=== PATIENT | female | born 1955 | race Caucasian/White ===

== ENCOUNTER 2017-05-29 21:40 | Inpatient (IN) | payer MEDICARE ==
[~2017-05-29 21:40] MED LIST: CARV12.5; CLOP75; DIAZ10; DIGO.125; LASI20TA; LORT5TAB; PREV30CA36; REST15CA; ROSU20; SOMA350T; ZOLO25TA
[2017-05-29 21:50] VITALS: BP 121/71; PULSE 87; RESP 30; TEMP 98.9; O2SAT 85
[2017-05-29 21:53] VITALS: O2SAT 90
[2017-05-29 21:55] VITALS: O2SAT 94
[2017-05-29] MEDS ORDERED: SODIUM CHLORIDE 0.9% FLUSH 10 ML FLUSH IVF PRN (22:00)
[2017-05-29] MEDS ORDERED: DIGO0.12 PO (22:13)
[2017-05-29] MEDS ORDERED: PROT40TA PO (22:13)
[2017-05-29] MEDS ORDERED: CLOP75TA PO (22:16)
[2017-05-29] MEDS ORDERED: ATOR20TA15 PO (22:16)
[2017-05-29] MEDS ORDERED: BROV15NE NEB (22:16)
[2017-05-29] MEDS ORDERED: GABA300C5 PO (22:16)
[2017-05-29] MEDS ORDERED: GUAI600T11 PO (22:16)
[2017-05-29] MEDS ORDERED: CARV6.252 PO (22:16)
--- NOTE | 2017-05-29 22:17 | PD ---
HPI Chief Complaint: Respiratory Symptoms Time Seen by Provider: 21:52 Travel History International Travel<30 days: No Contact w/Intl Traveler<30days: No History of Present Illness HPI 62-year-old female with PMH of heparin-induced thrombocytopenia, cerebral infarct, on Plavix presents to the ED via EMS after nurses in her [facility] were concerned for weakness and breathing difficulties 2 hours. Patient has paralysis on the right side, aphasia secondary to her stroke. She denies headache or dizziness. She denies chest pain or palpitations. She endorses shortness of breath, weakness. She denies abdominal pain or dysuria. She answers simple questions with yes or no or shakes her head but is unable to provide much meaningful history. EMS reports O2 saturations in the 80s on arrival. The patient is not oxygen dependent at the [facility]. PFSH Past Medical History Arthritis: No Asthma: No Autoimmune Disease: No Blood Disorders: No Anxiety: No Depression: No Heart Rhythm Problems: No Cancer: No Cardiovascular Problems: Yes (CHEST PAIN, ANGINA, HEART ATTACK) High Cholesterol: Yes Chemotherapy: No Chest Pain: Yes Congestive Heart Failure: Yes COPD: Yes Cerebrovascular Accident: Yes Coronary Artery Disease: Yes Diabetes: No Diminished Hearing: No Endocrine: No GERD: Yes Glaucoma: No Genitourinary: No Headaches: No Hepatitis: No Hiatal Hernia: Yes Hypertension: Yes Immune Disorder: No Kidney Stones: No Medical other: Yes (dysarthria, htn, hyperlipidemia, COPD) Musculoskeletal: No Neurologic: Yes (STROKE) Psychiatric: No Reproductive: No Respiratory: No Myocardial Infarction: Yes Radiation Therapy: No Renal Failure: No Seizures: No Sickle Cell Disease: No Sleep Apnea: No Thyroid Disease: No Ulcer: No Tetanus Vaccination: Unknown Influenza Vaccination: No Menopausal: Yes Past Surgical History Abdominal Surgery: Yes AICD: Yes Appendectomy: Yes Arteriovenous Shunt: No Body Medical Devices: STATES CARDIAC STINTS Cardiac Surgery: Yes Cholecystectomy: Yes Coronary Artery Bypass Graft: Yes (3 VESSEL BYPASS) Coronary Stent: Yes (MULTIPLE STENT PLACEMENTS) Ear Surgery: No Endocrine Surgery: No Eye Surgery: No Genitourinary Surgery: No Gynecologic Surgery: No Insulin Pump: No Joint Replacement: No Oral Surgery: No Pacemaker: Yes (AICD V-193) Thoracic Surgery: Yes Other Surgery: Yes (CABG X 3 CAROTID ARTERY, APPY, RAUL, AICD) Social History Alcohol Use: No Tobacco Use: No Substance Use: No Allergies-Medications (Allergen,Severity, Reaction): Coded Allergies: adhesive (Unverified Allergy, Severe, 05/29/17) aspirin (Unverified Allergy, Severe, 05/29/17) diatrizoate meglumine (Unverified Allergy, Severe, Hives, 05/29/17) enoxaparin (Unverified Allergy, Severe, 05/29/17) HIT POSITIVE gadobenic acid (Unverified Allergy, Severe, Hives, 05/29/17) gadodiamide (Unverified Allergy, Severe, Hives, 05/29/17) gadoteridol (Unverified Allergy, Severe, Hives, 05/29/17) heparin (porcine) (Unverified Allergy, Severe, 05/29/17) HIT POSITIVE iodine (Unverified Allergy, Severe, 05/29/17) iodixanol (Unverified Allergy, Severe, Hives, 05/29/17) iohexol (Unverified Allergy, Severe, Hives, 05/29/17) sodium iodide (Unverified Allergy, Severe, 05/29/17) sodium iodide (Unverified Allergy, Severe, 05/29/17) sulfamethoxazole (Unverified Allergy, Severe, 05/29/17) trimethoprim (Unverified Allergy, Severe, 05/29/17) Reported Meds & Prescriptions Reported Meds & Active Scripts Active Reported Carvedilol 6.25 Mg Tab 6.25 Mg PO BID Mucus Relief ER (Guaifenesin) 600 Mg Tab 600 Mg PO BID PRN Gabapentin 300 Mg Cap 300 Mg PO TID Brovana Neb (Arformoterol Neb) 15 Mcg/2 Ml Vial 1 Nebule NEB BID Maintenance treatment of bronchoconstriction in COPD. Atorvastatin (Atorvastatin Calcium) 20 Mg Tab 20 Mg PO HS Clopidogrel (Clopidogrel Bisulfate) 75 Mg Tab 75 Mg PO DAILY Digoxin 0.125 Mg Tab 125 Mcg PO DAILY Protonix (Pantoprazole Sodium) 40 Mg Tab 40 Mg PO DAILY Review of Systems Except as stated in HPI: all other systems reviewed are Neg Physical Exam Narrative GENERAL: Well-nourished, well-developed thin white female with extra work of breathing. SKIN: Focused skin assessment warm/dry. HEAD: Normocephalic. Atraumatic. EYES: No scleral icterus. No injection or drainage. NECK: Supple, trachea midline. No JVD or lymphadenopathy. CARDIOVASCULAR: Regular rate and rhythm without murmurs, gallops, or rubs. RESPIRATORY: Breath sounds equal bilaterally. Positive accessory muscle use. GASTROINTESTINAL: Abdomen soft, non-tender, nondistended. MUSCULOSKELETAL: No cyanosis, or edema. NEUROLOGICAL: Awake and alert. Aphasic. Paralysis with contractures of the right side. BACK: Nontender without obvious deformity. No CVA tenderness. Data Data Last Documented VS Vital Signs Date Time Temp Pulse Resp B/P (MAP) Pulse Ox O2 Delivery O2 Flow Rate FiO2 05/29/17 21:55 94 Nasal Cannula 6.00 05/29/17 21:50 98.9 87 30 Orders Orders Complete Blood Count With Diff (05/29/17 21:53) Comprehensive Metabolic Panel (05/29/17 21:53) B-Type Natriuretic Peptide (05/29/17 21:53) Act Partial Throm Time (Ptt) (05/29/17 21:53) Prothrombin Time / Inr (Pt) (05/29/17 21:53) Ckmb (Isoenzyme) Profile (05/29/17 21:53) Troponin I (05/29/17 21:53) Urinalysis - C+S If Indicated (05/29/17 21:53) Iv Access Insert/Monitor (05/29/17 21:53) Electrocardiogram (05/29/17 21:53) Ecg Monitoring (05/29/17 21:53) Oximetry (05/29/17 21:53) Oxygen Administration (05/29/17 21:53) Chest, Single Ap (05/29/17 21:53) Sodium Chloride 0.9% Flush (Ns Flush) (05/29/17 22:00) Ventilation & Perfusion Scan (05/29/17 ) Furosemide Inj (Lasix Inj) (05/29/17 22:45) Resp Bipap / Cpap Non Invas Vt (05/29/17 ) Urinary Catheter Insert/Apply (05/29/17 22:44) Labs Laboratory Tests Test 05/29/17 22:30 White Blood Count 17.8 TH/MM3 Red Blood Count 4.08 MIL/MM3 Hemoglobin 12.1 GM/DL Hematocrit 37.2 % Mean Corpuscular Volume 91.1 FL Mean Corpuscular Hemoglobin 29.6 PG Mean Corpuscular Hemoglobin Concent 32.5 % Red Cell Distribution Width 14.9 % Platelet Count 271 TH/MM3 Mean Platelet Volume 8.3 FL Neutrophils (%) (Auto) 93.3 % Lymphocytes (%) (Auto) 3.0 % Monocytes (%) (Auto) 3.5 % Eosinophils (%) (Auto) 0.0 % Basophils (%) (Auto) 0.2 % Neutrophils # (Auto) 16.6 TH/MM3 Lymphocytes # (Auto) 0.5 TH/MM3 Monocytes # (Auto) 0.6 TH/MM3 Eosinophils # (Auto) 0.0 TH/MM3 Basophils # (Auto) 0.0 TH/MM3 CBC Comment DIFF FINAL Differential Comment Prothrombin Time 11.2 SEC Prothromb Time International Ratio 1.1 RATIO Activated Partial Thromboplast Time 25.4 SEC MDM Medical Decision Making Medical Screen Exam Complete: Yes Emergency Medical Condition: Yes Differential Diagnosis PE versus ACS versus aspiration pneumonia versus pneumonia versus other Narrative Course 62-year-old female with PMH of heparin-induced thrombocytopenia, cerebral infarct, on Plavix presents to the ED via EMS for evaluation after nurses at her [facility] found her struggling to breathe. Patient has residual aphasia and right -sided weakness from her stroke. She is unable to provide much information. However, O2 sats are 85% on room air on presentation and there is extra work of breathing. Lung sounds clear and equal bilaterally. The 12-lead provided by EMS shows S1, Q3, T3, suspicious for PE. Patient's placed on 6 L nasal cannula to sustain O2 sats in the 90s. BiPAP was ordered. X-ray suggests pulmonary edema. Patient was administered 20 mg Lasix IV. Patient has an allergy to IV dye. EKG rate 84, paced rhythm, S1 every 3 T3 again noted. Reviewed by Dr. Ortega. VQ scan, lab work, ordered and pending. Patient signed out to Dr. Ortega at the end of shift. Please see his note for disposition. Daija German May 29, 2017 22:17
--- NOTE | 2017-05-29 22:22 | RADRPT ---
EXAM DATE/TIME: 05/29/2017 21:58 [facility] COMPARISON: No previous studies available for comparison. INDICATIONS : Shortness of breath. MEDICAL HISTORY : Hypertension. Chronic obstructive pulmonary disease. Myocardial infarction. Stroke. SURGICAL HISTORY : CABG. Pacemaker. Cardiac stent. ENCOUNTER: Initial ACUITY: 1 day PAIN SCORE: 0/10 LOCATION: Bilateral chest FINDINGS: A single AP erect portable view of the chest was obtained and demonstrates the patient status post me eliazar sternotomy. There is a left subclavian AV sequential transvenous pacer in place with defibrillat or lead. The heart size is mildly prominent. Perihilar and bibasilar opacities are present. The costo phrenic angles are blunted. The bony thorax is intact with moderate scoliosis of the thoracic spine. CONCLUSION: 1. Perihilar and bibasilar opacities most characteristic of pulmonary edema. 2. Small pleural effusions. Filippo Jung MD on May 29, 2017 at 22:18 Board Certified Radiologist. This report was verified electronically.
[2017-05-29 22:39] LABS: AUTOMATED NEUTROPHIL # 16.6 TH/MM3 (1.8-7.7); BASOPHIL % 0.2 % (0.0-2.0); HEMATOCRIT 37.2 % (35.0-46.0); HEMOGLOBIN 12.1 GM/DL (11.6-15.3); LYMPHOCYTE # 0.5 TH/MM3 (1.0-4.8); MEAN CELL VOLUME 91.1 FL (80.0-100.0); MEAN CORPUSCULAR HEMOGLOBIN 29.6 PG (27.0-34.0); MEAN CORPUSCULAR HGB CONC 32.5 % (32.0-36.0); MEAN PLATELET VOLUME 8.3 FL (7.0-11.0); MONO % 3.5 % (0.0-8.0); MONOCYTE # 0.6 TH/MM3 (0-0.9); NEUT % 93.3 % (16.0-70.0); PLATELET COUNT 271 TH/MM3 (150-450); RED BLOOD COUNT 4.08 MIL/MM3 (4.00-5.30); RED CELL DISTRIBUTION WIDTH 14.9 % (11.6-17.2); WHITE BLOOD COUNT 17.8 TH/MM3 (4.0-11.0)
[2017-05-29] MEDS ORDERED: FUROSEMIDE 20 MG/2 ML VIAL IV PUSH ONE (22:45)
[2017-05-29 22:47] VITALS: O2SAT 95
[2017-05-29 22:49] LABS: INTERNATIONAL NORMALIZED RATIO 1.1 RATIO; PROTHROMBIN TIME - PATIENT 11.2 SEC (9.8-11.6)
[2017-05-29 22:51] LABS: AST (GOT) 29 U/L (15-37); BICARBONATE 25.1 MEQ/L (21.0-32.0); BLOOD UREA NITROGEN 21 MG/DL (7-18); CALCIUM 7.7 MG/DL (8.5-10.1); CHLORIDE 111 MEQ/L (98-107); CREATININE 0.57 MG/DL (0.50-1.00); GLOMERULAR FILTRATION RATE 107 ML/MIN (>89); GLUCOSE,RANDOM 111 MG/DL (74-106); SODIUM (NA) 143 MEQ/L (136-145)
[2017-05-29 22:52] LABS: ALT (GPT) 21 U/L (10-53)
[2017-05-29 22:56] LABS: ALKALINE PHOSPHATASE 88 U/L (45-117); TOTAL BILIRUBIN ADULT 0.7 MG/DL (0.2-1.0); TOTAL PROTEIN 5.1 GM/DL (6.4-8.2); TROPONIN I LESS THAN 0.02 NG/ML (0.02-0.05)
[2017-05-29] MEDS ORDERED: VANCOMYCIN INJ 1,000 MG in SODIUM CHLOR 0.9% 250 ML INJ 250 ML IV ONE (23:45)
[2017-05-29] MEDS ORDERED: PIPERACIL-TAZO 4.5 GM PREMIX 100 ML IV ONE (23:45)
[2017-05-30] VITALS (25 sets, daily range): BP systolic 82–144; BP diastolic 46–61; PULSE 66–98; RESP 16–20; TEMP 97.8–98.4; O2SAT 94–100
--- NOTE | 2017-05-30 00:22 | RADRPT ---
EXAM DATE/TIME: 05/29/2017 23:57 [facility] COMPARISON: CHEST SINGLE AP, May 29, 2017, 21:58. INDICATIONS : Short of breath for 1 day. DOSE: 8.1 mCi Tc99m MAA IV 3 mCi Tc99m DTPA aerosol MEDICAL HISTORY : Chronic obstructive pulmonary disease. Myocardial infarction. Hypertension. SURGICAL HISTORY : CABG Pacemaker. Coronary artery stent. ENCOUNTER: Initial ACUITY: 1 day PAIN SCALE: 3/10 LOCATION: Bilateral chest TECHNIQUE: Following five minutes of tidal breathing of DTPA aerosol, planar images of the lungs were performed in eight projections. The patient was then injected with MAA, and eight-view perfusion scan was perf ormed. FINDINGS: There is a homogeneous pattern of aerosol delivery to the periphery of both lungs. No focal ventilat ory defects are seen. Inhomogeneous ventilation and patchy central deposition of tracer. CONCLUSION: Low probability scan for pulmonary embolism Devin Castro MD on May 30, 2017 at 0:17 Board Certified Radiologist. This report was verified electronically.
--- NOTE | 2017-05-30 00:54 | PD ---
Data Data Last Documented VS Vital Signs Date Time Temp Pulse Resp B/P (MAP) Pulse Ox O2 Delivery O2 Flow Rate FiO2 05/30/17 00:30 98 90 05/30/17 00:29 84 18 97/55 (69) BiPAP 05/29/17 21:55 6.00 05/29/17 21:50 98.9 Orders Orders Complete Blood Count With Diff (05/29/17 21:53) Comprehensive Metabolic Panel (05/29/17 21:53) B-Type Natriuretic Peptide (05/29/17 21:53) Act Partial Throm Time (Ptt) (05/29/17 21:53) Prothrombin Time / Inr (Pt) (05/29/17 21:53) Ckmb (Isoenzyme) Profile (05/29/17:53) Troponin I (05/29/17:53) Urinalysis - C+S If Indicated (05/29/17 21:53) Iv Access Insert/Monitor (05/29/17 21:53) Electrocardiogram (05/29/17 21:53) Ecg Monitoring (05/29/17 21:53) Oximetry (05/29/17 21:53) Oxygen Administration (05/29/17 21:53) Chest, Single Ap (05/29/17 21:53) Sodium Chloride 0.9% Flush (Ns Flush) (05/29/17 22:00) Ventilation & Perfusion Scan (05/29/17 ) Furosemide Inj (Lasix Inj) (05/29/17 22:45) Resp Bipap / Cpap Non Invas Vt (05/29/17 ) Urinary Catheter Insert/Apply (05/29/17 22:44) Piperacil-Tazo 4.5 Gm Premix (Zosyn 4.5 (05/29/17 23:45) Vancomycin Inj (Vancomycin Inj) (05/29/17 23:45) Lactic Acid Sepsis Protocol (05/30/17 01:02) Blood Culture (05/30/17 01:02) Labs Laboratory Tests Test 05/29/17 22:30 White Blood Count 17.8 TH/MM3 Red Blood Count 4.08 MIL/MM3 Hemoglobin 12.1 GM/DL Hematocrit 37.2 % Mean Corpuscular Volume 91.1 FL Mean Corpuscular Hemoglobin 29.6 PG Mean Corpuscular Hemoglobin Concent 32.5 % Red Cell Distribution Width 14.9 % Platelet Count 271 TH/MM3 Mean Platelet Volume 8.3 FL Neutrophils (%) (Auto) 93.3 % Lymphocytes (%) (Auto) 3.0 % Monocytes (%) (Auto) 3.5 % Eosinophils (%) (Auto) 0.0 % Basophils (%) (Auto) 0.2 % Neutrophils # (Auto) 16.6 TH/MM3 Lymphocytes # (Auto) 0.5 TH/MM3 Monocytes # (Auto) 0.6 TH/MM3 Eosinophils # (Auto) 0.0 TH/MM3 Basophils # (Auto) 0.0 TH/MM3 CBC Comment DIFF FINAL Differential Comment Prothrombin Time 11.2 SEC Prothromb Time International Ratio 1.1 RATIO Activated Partial Thromboplast Time 25.4 SEC Blood Urea Nitrogen 21 MG/DL Creatinine 0.57 MG/DL Random Glucose 111 MG/DL Total Protein 5.1 GM/DL Albumin 2.0 GM/DL Calcium Level 7.7 MG/DL Alkaline Phosphatase 88 U/L Aspartate Amino Transf (AST/SGOT) 29 U/L Alanine Aminotransferase (ALT/SGPT) 21 U/L Total Bilirubin 0.7 MG/DL Sodium Level 143 MEQ/L Potassium Level 3.8 MEQ/L Chloride Level 111 MEQ/L Carbon Dioxide Level 25.1 MEQ/L Anion Gap 7 MEQ/L Estimat Glomerular Filtration Rate 107 ML/MIN Total Creatine Kinase 31 U/L Troponin I LESS THAN 0.02 NG/ML B-Type Natriuretic Peptide 117 PG/ML MDM Medical Record Reviewed: Yes Supervised Visit with YARIEL: Yes Narrative Course I, Dr. Ortega, have reviewed the advance practice practitioner's documentation and am in agreement, met with the patient face to face, made the diagnosis, and the medical decision making was done by me. *My assessment and Findings: Multiple medical comorbidities with pneumonia. Patient has been on BiPAP with an FiO2 of 90% with a pulse ox of 98. Zosyn and vancomycin started. CBC & BMP Diagram 05/29/17 22:30 Total Protein 5.1 L, Albumin 2.0 L, Calcium Level 7.7 L, Alkaline Phosphatase 88 , Aspartate Amino Transf (AST/SGOT) 29, Alanine Aminotransferase (ALT/SGPT) 21, Total Bilirubin 0.7 Last Impressions Chest X-Ray 05/29/17 [id number] Signed Impressions: Service Date/Time: May 21:58 - CONCLUSION: 1. Perihilar and bibasilar opacities most characteristic of pulmonary edema. 2. Small pleural effusions. Filippo Jung MD Lung Scan-V Nuclear Medicine 05/29/17 0000 Signed Impressions: Service Date/Time: May 23:57 - CONCLUSION: Low probability scan for pulmonary embolism Devin Castro MD Patient will be admitted for treatment of pneumonia. Her vital signs are within acceptable limits on BiPAP. d/w Dr Liya YOUNGG ordered along with lactic acid Critical Care Narrative Aggregate critical care time was 35 minutes. Time to perform other separately billable procedures was not included in the critical care time. My time did not include minutes spent treating any other patients simultaneously or on activities that did not directly contribute to the patient's treatment. The services I provided to this patient were to treat and/or prevent clinically significant deterioration that could result in: Cardiopulmonary arrest, respiratory arrest I provided critical care services requiring my management, as noted below: Chart data review, documentation time, medication orders and management, vital sign assessments/reviewing monitor data, ordering and reviewing lab tests, ordering and interpreting/reviewing x-rays and diagnostic studies, care of the patient and discussion of the patient with the admitting physicians. Diagnosis Primary Impression: PNA (pneumonia) Qualified Codes: J18.9 - Pneumonia, unspecified organism Additional Impressions: Hypoxia SIRS (systemic inflammatory response syndrome) Admitting Information Admitting Physician Requests: it Samson Ortega MD May 30, 2017 00:54
[2017-05-30] MEDS ORDERED: ACETAMINOPHEN 325 MG TAB PO PRN (02:00)
[2017-05-30] MEDS ORDERED: MAGNESIUM HYDROXIDE SUSP 30 ML CUP PO PRN (02:00)
[2017-05-30] MEDS ORDERED: LACTULOSE SYRUP 20 GM/30 ML CUP PO PRN (02:00)
[2017-05-30] MEDS ORDERED: SENNOSIDES 8.6 MG TAB PO PRN (02:00)
[2017-05-30] MEDS ORDERED: NALOXONE HCL 0.4 MG/ML AMP IV PUSH PRN (02:00)
[2017-05-30] MEDS ORDERED: ONDANSETRON HCL 4 MG/2 ML VIAL IVP PRN (02:00)
[2017-05-30] MEDS ORDERED: Vancomycin Consult Pharmacy 1 EA OTHER SCH (02:00)
[2017-05-30] MEDS ORDERED: BISACODYL 10 MG SUPP RECTAL PRN (02:00)
[2017-05-30] MEDS ORDERED: RESP: ALBUTEROL 2.5 MG/IPRATROPIUM 0.5 MG NEB (PRN) NEB (02:15)
--- NOTE | 2017-05-30 02:24 | HHI.HP ---
[facility] Primary Care Physician Unknown Admission Diagnosis PNA; SIRS; Hypoxia Diagnoses: Travel History International Travel<30 Days: No Contact w/Intl Traveler <30 Da: No History of Present Illness 62-year-old female with a past medical history significant for hypertension, COPD, CHF (no recent echo for comparison), history of CVA with residual right- sided hemiparesis and CAD presents to the emergency department from [facility] [place] [facility] facility for the evaluation of weakness and difficulty breathing 2 hours. The patient is on BiPAP when I evaluated her. She will open her eyes to voice but does not answer questions. Per emergency department documentation the patient endorses shortness of breath and weakness. She denied abdominal pain and dysuria. She denied chest pain/palpitations. No headaches or dizziness. Review of Systems Unable to obtain secondary to patient's clinical condition. Past Family Social History Past Medical History (Obtained from medical records) hypertension, COPD, CHF (no recent echo for comparison), history of CVA with residual right-sided hemiparesis and CAD Past Surgical History Unable to obtain secondary to clinical condition Reported Medications Reported Meds & Active Scripts Active Reported Carvedilol 6.25 Mg Tab 6.25 Mg PO BID Mucus Relief ER (Guaifenesin) 600 Mg Tab 600 Mg PO BID PRN Gabapentin 300 Mg Cap 300 Mg PO TID Brovana Neb (Arformoterol Neb) 15 Mcg/2 Ml Vial 1 Nebule NEB BID Maintenance treatment of bronchoconstriction in COPD. Atorvastatin (Atorvastatin Calcium) 20 Mg Tab 20 Mg PO HS Clopidogrel (Clopidogrel Bisulfate) 75 Mg Tab 75 Mg PO DAILY Digoxin 0.125 Mg Tab 125 Mcg PO DAILY Protonix (Pantoprazole Sodium) 40 Mg Tab 40 Mg PO DAILY Allergies: Coded Allergies: adhesive (Unverified Allergy, Severe, 05/29/17) aspirin (Unverified Allergy, Severe, 05/29/17) diatrizoate meglumine (Unverified Allergy, Severe, Hives, 05/29/17) enoxaparin (Unverified Allergy, Severe, 05/29/17) HIT POSITIVE gadobenic acid (Unverified Allergy, Severe, Hives, 05/29/17) gadodiamide (Unverified Allergy, Severe, Hives, 05/29/17) gadoteridol (Unverified Allergy, Severe, Hives, 05/29/17) heparin (porcine) (Unverified Allergy, Severe, 05/29/17) HIT POSITIVE iodine (Unverified Allergy, Severe, 05/29/17) iodixanol (Unverified Allergy, Severe, Hives, 05/29/17) iohexol (Unverified Allergy, Severe, Hives, 05/29/17) sodium iodide (Unverified Allergy, Severe, 05/29/17) sodium iodide (Unverified Allergy, Severe, 05/29/17) sulfamethoxazole (Unverified Allergy, Severe, 05/29/17) trimethoprim (Unverified Allergy, Severe, 05/29/17) Family History Unable to obtain Social History Unable to obtain Physical Exam Vital Signs Vital Signs Date Time Temp Pulse Resp B/P (MAP) Pulse Ox O2 Delivery O2 Flow Rate FiO2 05/30/17 01:22 79 18 82/50 (61) 94 BiPAP 80 05/30/17 00:30 98 90 05/30/17 00:29 84 18 97/55 (69) 96 BiPAP 05/29/17 22:47 95 100 05/29/17 21:55 94 Nasal Cannula 6.00 05/29/17 21:55 94 Nasal Cannula 6.00 05/29/17 21:53 90 Nasal Cannula 4.00 05/29/17 21:50 98.9 87 30 121/71 (88) 85 Room Air Physical Exam GENERAL: This is a well-nourished, well-developed patient, in no apparent distress. SKIN: No rashes, ecchymoses or lesions. Cool and dry. HEAD: Atraumatic. Normocephalic. No temporal or scalp tenderness. EYES: Pupils equal round and reactive. Extraocular motions intact. No scleral icterus. No injection or drainage. ENT: Nose without bleeding, purulent drainage or septal hematoma. Throat without erythema, tonsillar hypertrophy or exudate. Uvula midline. Airway patent. NECK: Trachea midline. No JVD or lymphadenopathy. Supple, nontender, no meningeal signs. CARDIOVASCULAR: Regular rate and rhythm without murmurs, gallops, or rubs. RESPIRATORY: Clear to auscultation. Breath sounds equal bilaterally. No wheezes , rales, or rhonchi. GASTROINTESTINAL: Abdomen soft, non-tender, nondistended. No hepato-splenomegaly , or palpable masses. No guarding. MUSCULOSKELETAL: Extremities without clubbing, cyanosis, or edema. No joint tenderness, effusion, or edema noted. No calf tenderness. NEUROLOGICAL: Opens eyes to voice. Does not follow commands. Laboratory Laboratory Tests Test 05/29/17 22:30 05/30/17 01:15 05/30/17 01:19 White Blood Count 17.8 Red Blood Count 4.08 Hemoglobin 12.1 Hematocrit 37.2 Mean Corpuscular Volume 91.1 Mean Corpuscular Hemoglobin 29.6 Mean Corpuscular Hemoglobin Concent 32.5 Red Cell Distribution Width 14.9 Platelet Count 271 Mean Platelet Volume 8.3 Neutrophils (%) (Auto) 93.3 Lymphocytes (%) (Auto) 3.0 Monocytes (%) (Auto) 3.5 Eosinophils (%) (Auto) 0.0 Basophils (%) (Auto) 0.2 Neutrophils # (Auto) 16.6 Lymphocytes # (Auto) 0.5 Monocytes # (Auto) 0.6 Eosinophils # (Auto) 0.0 Basophils # (Auto) 0.0 CBC Comment DIFF FINAL Differential Comment Prothrombin Time 11.2 Prothromb Time International Ratio 1.1 Activated Partial Thromboplast Time 25.4 Blood Urea Nitrogen 21 Creatinine 0.57 Random Glucose 111 Total Protein 5.1 Albumin 2.0 Calcium Level 7.7 Alkaline Phosphatase 88 Aspartate Amino Transf (AST/SGOT) 29 Alanine Aminotransferase (ALT/SGPT) 21 Total Bilirubin 0.7 Sodium Level 143 Potassium Level 3.8 Chloride Level 111 Carbon Dioxide Level 25.1 Anion Gap 7 Estimat Glomerular Filtration Rate 107 Total Creatine Kinase 31 Troponin I LESS THAN 0.02 B-Type Natriuretic Peptide 117 Lactic Acid Level 1.4 Blood Gas Puncture Site LT RADIAL Blood Gas Patient Temperature 98.6 Blood Gas HCO3 26 Blood Gas Base Excess 1.5 Blood Gas Oxygen Saturation 94 Arterial Blood pH 7.39 Arterial Blood Partial Pressure CO2 44 Arterial Blood Partial Pressure O2 81 Arterial Blood Oxygen Content 16.8 Arterial Blood Carboxyhemoglobin 1.4 Arterial Blood Methemoglobin 0.8 Blood Gas Hemoglobin 12.7 Oxygen Delivery Device BIPAP Blood Gas Inspired Oxygen 80 Date/Time Source Procedure Growth Status 05/30/17 01:15 Blood Peripheral Aerobic Blood Culture Pending Received 05/30/17 01:15 Blood Peripheral Anaerobic Blood Culture Pending Received Result Diagram: 05/29/170 05/29/172229 Caprini VTE Risk Assessment Caprini VTE Risk Assessment: Mod/High Risk (score >= 2) Caprini Risk Assessment Model Point Value = 1 Point Value = 2 Point Value = 3 Point Value = 5 Age 41-60 Minor surgery BMI > 25 kg/m2 Swollen legs Varicose veins or History of unexplained or recurrent spontaneous Oral contraceptives or hormone replacement Sepsis (< 1 month) Serious lung disease, including pneumonia (< 1 month) Abnormal pulmonary function Acute myocardial infarction Congestive heart failure (< 1 month) History of inflammatory bowel disease Medical patient at bed rest Age 61-74 Arthroscopic surgery Major open surgery (> 45 min) Laparoscopic surgery (> 45 min) Malignancy Confined to bed (> 72 hours) Immobilizing plaster cast Central venous access Age >= 75 History of VTE Family history of VTE Factor V Leiden Prothrombin [id number] Lupus anticoagulant Anticardiolipin antibodies Elevated serum homocysteine Heparin-induced thrombocytopenia Other congenital or acquired thrombophilia Stroke (< 1 month) Elective arthroplasty Hip, pelvis, or leg fracture Acute spinal cord injury (< 1 month) Prophylaxis Regimen Total Risk Factor Score Risk Level Prophylaxis Regimen 0-1 Low Early ambulation 2 Moderate Order ONE of the following: *Sequential Compression Device (SCD) *Heparin 5000 units SQ BID 3-4 Higher Order ONE of the following medications: *Heparin 5000 units SQ TID *Enoxaparin/Lovenox 40 mg SQ daily (WT < 150 kg, CrCl > 30 mL/min) *Enoxaparin/Lovenox 30 mg SQ daily (WT < 150 kg, CrCl > 10-29 mL/min) *Enoxaparin/Lovenox 30 mg SQ BID (WT < 150 kg, CrCl > 30 mL/min) AND/OR *Sequential Compression Device (SCD) 5 or more Highest Order ONE of the following medications: *Heparin 5000 units SQ TID (Preferred with Epidurals) *Enoxaparin/Lovenox 40 mg SQ daily (WT < 150 kg, CrCl > 30 mL/min) *Enoxaparin/Lovenox 30 mg SQ daily (WT < 150 kg, CrCl > 10-29 mL/min) *Enoxaparin/Lovenox 30 mg SQ BID (WT < 150 kg, CrCl > 30 mL/min) AND *Sequential Compression Device (SCD) Assessment and Plan Assessment and Plan Assessment/plan: 1. Healthcare associated pneumonia/sepsis/acute respiratory failure Patient with leukocytosis, hypoxia and hypotension ABG 7.39/44/81/26 Chest x-ray significant for perihilar and bibasilar opacities, personally reviewed Vancomycin/Zosyn BiPAP - wean as tolerated NS bolus for Hypotension 2. History of CVA Continue home Plavix Physical therapy consulted 3. CAD/CHF Continue home digoxin, carvedilol 4. Hyperlipidemia Continue home statin 5. COPD Duo nebs Plan as above FEN Heart healthy diet Electrolytes: monitor and replete prn Heparin Physician Certification 2 Midnight Certification Type: Admission for Inpatient Services Order for Inpatient Services The services are ordered in accordance with Medicare regulations or non- Medicare payer requirements, as applicable. In the case of services not specified as inpatient-only, they are appropriately provided as inpatient services in accordance with the 2-midnight benchmark. Estimated LOS (days): 2 2 days is the estimated time the patient will need to remain in the hospital, assuming treatment plan goals are met and no additional complications. Post-Hospital Plan: Not yet determined Mary Jo Nickerson MD May 30, 2017 02:24
[2017-05-30] MEDS ORDERED: SODIUM CHLORID 0.9% 500 ML INJ 500 ML IV ONE (02:30)
[2017-05-30 03:33] LABS: BACTERIA, URINE RARE /hpf; BILIRUBIN, URINE NEG (NEG); BLOOD, URINE NEG (NEG); GLUCOSE,URINE NEG (NEG); HYALINE CAST, URINE 2 /lpf (RARE); KETONE, URINE NEG (NEG); MUCUS URINE FEW /lpf (OCC); NITRITE,URINE NEG (NEG); PH, URINE 5.5 (5.0-8.5); SQUAMOUS EPITHELIAL CELL URINE <1 /hpf (0-5); URINE COLOR YELLOW (YELLW/STRAW); URINE LEUKOCYTE ESTERASE NEG (NEG)
[2017-05-30] MEDS: PIPERACIL-TAZO 4.5 GM PREMIX 100 ML IV SCH ×3 (06:23→17:38)
[2017-05-30] MEDS: HEPARIN SODIUM - SQ 10,000 UNITS/ML VIAL SQ SCH ×2 (06:23→18:17)
[2017-05-30] MEDS ORDERED: SODIUM CHLOR 0.9% 250 ML INJ 250 ML IV ONE (08:15)
[2017-05-30] MEDS: CARVEDILOL 6.25 MG TAB PO SCH ×2 (09:00→22:22)
[2017-05-30] MEDS: SODIUM CHLORIDE 0.9% FLUSH 10 ML FLUSH IV FLUSH SCH ×2 (09:00→22:23)
[2017-05-30] MEDS ORDERED: ARFORMOTEROL NEB SCH (09:00)
[2017-05-30] MEDS: DOCUSATE SODIUM 50 MG/SENNA 8.6 MG TAB PO SCH ×2 (09:14→22:22)
[2017-05-30] MEDS: PANTOPRAZOLE SOD 40 MG DELAYED RELEASE TAB PO SCH (09:14)
[2017-05-30] MEDS: DIGOXIN 0.125 MG TAB PO SCH (09:14)
[2017-05-30] MEDS: CLOPIDOGREL 75 MG TAB PO SCH (09:15)
[2017-05-30] MEDS: RESP: ALBUTEROL 2.5 MG/IPRATROPIUM 0.5 MG NEB (SCH) NEB ×2 (11:19→19:58)
[2017-05-30] MEDS: VANCOMYCIN INJ 1,000 MG in SODIUM CHLOR 0.9% 250 ML INJ 250 ML IV SCH (13:51)
--- NOTE | 2017-05-30 21:03 | EKG ---
Date Performed: 05/29/2017 Time Performed: 22:12:49 PTAGE: 62 years EKG: Sinus rhythm WITH P-WAVE SYNCHRONOUS VENTRICULAR PACING VENTRICULAR FUSION VENTRICULAR PACING IS NEW SINCE PRIOR TRACING ABNORMAL RHYTHM ECG PREVIOUS TRACING : 10/20/2006 13.57 DOCTOR: Salo Gallo Interpretating Date/Time 05/30/2017 21:02:28
[2017-05-30] MEDS: ATORVASTATIN 20 MG TAB PO SCH (22:22)
[2017-05-31] VITALS (10 sets, daily range): BP systolic 99–129; BP diastolic 54–68; PULSE 66–86; RESP 18–20; TEMP 97.3–98.1; O2SAT 94–100
[2017-05-31] MEDS: VANCOMYCIN INJ 1,000 MG in SODIUM CHLOR 0.9% 250 ML INJ 250 ML IV SCH ×2 (01:57→13:13)
[2017-05-31] MEDS: HEPARIN SODIUM - SQ 10,000 UNITS/ML VIAL SQ SCH ×2 (06:37→16:56)
[2017-05-31 06:44] LABS: AUTOMATED NEUTROPHIL # 12.2 TH/MM3 (1.8-7.7); BASOPHIL # 0.2 TH/MM3 (0-0.2); BASOPHIL % 1.6 % (0.0-2.0); EOSINOPHIL % 0.3 % (0.0-4.0); HEMATOCRIT 36.9 % (35.0-46.0); LYMPH % 5.1 % (9.0-44.0); LYMPHOCYTE # 0.7 TH/MM3 (1.0-4.8); MEAN CELL VOLUME 91.5 FL (80.0-100.0); MEAN CORPUSCULAR HEMOGLOBIN 29.8 PG (27.0-34.0); MEAN CORPUSCULAR HGB CONC 32.6 % (32.0-36.0); MEAN PLATELET VOLUME 8.8 FL (7.0-11.0); MONO % 4.4 % (0.0-8.0); MONOCYTE # 0.6 TH/MM3 (0-0.9); NEUT % 88.6 % (16.0-70.0); PLATELET COUNT 274 TH/MM3 (150-450); RED BLOOD COUNT 4.03 MIL/MM3 (4.00-5.30); RED CELL DISTRIBUTION WIDTH 15.2 % (11.6-17.2); WHITE BLOOD COUNT 13.8 TH/MM3 (4.0-11.0)
[2017-05-31 07:19] LABS: BICARBONATE 27.2 MEQ/L (21.0-32.0); CALCIUM 8.5 MG/DL (8.5-10.1); CREATININE 0.4 MG/DL (0.50-1.00)
[2017-05-31] MEDS ORDERED: POTASSIUM BICARBONATE 25 MEQ EFFERVESCENT TAB PO ONE (08:30)
--- NOTE | 2017-05-31 08:31 | HHI.PR ---
Subjective Remarks In bed she appears chronically ill. Feels very tired. Not eating much. No appetite. No fever or chills. No cough. With some shortness of breath, satting well on 2 L by nasal cannula. No nausea or vomiting no diarrhea or constipation. Objective Vitals Vital Signs Date Time Temp Pulse Resp B/P (MAP) Pulse Ox O2 Delivery O2 Flow Rate FiO2 05/31/17 04:00 97.7 82 18 121/67 (85) 94 05/31/17 00:00 98.1 78 18 127/64 (85) 100 05/30/17 20:03 94 Nasal Cannula 2.00 05/30/17 20:00 98.4 83 18 122/61 (81) 100 05/30/17 18:42 97.8 86 17 100/58 (72) 96 05/30/17 18:05 05/30/17 17:00 76 16 121/55 (77) 99 Nasal Cannula 4.00 05/30/17 16:09 68 16 118/60 (79) 99 Nasal Cannula 4.00 05/30/17 15:00 78 16 101/58 (72) 96 Nasal Cannula 4.00 05/30/17 12:30 70 16 104/58 (73) 98 Simple Mask 9.00 05/30/17 11:30 70 16 144/59 (87) 98 Simple Mask 9.00 05/30/17 10:30 78 16 102/52 (69) 98 Simple Mask 9.00 05/30/17 09:15 77 16 91/54 (66) 99 Simple Mask 9.00 I/O 05/30/17 05/30/17 05/30/17 05/31/17 05/31/17 05/31/17 07:00 15:00 23:00 07:00 15:00 23:00 Intake Total 950 ml Output Total 1400 ml 400 ml Balance -450 ml -400 ml Intake IV Total 950 ml Output Urine Total 1400 ml 400 ml Result Diagram: 05/31/17 0533 05/31/17 0533 Imaging Last Impressions Chest X-Ray 05/29/17 215 Signed Impressions: Service Date/Time: May 21:58 - CONCLUSION: 1. Perihilar and bibasilar opacities most characteristic of pulmonary edema. 2. Small pleural effusions. Filippo Jung MD Lung Scan-VQ Nuclear Medicine 05/29/17 0000 Signed Impressions: Service Date/Time: May 23:57 - CONCLUSION: Low probability scan for pulmonary embolism Devin Castro MD Objective Remarks GENERAL: This is a well-nourished, well-developed patient, in no apparent distress. CARDIOVASCULAR: Regular rate and rhythm without murmurs, gallops, or rubs. RESPIRATORY: Clear to auscultation. Breath sounds equal bilaterally. No wheezes , rales, or rhonchi. GASTROINTESTINAL: Abdomen soft, non-tender, nondistended. No hepato-splenomegaly , or palpable masses. No guarding. MUSCULOSKELETAL: Extremities without clubbing, cyanosis, or edema. No joint tenderness, effusion, or edema noted. No calf tenderness. NEUROLOGICAL: Opens eyes to voice. Does not follow commands. A/P Assessment and Plan Healthcare associated pneumonia Severe sepsis Acute respiratory failure Patient with leukocytosis, tachycardia, hypoxia and hypotension on admission ABG 7.39/44/81/26 Chest x-ray significant for perihilar and bibasilar opacities, personally reviewed Vancomycin/Zosyn BiPAP - wean as tolerated NS bolus for Hypotension. Monitor closely VS. BP is better controlled. Cont IVF History of CVA Continue home Plavix Physical therapy consulted CAD/CHF Continue home digoxin, carvedilol Hyperlipidemia Continue home statin COPD Duo nebs Plan as above Heart healthy diet Electrolytes: monitor and replete prn Discussed with the patient. nurse Patient with severe sepsis resolving. poss DC in 2-3 days if improves. Tamara Santiago MD May 31, 2017 08:31
[2017-05-31] MEDS ORDERED: POTASSIUM CHLORIDE 10 MEQ CONTROLLED RELEASE TAB PO ONE (08:45)
[2017-05-31] MEDS ORDERED: MAGNESIUM OXIDE 400 MG TAB PO ONE (08:45)
[2017-05-31] MEDS: RESP: ALBUTEROL 2.5 MG/IPRATROPIUM 0.5 MG NEB (SCH) NEB ×2 (09:14→20:08)
[2017-05-31] MEDS: DOCUSATE SODIUM 50 MG/SENNA 8.6 MG TAB PO SCH ×2 (10:05→22:07)
[2017-05-31] MEDS: CARVEDILOL 6.25 MG TAB PO SCH ×2 (10:05→22:07)
[2017-05-31] MEDS: CLOPIDOGREL 75 MG TAB PO SCH (10:05)
[2017-05-31] MEDS: PANTOPRAZOLE SOD 40 MG DELAYED RELEASE TAB PO SCH (10:05)
[2017-05-31] MEDS: DIGOXIN 0.125 MG TAB PO SCH (10:05)
[2017-05-31] MEDS: PIPERACIL-TAZO 4.5 GM PREMIX 100 ML IV SCH ×4 (10:10→22:08)
[2017-05-31] MEDS: MAGNESIUM OXIDE 400 MG TAB PO SCH (10:10)
[2017-05-31] MEDS: SODIUM CHLORIDE 0.9% FLUSH 10 ML FLUSH IV FLUSH SCH ×2 (10:10→22:08)
[2017-05-31] MEDS ORDERED: PHARMACY ORDERED LAB ONE (11:45)
--- NOTE | 2017-05-31 19:08 | RADRPT ---
EXAM DATE/TIME: 05/31/2017 18:33 [facility] COMPARISON: No previous studies available for comparison. INDICATIONS : Right arm swelling. MEDICAL HISTORY : Stroke. Congestive heart failure. Hypertension. Glasses. Coronary artery disease. COPD. Hiatal hernia . Gastroesophageal reflux disease. Hyperlipidemia. SURGICAL HISTORY : CABG Pacemaker. Appendectomy. Cholecystectomy. ENCOUNTER: Initial ACUITY: 1 day PAIN SCORE: 0/10 LOCATION: Right arm. FINDINGS: There is spontaneous flow documented in the brachial, basilic, cephalic, axillary, and subclavian vei ns. The vessels are compressible and augmentation response is documented. No filling defects are se en. The flow is phasic with respiration. Direction of flow in the jugular vein is caudal. CONCLUSION: Negative study. No venous thrombosis of the right upper chest remain. Devin Rocha MD on May 31, 2017 at 19:06 Board Certified Radiologist. This report was verified electronically.
[2017-05-31] MEDS: ATORVASTATIN 20 MG TAB PO SCH (22:08)
[2017-06-01] VITALS (8 sets, daily range): BP systolic 94–152; BP diastolic 55–80; PULSE 68–87; RESP 20; TEMP 97.4–98.1; O2SAT 88–100
[2017-06-01] MEDS: HEPARIN SODIUM - SQ 10,000 UNITS/ML VIAL SQ SCH (03:09)
[2017-06-01] MEDS: PIPERACIL-TAZO 4.5 GM PREMIX 100 ML IV SCH ×5 (03:10→22:00)
[2017-06-01 06:51] LABS: AUTOMATED NEUTROPHIL # 11.5 TH/MM3 (1.8-7.7); BASOPHIL # 0.1 TH/MM3 (0-0.2); BASOPHIL % 0.9 % (0.0-2.0); EOSINOPHIL # 0.1 TH/MM3 (0-0.4); EOSINOPHIL % 0.6 % (0.0-4.0); HEMATOCRIT 33.8 % (35.0-46.0); HEMOGLOBIN 10.7 GM/DL (11.6-15.3); LYMPH % 7.3 % (9.0-44.0); MEAN CELL VOLUME 92.6 FL (80.0-100.0); MEAN CORPUSCULAR HEMOGLOBIN 29.4 PG (27.0-34.0); MEAN CORPUSCULAR HGB CONC 31.8 % (32.0-36.0); MONO % 5.3 % (0.0-8.0); MONOCYTE # 0.7 TH/MM3 (0-0.9); NEUT % 85.9 % (16.0-70.0); PLATELET COUNT 219 TH/MM3 (150-450); RED BLOOD COUNT 3.65 MIL/MM3 (4.00-5.30); RED CELL DISTRIBUTION WIDTH 15.2 % (11.6-17.2); WHITE BLOOD COUNT 13.4 TH/MM3 (4.0-11.0)
[2017-06-01 07:14] LABS: BICARBONATE 27.4 MEQ/L (21.0-32.0); CALCIUM 8.3 MG/DL (8.5-10.1); CREATININE 0.45 MG/DL (0.50-1.00); MAGNESIUM 1.7 MG/DL (1.5-2.5)
[2017-06-01] MEDS: DOCUSATE SODIUM 50 MG/SENNA 8.6 MG TAB PO SCH ×2 (09:00→21:00)
[2017-06-01] MEDS: RESP: ALBUTEROL 2.5 MG/IPRATROPIUM 0.5 MG NEB (SCH) NEB ×3 (09:44→20:27)
[2017-06-01] MEDS: CARVEDILOL 6.25 MG TAB PO SCH ×2 (09:46→23:02)
[2017-06-01] MEDS: SODIUM CHLORIDE 0.9% FLUSH 10 ML FLUSH IV FLUSH SCH ×2 (09:46→21:00)
[2017-06-01] MEDS: DIGOXIN 0.125 MG TAB PO SCH (09:46)
[2017-06-01] MEDS: MAGNESIUM OXIDE 400 MG TAB PO SCH (09:46)
[2017-06-01] MEDS: PANTOPRAZOLE SOD 40 MG DELAYED RELEASE TAB PO SCH (09:47)
[2017-06-01] MEDS: CLOPIDOGREL 75 MG TAB PO SCH (09:47)
[2017-06-01] MEDS ORDERED: RESP: ALBUTEROL 2.5 MG/IPRATROPIUM 0.5 MG NEB (PRN) NEB (10:15)
[2017-06-01] MEDS ORDERED: methylPREDNISolone SOD SUCC 125 MG/2 ML VIAL IV PUSH ONE (10:45)
[2017-06-01] MEDS ORDERED: RESP: ALBUTEROL 2.5 MG/IPRATROPIUM 0.5 MG NEB (SCH) NEB ONE (10:45)
[2017-06-01 11:46] LABS: BACTERIA, URINE MOD /hpf; BILIRUBIN, URINE NEG (NEG); BLOOD, URINE MOD (NEG); GLUCOSE,URINE NEG (NEG); KETONE, URINE TRACE mg/dL (NEG); NITRITE,URINE NEG (NEG); PH, URINE 6.5 (5.0-8.5); URINE COLOR YELLOW (YELLW/STRAW); URINE LEUKOCYTE ESTERASE NEG (NEG)
[2017-06-01] MEDS: VANCOMYCIN INJ 1,000 MG in SODIUM CHLOR 0.9% 250 ML INJ 250 ML IV SCH ×4 (12:01→23:02)
[2017-06-01] MEDS: methylPREDNISolone SOD SUCC 40 MG/1 ML VIAL IV PUSH SCH ×2 (18:06→23:01)
[2017-06-01] MEDS: ATORVASTATIN 20 MG TAB PO SCH (23:02)
[2017-06-02] VITALS (9 sets, daily range): BP systolic 116–139; BP diastolic 55–72; PULSE 60–85; RESP 18–22; TEMP 97.4–98.2; O2SAT 89–96
[2017-06-02] MEDS: PIPERACIL-TAZO 4.5 GM PREMIX 100 ML IV SCH ×4 (03:59→20:34)
[2017-06-02] MEDS: methylPREDNISolone SOD SUCC 40 MG/1 ML VIAL IV PUSH SCH ×4 (05:04→23:34)
[2017-06-02] MEDS: RESP: ALBUTEROL 2.5 MG/IPRATROPIUM 0.5 MG NEB (SCH) NEB ×4 (07:56→20:09)
[2017-06-02] MEDS: SODIUM CHLORIDE 0.9% FLUSH 10 ML FLUSH IV FLUSH SCH ×2 (08:18→20:34)
[2017-06-02] MEDS: DOCUSATE SODIUM 50 MG/SENNA 8.6 MG TAB PO SCH ×2 (08:19→20:34)
[2017-06-02] MEDS: CARVEDILOL 6.25 MG TAB PO SCH ×2 (08:19→20:34)
[2017-06-02] MEDS: MAGNESIUM OXIDE 400 MG TAB PO SCH (08:20)
[2017-06-02] MEDS: PANTOPRAZOLE SOD 40 MG DELAYED RELEASE TAB PO SCH (08:20)
[2017-06-02] MEDS: DIGOXIN 0.125 MG TAB PO SCH (08:20)
[2017-06-02] MEDS: CLOPIDOGREL 75 MG TAB PO SCH (08:20)
--- NOTE | 2017-06-02 08:40 | HHI.PR ---
Subjective Remarks Late entry: The patient was seen morning 06/01/17 Patient in bed, appears in distress, wheezing, with sob, chronically ill. Patient follows some commands. Feesl very tires and sick, not able to talk much she has aphasia at baseline from previous stroke. Also noted with hematuria. Patient with coughing and congestion however says not coughing too much as she is very tired. No fever or chills. Objective Vitals Vital Signs Date Time Temp Pulse Resp B/P (MAP) Pulse Ox O2 Delivery O2 Flow Rate FiO2 06/02/17 07:56 96 Nasal Cannula 4.00 06/02/17 07:00 Nasal Cannula 4.00 80 06/02/17 04:00 60 06/02/17 04:00 97.7 75 22 138/72 (94) 96 06/02/17 00:00 60 06/02/17 00:00 97.7 67 20 116/60 (78) 96 06/01/17 20:00 98.1 87 20 152/80 (104) 100 06/01/17 20:00 78 06/01/17 18:15 Nasal Cannula 4.00 06/01/17 16:10 96 Nasal Cannula 4.00 06/01/17 16:00 68 06/01/17 16:00 98.1 75 20 109/59 (76) 88 06/01/17 15:40 Nasal Cannula 4.00 06/01/17 14:00 Nasal Cannula 2.00 06/01/17 12:00 98.1 75 20 109/56 (73) 92 06/01/17 12:00 75 06/01/17 09:45 94 Nasal Cannula 2.00 06/01/17 09:00 Nasal Cannula 2.00 I/O 06/01/17 06/01/17 06/01/17 06/02/17 06/02/17 06/02/17 07:00 15:00 23:00 07:00 15:00 23:00 Intake Total 250 ml 350 ml Output Total 251 ml 350 ml Balance -1 ml 0 ml Intake Oral 0 ml IV Total 250 ml 350 ml Output Urine Total 250 ml 350 ml Stool Total 1 ml # Bowel Movements 1 Result Diagram: 06/01/17 0510 06/01/17 0510 Imaging Last Impressions Upper Extremity Ultrasound 05/31/17 0000 Signed Impressions: Service Date/Time: Wednesday, May 31, 2017 18:33 - CONCLUSION: Negative study. No venous thrombosis of the right upper chest remain. Devin Rocha MD Chest X-Ray 05/29/172152 Signed Impressions: Service Date/Time: May 21:58 - CONCLUSION: 1. Perihilar and bibasilar opacities most characteristic of pulmonary edema. 2. Small pleural effusions. Filippo Jung MD Lung Scan-V Nuclear Medicine 05/29/17 0000 Signed Impressions: Service Date/Time: May 23:57 - CONCLUSION: Low probability scan for pulmonary embolism Devin Castro MD Objective Remarks GENERAL: 62 yo female, in bed chronically ill, in respiratory distress with sob and wheezing, with bloody urine in brock. SKIN: Warm and dry. HEAD: Bitemporal waisting. Atraumatic. Normocephalic. EYES: Pupils equal and round. No scleral icterus. No injection or drainage. ENT: No nasal bleeding or discharge. Mucous membranes pink and moist. NECK: Trachea midline. No JVD. CARDIOVASCULAR: Regular rate and rhythm. RESPIRATORY: In respiratory distress with wheezing and sob. Decreased breath sounds. GASTROINTESTINAL: Abdomen soft, non-tender, nondistended. Hepatic and splenic margins not palpable. MUSCULOSKELETAL: Right arm edema, elevated. Extremities without clubbing, cyanosis. No obvious deformities. NEUROLOGICAL: Lethargic, opens eyes to voice and answers some questions, does not follow commands. Slurred speech at baseline from previous CVA, also right sided paralysis from previous stroke. PSYCHIATRIC: Flat affect A/P Assessment and Plan Healthcare associated pneumonia Severe sepsis on admission Acute respiratory failure COPD now with exacerbation Patient with leukocytosis, tachycardia, hypoxia and hypotension on admission ABG 7.39/44/81/26 Chest x-ray significant for perihilar and bibasilar opacities, personally reviewed Vancomycin/Zosyn BiPAP - wean as tolerated NS bolus for Hypotension. Monitor closely VS. BP is better controlled. Cont IVF Give solumedrol 125 x1 then start scheduled Solumedrol and taper as tolerated Add duonebs scheduled and as need Hematuria with h/o HIT. Check UA. will consult urology. Right arm edema. R/o DVT. Doppler US ordered and reviewed no DVT. Keep ar elevated, apply compresses. History of CVA with right sided deficit Continue home Plavix Physical therapy consulted CAD/CHF Continue home digoxin, carvedilol Hyperlipidemia Continue home statin Heart healthy diet Electrolytes: monitor and replete prn Discussed with the patient. nurse Patient with severe sepsis and now with acute exacerbation of COPD, hematuria Tamara Santiago MD Jun 02, 2017 08:40
--- NOTE | 2017-06-02 08:40 | HHI.PR ---
Subjective Remarks In bed appears sob, tired and chronically ill. More awake and alert answering some questions. No n/v/d/c. Denies chest pain or sob. No fever or chills. No n/ v/d/c. Objective Vitals Vital Signs Date Time Temp Pulse Resp B/P (MAP) Pulse Ox O2 Delivery O2 Flow Rate FiO2 06/02/17 07:56 96 Nasal Cannula 4.00 06/02/17 07:00 Nasal Cannula 4.00 80 06/02/17 04:00 60 06/02/17 04:00 97.7 75 22 138/72 (94) 96 06/02/17 00:00 60 06/02/17 00:00 97.7 67 20 116/60 (78) 96 06/01/17 20:00 98.1 87 20 152/80 (104) 100 06/01/17 20:00 78 06/01/17 18:15 Nasal Cannula 4.00 06/01/17 16:10 96 Nasal Cannula 4.00 06/01/17 16:00 68 06/01/17 16:00 98.1 75 20 109/59 (76) 88 06/01/17 15:40 Nasal Cannula 4.00 06/01/17 14:00 Nasal Cannula 2.00 06/01/17 12:00 98.1 75 20 109/56 (73) 92 06/01/17 12:00 75 06/01/17 09:45 94 Nasal Cannula 2.00 06/01/17 09:00 Nasal Cannula 2.00 I/O 06/01/17 06/01/17 06/01/17 06/02/17 06/02/17 06/02/17 07:00 15:00 23:00 07:00 15:00 23:00 Intake Total 250 ml 350 ml Output Total 251 ml 350 ml Balance -1 ml 0 ml Intake Oral 0 ml IV Total 250 ml 350 ml Output Urine Total 250 ml 350 ml Stool Total 1 ml # Bowel Movements 1 Result Diagram: 06/01/17 0510 06/01/17 0510 Imaging Last Impressions Upper Extremity Ultrasound 05/31/17 0000 Signed Impressions: Service Date/Time: Wednesday, May 31, 2017 18:33 - CONCLUSION: Negative study. No venous thrombosis of the right upper chest remain. Devin Rocha MD Chest X-Ray 05/29/17 1260 Signed Impressions: Service Date/Time: May 21:58 - CONCLUSION: 1. Perihilar and bibasilar opacities most characteristic of pulmonary edema. 2. Small pleural effusions. Filippo Jung MD Lung Scan-VQ Nuclear Medicine 05/29/17 0000 Signed Impressions: Service Date/Time: May 23:57 - CONCLUSION: Low probability scan for pulmonary embolism Devin Castro MD Objective Remarks GENERAL: 62 yo female, in bed chronically ill, with bloody urine in brock. SKIN: Warm and dry. HEAD: Bitemporal waisting. Atraumatic. Normocephalic. EYES: Pupils equal and round. No scleral icterus. No injection or drainage. ENT: No nasal bleeding or discharge. Mucous membranes pink and moist. NECK: Trachea midline. No JVD. CARDIOVASCULAR: Regular rate and rhythm. RESPIRATORY: Decreased breath sounds, with sob. Scattered wheezing improved. GASTROINTESTINAL: Abdomen soft, non-tender, nondistended. Hepatic and splenic margins not palpable. MUSCULOSKELETAL: Right arm edema, elevated. Extremities without clubbing, cyanosis. No obvious deformities. NEUROLOGICAL: More awake and alert answering some questions. Follows some commands. Slurred speech at baseline from previous CVA, also right sided paralysis from previous stroke, right foot drop. A/P Assessment and Plan Healthcare associated pneumonia Severe sepsis on admission Acute respiratory failure COPD now with exacerbation Patient with leukocytosis, tachycardia, hypoxia and hypotension on admission ABG 7.39/44/81/26 Chest x-ray significant for perihilar and bibasilar opacities, personally reviewed Vancomycin/Zosyn BiPAP as need NS bolus for Hypotension. Monitor closely VS. BP is better controlled. Cont IVF Solumedrol 125 x1, continue scheduled Solumedrol and taper as tolerated Duonebs scheduled and as need Anemia drop 2U in HGB , anemia is 2/2 blood loss from hematuria. Urology consulted. Monitor HGB and transfuse if need. Hematuria UA with contaminant. Consult urology appreciate recommendations. Right arm edema. R/o DVT. Doppler US ordered and reviewed no DVT. Keep ar elevated, apply compresses. History of CVA with right sided deficit Continue home Plavix Physical therapy consulted CAD/CHF Continue home digoxin, carvedilol Hyperlipidemia Continue home statin Heart healthy diet Electrolytes: monitor and replete prn Discussed with the patient. nurse Patient with severe sepsis and now with acute exacerbation of COPD, hematuria Discussed with palliative care patient is DNR also brother is POA will obtain docs. CODE STATUS: DNR Tamara Santiago MD Jun 02, 2017 08:40
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
[2017-06-02] MEDS ORDERED: PHARMACY ORDERED LAB ONE (11:45)
[2017-06-02] MEDS: VANCOMYCIN INJ 1,000 MG in SODIUM CHLOR 0.9% 250 ML INJ 250 ML IV SCH ×2 (12:57→23:42)
--- NOTE | 2017-06-02 13:40 | PD.CONS ---
[facility] Service Urology Consult Requested By Dr Santiago Reason for Consult Hematuria Primary Care Physician Unknown Diagnosis: (1) Hematuria ICD Code: R31.9 - Hematuria, unspecified History of Present Illness 62-year-old female, aphasic with a past medical history significant for hypertension, COPD, CHF (no recent echo for comparison), history of CVA with residual right-sided hemiparesis and CAD presented to the emergency department from [facility] facility on 05/30/17 for the evaluation of weakness and difficulty breathing. She is On BiPAP. Had leukocytosis on admission, which is now improving and hypoxia. Diagnosed with sepsis. She is with brock catheter. Has h/o HIT and now recently developed hematuria. Urology consulted. Her Cr is normal. UC is pending, no growth in 24hrs Review of Systems Except as stated in HPI: all other systems reviewed are Neg Past Family Social History Past Medical History Hypertension, HIT, COPD, CHF (no recent echo for comparison), history of CVA with residual right-sided hemiparesis and CAD, obtained from other notes Past Surgical History no surgical history available Allergies: Coded Allergies: adhesive (Unverified Allergy, Severe, 05/29/17) aspirin (Unverified Allergy, Severe, 05/29/17) diatrizoate meglumine (Unverified Allergy, Severe, Hives, 05/29/17) enoxaparin (Unverified Allergy, Severe, 05/29/17) HIT POSITIVE gadobenic acid (Unverified Allergy, Severe, Hives, 05/29/17) gadodiamide (Unverified Allergy, Severe, Hives, 05/29/17) gadoteridol (Unverified Allergy, Severe, Hives, 05/29/17) heparin (porcine) (Unverified Allergy, Severe, 05/29/17) HIT POSITIVE iodine (Unverified Allergy, Severe, 05/29/17) iodixanol (Unverified Allergy, Severe, Hives, 05/29/17) iohexol (Unverified Allergy, Severe, Hives, 05/29/17) sodium iodide (Unverified Allergy, Severe, 05/29/17) sodium iodide (Unverified Allergy, Severe, 05/29/17) sulfamethoxazole (Unverified Allergy, Severe, 05/29/17) trimethoprim (Unverified Allergy, Severe, 05/29/17) Family History not available Social History none Physical Exam Vital Signs Date Time Temp Pulse Resp B/P (MAP) Pulse Ox O2 Delivery O2 Flow Rate FiO2 06/02/17 12:00 83 06/02/17 08:00 97.4 82 18 139/63 (88) 89 06/02/17 08:00 60 06/02/17 07:56 96 Nasal Cannula 4.00 06/02/17 07:00 Nasal Cannula 4.00 80 06/02/17 04:00 60 06/02/17 04:00 97.7 75 22 138/72 (94) 96 06/02/17 00:00 60 06/02/17 00:00 97.7 67 20 116/60 (78) 96 06/01/17 20:00 98.1 87 20 152/80 (104) 100 06/01/17 20:00 78 06/01/17 18:15 Nasal Cannula 4.00 06/01/17 16:10 96 Nasal Cannula 4.00 06/01/17 16:00 68 06/01/17 16:00 98.1 75 20 109/59 (76) 88 06/01/17 15:40 Nasal Cannula 4.00 06/01/17 14:00 Nasal Cannula 2.00 Physical Exam GENERAL: This is a well-nourished, well-developed patient, in no apparent distress. Aphasic CARDIOVASCULAR: Regular rate and rhythm without murmurs, gallops, or rubs. RESPIRATORY: Decreased breath sounds, wheezing GASTROINTESTINAL: Abdomen soft GENITOURINARY:Bladder not distended. Brock is in place NEUROLOGICAL: Awake and calm Lab results reviewed: Yes Laboratory Tests Test 06/02/17 11:53 Vancomycin Level Trough 16.6 Date/Time Source Procedure Growth Status 05/30/17 01:15 Blood Peripheral Aerobic Blood Culture - Preliminary NO GROWTH IN 3 DAYS Resulted 05/30/17 01:15 Blood Peripheral Anaerobic Blood Culture - Preliminary NO GROWTH IN 3 DAYS Resulted 06/01/17 10:45 Urine Clean Catch Urine Culture - Preliminary NO GROWTH IN 24 HOURS. Resulted Result Diagram: 06/01/17 0510 06/01/17 0510 Imaging Last Impressions Upper Extremity Ultrasound 05/31/17 0000 Signed Impressions: Service Date/Time: Wednesday, May 31, 2017 18:33 - CONCLUSION: Negative study. No venous thrombosis of the right upper chest remain. Devin Rocha MD Chest X-Ray 05/29/17 2153 Signed Impressions: Service Date/Time: May 21:58 - CONCLUSION: 1. Perihilar and bibasilar opacities most characteristic of pulmonary edema. 2. Small pleural effusions. Filippo Jung MD Lung Scan-V Nuclear Medicine 05/29/17 0000 Signed Impressions: Service Date/Time: May 23:57 - CONCLUSION: Low probability scan for pulmonary embolism Devin Castro MD Assessment and Plan Assessment and Plan 62 y.o. F with multiple medical issues, admitted for respiratory distress and sepsis. Also has h/o HIT Urology consulted for hematuria No acute intervention needed Continue management as per primary team. Follow up on final results of UC Based on evaluation, hematuria is resolving and now urine color is very light brown. No active bleeding Labs and VS are stable Most likely cause of it is HIT but if hematuria reoccur she will need CT Urogram Urology remains available as needed Discussed Condition With Dr Khris REDMAN attending who agrees with this plan Problem Qualifiers (1) Hematuria: Qualified Codes: R31.9 - Hematuria, unspecified Manuel Roque Jun 02, 2017 13:40
[2017-06-02] MEDS: ATORVASTATIN 20 MG TAB PO SCH (20:34)
[2017-06-02] MEDS: SODIUM CHLORIDE 0.9% FLUSH 10 ML FLUSH IV FLUSH PRN (23:34)
[2017-06-03] VITALS (12 sets, daily range): BP systolic 117–166; BP diastolic 61–78; PULSE 60–87; RESP 17–20; TEMP 97.4–98.3; O2SAT 91–98
[2017-06-03] MEDS: PIPERACIL-TAZO 4.5 GM PREMIX 100 ML IV SCH ×4 (03:25→20:48)
[2017-06-03] MEDS: methylPREDNISolone SOD SUCC 40 MG/1 ML VIAL IV PUSH SCH ×5 (04:56→23:14)
[2017-06-03] MEDS: SODIUM CHLORIDE 0.9% FLUSH 10 ML FLUSH IV FLUSH PRN (04:57)
[2017-06-03] MEDS: RESP: ALBUTEROL 2.5 MG/IPRATROPIUM 0.5 MG NEB (SCH) NEB ×4 (08:10→19:43)
--- NOTE | 2017-06-03 08:25 | HHI.PR ---
Subjective Remarks Noted tachypneic RR >35 and with labor breathing. With wheezing. Patient appears with sob and in some distress. Start ABG reviewed reassuring. patient denies cp. She feels sob and she feels very tired. No fever rochills. Coughing at times feels congested and can't cough much Objective Vitals Vital Signs Date Time Temp Pulse Resp B/P (MAP) Pulse Ox O2 Delivery O2 Flow Rate FiO2 06/03/17 08:11 98 Nasal Cannula 4.00 06/03/17 07:37 Nasal Cannula 4.00 06/03/17 03:48 97.4 72 20 138/73 (94) 96 06/03/17 03:48 Nasal Cannula 4.00 06/03/17 03:45 60 06/03/17 00:04 74 06/03/17 00:00 98.3 73 20 117/61 (79) 95 06/03/17 00:00 Nasal Cannula 4.00 06/02/17 20:11 96 Nasal Cannula 4.00 06/02/17 20:00 Nasal Cannula 4.00 06/02/17 20:00 98.2 75 20 127/55 (79) 96 06/02/17 16:00 98.2 76 18 134/65 (88) 90 06/02/17 16:00 85 06/02/17 15:44 95 Nasal Cannula 4.00 06/02/17 12:00 97.9 84 18 117/64 (81) 91 06/02/17 12:00 83 I/O 06/02/17 06/02/17 06/02/17 06/03/17 06/03/17 06/03/17 07:00 15:00 23:00 07:00 15:00 23:00 Intake Total 350 ml 800 ml 500 ml Output Total 350 ml 225 ml 200 ml Balance 0 ml 575 ml 300 ml Intake Oral 0 ml 600 ml 150 ml IV Total 350 ml 200 ml 350 ml Output Urine Total 350 ml 225 ml 200 ml # Bowel Movements 1 2 Result Diagram: 06/01/17 0510 06/01/17 0510 Imaging Last Impressions Chest X-Ray 06/03/17 0000 Signed Impressions: Service Date/Time: Saturday, June 03, 2017 08:29 - CONCLUSION: 1. Cardiomegaly with pulmonary edema pattern. 2. Small bilateral pleural effusions. Guzman Oakley MD Upper Extremity Ultrasound 05/31/17 0000 Signed Impressions: Service Date/Time: Wednesday, May 31, 2017 18:33 - CONCLUSION: Negative study. No venous thrombosis of the right upper chest remain. Devin Rocha MD Lung Scan-VQ Nuclear Medicine 05/29/17 0000 Signed Impressions: Service Date/Time: May 23:57 - CONCLUSION: Low probability scan for pulmonary embolism Devin Castro MD Objective Remarks GENERAL: 62 yo female, in bed chronically ill, brock with clearing urine SKIN: Warm and dry. HEAD: Bitemporal waisting. Atraumatic. Normocephalic. EYES: Pupils equal and round. No scleral icterus. No injection or drainage. ENT: No nasal bleeding or discharge. Mucous membranes pink and moist. NECK: Trachea midline. No JVD. CARDIOVASCULAR: Regular rate and rhythm. RESPIRATORY: Decreased breath sounds, with sob. Scattered wheezing. Bibasilar crackles. GASTROINTESTINAL: Abdomen soft, non-tender, nondistended. Hepatic and splenic margins not palpable. MUSCULOSKELETAL: Right arm edema resolved. Extremities without clubbing, cyanosis. No obvious deformities. NEUROLOGICAL: Awake and alert. Follows some commands. Slurred speech at baseline from previous CVA, also right sided paralysis from previous stroke, right foot drop. A/P Problem List: (1) Hematuria ICD Code: R31.9 - Hematuria, unspecified Assessment and Plan Healthcare associated pneumonia Severe sepsis on admission Acute respiratory failure COPD now with exacerbation Pulmonary congestion, small BL pleural effusions Patient with leukocytosis, tachycardia, hypoxia and hypotension on admission ABG 7.39/44/81/26 on admission Repeat ABG 06/03 as patient with sob and with labored breathing, RR of > 35 using some resp accessory muscle, ABG reviewed and reassuring. Repeat Chest x-ray 06/03 reviewed with pulm congestion and small pleural effusions. Give one dose lasix 20 mg IV and monitor closely BP. Give one dose of Solumedrol IV and duonebs. Check BNP. Will do 2D ECHO. Continue Vancomycin/Zosyn IV abx BiPAP as need Received NS bolus for Hypotension on admission and was on fluids. Now eating better. Stop fluids. Monitor closely VS. BP is better controlled. On Solumedrol, taper as tolerated Duonebs scheduled and as need Consult pulm if need Anemia drop 2U in HGB , anemia is 2/2 blood loss from hematuria. Urology consulted. Monitor HGB and transfuse if need. H/H stable . Urine is clearing up Hematuria UA with contaminant. Consult urology appreciate recommendations. Right arm edema. Resolved . Doppler US ordered and reviewed no DVT. Keep arm elevated, apply compresses. History of CVA with right sided deficit Continue home Plavix Physical therapy consulted CAD CHF now with exacerbation Continue home digoxin, carvedilol Will check BNP elavated as noted with pleural effusions. will do 2D ECHO. Received one dose of lasix IV 20 mg one time. Monitor closely kidney fx and BP as patient was hypotensive 2/2 sepsis Hyperlipidemia Continue home statin Heart healthy diet Electrolytes: monitor and replete prn Discussed with the patient. nurse Patient with severe sepsis and now with acute exacerbation of COPD, hematuria Discussed with palliative care patient is DNR also brother is POA will obtain docs. CODE STATUS: DNR Patient with acute respiratory failure not ready for DC Problem Qualifiers (1) Hematuria: Qualified Codes: R31.9 - Hematuria, unspecified Tamara Santiago MD Jun 03, 2017 08:25
--- NOTE | 2017-06-03 08:52 | RADRPT ---
EXAM DATE/TIME: 06/03/2017 08:29 [facility] COMPARISON: CHEST SINGLE AP, May 29, 2017, 21:58. INDICATIONS : Short of breath. MEDICAL HISTORY : Stroke. Congestive heart failure. Hypertension. Glasses. Coronary artery disease.COPD. Hiatal hernia. Gastroesophageal reflux disease. Hyperlipidemia. SURGICAL HISTORY : CABG Pacemaker. Appendectomy. Cholecystectomy. ENCOUNTER: Subsequent ACUITY: 4 - 6 days PAIN SCORE: 0/10 LOCATION: Bilateral chest FINDINGS: Redemonstration of bilateral lower lobe perihilar patchy airspace disease with associated small bilat eral pleural effusions. Persistent diffuse interstitial prominence and indistinct pulmonary vasculatu re. Cardiac fluid is enlarged with stable multilead AICD device in place. Remainder of the exam is un changed. CONCLUSION: 1. Cardiomegaly with pulmonary edema pattern. 2. Small bilateral pleural effusions. Guzman Oakley MD on June 03, 2017 at 8:47 Board Certified Radiologist. This report was verified electronically.
[2017-06-03] MEDS: DOCUSATE SODIUM 50 MG/SENNA 8.6 MG TAB PO SCH ×2 (09:00→20:48)
[2017-06-03] MEDS: PANTOPRAZOLE SOD 40 MG DELAYED RELEASE TAB PO SCH (09:35)
[2017-06-03] MEDS: CARVEDILOL 6.25 MG TAB PO SCH ×2 (09:35→20:48)
[2017-06-03] MEDS: CLOPIDOGREL 75 MG TAB PO SCH (09:35)
[2017-06-03] MEDS: DIGOXIN 0.125 MG TAB PO SCH (09:35)
[2017-06-03] MEDS: SODIUM CHLORIDE 0.9% FLUSH 10 ML FLUSH IV FLUSH SCH ×2 (09:42→23:14)
[2017-06-03] MEDS ORDERED: methylPREDNISolone SOD SUCC 40 MG/1 ML VIAL IV PUSH ONE (09:45)
[2017-06-03] MEDS ORDERED: FUROSEMIDE 20 MG/2 ML VIAL IV PUSH ONE (09:45)
[2017-06-03] MEDS ORDERED: POTASSIUM CHLORIDE 10 MEQ CONTROLLED RELEASE TAB PO ONE (09:45)
[2017-06-03 09:52] LABS: AUTOMATED NEUTROPHIL # 13.1 TH/MM3 (1.8-7.7); BASOPHIL # 0.1 TH/MM3 (0-0.2); BASOPHIL % 0.5 % (0.0-2.0); HEMATOCRIT 35.3 % (35.0-46.0); LYMPH % 4.4 % (9.0-44.0); LYMPHOCYTE # 0.6 TH/MM3 (1.0-4.8); MEAN CELL VOLUME 90.9 FL (80.0-100.0); MEAN CORPUSCULAR HGB CONC 34.1 % (32.0-36.0); MEAN PLATELET VOLUME 8.1 FL (7.0-11.0); MONOCYTE # 0.3 TH/MM3 (0-0.9); NEUT % 93.1 % (16.0-70.0); PLATELET COUNT 330 TH/MM3 (150-450); RED BLOOD COUNT 3.88 MIL/MM3 (4.00-5.30); RED CELL DISTRIBUTION WIDTH 15.2 % (11.6-17.2); WHITE BLOOD COUNT 14.1 TH/MM3 (4.0-11.0)
[2017-06-03 10:09] LABS: AST (GOT) 18 U/L (15-37); BICARBONATE 25.3 MEQ/L (21.0-32.0); BLOOD UREA NITROGEN 19 MG/DL (7-18); CALCIUM 8.7 MG/DL (8.5-10.1); CHLORIDE 112 MEQ/L (98-107); GLOMERULAR FILTRATION RATE 124 ML/MIN (>89); GLUCOSE,RANDOM 117 MG/DL (74-106); SODIUM (NA) 146 MEQ/L (136-145)
[2017-06-03 10:10] LABS: ALT (GPT) 14 U/L (10-53)
[2017-06-03 10:12] LABS: ALKALINE PHOSPHATASE 73 U/L (45-117); TOTAL BILIRUBIN ADULT 0.2 MG/DL (0.2-1.0)
[2017-06-03 12:25] LABS: LACTIC ACID SEPSIS PROTOCOL 2.2 mmol/L (0.4-2.0)
[2017-06-03] MEDS: VANCOMYCIN INJ 1,000 MG in SODIUM CHLOR 0.9% 250 ML INJ 250 ML IV SCH ×2 (12:55→23:14)
--- NOTE | 2017-06-03 13:28 | HHI.HCPN ---
Reason for visit a. To assist with evaluation and management of symptoms including: Shortness of breath, debility b. To assist medical decision maker(s) with: better understanding of current medical conditions; weighing benefits/burdens of medical treatment options; making medical treatment decisions. Subjective/Interval History Follow up medically necessary for symptom management and further discuss goals of care. Patient seen and examined in her room. Report form bedside RN who reports that patient was tachypneic and had auditory wheezing this morning with increased work of breathing. Chest x-ray today revealed cardiomegaly with pulmonary edema pattern and small bilateral pleural effusions. Respiratory distress managed with 20 mg furosemide IVP, Solu-Medrol 40 mg IVP and DuoNeb treatment. Patient is currently awake, alert in no respiratory distress. She is on 4 L nasal cannula with O2 saturation ranging in the mid to high 90s. Denies shortness of breath and pain. Patient remains aphasic, communicates by nodding head for "yes" and shaking head for "no" and occasionally is able to say "yes" or "no". Bedside RN, just completed changing Morton catheter due to leakage around Morton. Urine clear. Patient seen on 06/02 by urology YOMI Trujillo for hematuria, who recommended to CT urogram if patient has hematuria again. Laboratory workup today revealing sodium 146, potassium 3.6, BUN/creatinine 19/ 0.50, lactic acid 2.2, BNP 496, total protein 6.0 and albumin 2.0 Updated patient on telephone conversation with him brother Ilir Corado ([facility]) yesterday. Discussed community DNR with patient and explained to her what it means. Notified patient that telephone call will be placed to patient's brother Ilir to explain to him more regarding [facility] DNR and request him to assist with signing. Patient nodded her head in a way that appears she is in agreement with plan. Telephone call placed to patient`s brother Ilir [phone], unfortunately he was not available, left message for him to call back. . Family/friend interactions I attempted to contact patient's Brother Ilir [facility]-to discuss [facility] DNR and update him on patient's current medical status. . Advance Directives Health Care Surrogate: Copy in medical record Durable Power of Dwarf Tree Grower: Completed, but not made available Advance Directive Specifics Date completed: 06/03/2017 . Health Care Surrogate(s): Healthcare surrogate Brother-Ilir Lam [phone] / [phone] cell (Self named Durable Power of assistant county attorney-requested copies) .- Objective Vital Signs Date Time Temp Pulse Resp B/P (MAP) Pulse Ox O2 Delivery O2 Flow Rate FiO2 06/03/17 08:11 98 Nasal Cannula 4.00 06/03/17 07:37 Nasal Cannula 4.00 06/03/17 03:48 97.4 72 20 138/73 (94) 96 06/03/17 03:48 Nasal Cannula 4.00 06/03/17 03:45 60 06/03/17 00:04 74 06/03/17 00:00 98.3 73 20 117/61 (79) 95 06/03/17 00:00 Nasal Cannula 4.00 06/02/17 20:11 96 Nasal Cannula 4.00 06/02/17 20:00 Nasal Cannula 4.00 06/02/17 20:00 98.2 75 20 127/55 (79) 96 06/02/17 16:00 98.2 76 18 134/65 (88) 90 06/02/17 16:00 85 06/02/17 15:44 95 Nasal Cannula 4.00 Intake & Output 06/03/17 06/03/17 07:00 19:00 Intake Total 600 ml Output Total 200 ml Balance 400 ml Intake Oral 150 ml IV Total 450 ml Output Urine Total 200 ml Physical Exam CONSTITUTIONAL/GENERAL: This is a thin patient, in no apparent distress. TUBES/LINES/DRAINS: PIV, FC, NC SKIN: No jaundice, rashes, or lesions. Ecchymoses on upper extremities. No wounds seen anteriorly. skin temperature appropriate. Not diaphoretic. HEAD: Atraumatic. Normocephalic. EYES: Pupils equal and round and reactive. Extraocular motions intact. No scleral icterus. No injection or drainage. Fundi not examined. ENT: Hearing grossly normal. Nose without bleeding or purulent drainage. Dry oral mucosa NECK: Trachea midline. Supple, nontender. CARDIOVASCULAR: Regular rate and rhythm without murmurs, gallops, or rubs. No JVD. Peripheral pulses symmetric. RESPIRATORY/CHEST: Symmetric, unlabored respirations. Clear to auscultation. breath sounds equal bilaterally. No wheezing, rhonchi and rales GASTROINTESTINAL: Abdomen soft, non-tender, nondistended. No guarding. Bowel sounds present. GENITOURINARY: Without palpable bladder distension. Morton catheter in place with clear yellow urine. MUSCULOSKELETAL: Extremities without clubbing, cyanosis, or edema. Some contracture to right hand and foot drop to RLE No mottling or clubbing. NEUROLOGICAL: Awake and alert, with expressive aphasia.Motor and sensory grossly within normal limits. Follows commands with LUE and LLE. Moves all extremities. PSYCHIATRIC: No obvious anxiety/depression. no apparent hallucinations or other psychotic thought process. Diagnostic Tests Laboratory Laboratory Tests Test 06/01/17 05:10 06/01/17 10:45 06/02/17 11:53 06/03/17 08:20 White Blood Count 13.4 TH/MM3 (4.0-11.0) Red Blood Count 3.65 MIL/MM3 (4.00-5.30) Hemoglobin 10.7 GM/DL (11.6-15.3) Hematocrit 33.8 % (35.0-46.0) Mean Corpuscular Volume 92.6 FL (80.0-100.0) Mean Corpuscular Hemoglobin 29.4 PG (27.0-34.0) Mean Corpuscular Hemoglobin Concent 31.8 % (32.0-36.0) Red Cell Distribution Width 15.2 % (11.6-17.2) Platelet Count 219 TH/MM3 (150-450) Mean Platelet Volume 9.0 FL (7.0-11.0) Neutrophils (%) (Auto) 85.9 % (16.0-70.0) Lymphocytes (%) (Auto) 7.3 % (9.0-44.0) Monocytes (%) (Auto) 5.3 % (0.0-8.0) Eosinophils (%) (Auto) 0.6 % (0.0-4.0) Basophils (%) (Auto) 0.9 % (0.0-2.0) Neutrophils # (Auto) 11.5 TH/MM3 (1.8-7.7) Lymphocytes # (Auto) 1.0 TH/MM3 (1.0-4.8) Monocytes # (Auto) 0.7 TH/MM3 (0-0.9) Eosinophils # (Auto) 0.1 TH/MM3 (0-0.4) Basophils # (Auto) 0.1 TH/MM3 (0-0.2) CBC Comment DIFF FINAL Differential Comment Blood Urea Nitrogen 19 MG/DL (7-18) Creatinine 0.45 MG/DL (0.50-1.00) Random Glucose 81 MG/DL (74-106) Calcium Level 8.3 MG/DL (8.5-10.1) Magnesium Level 1.7 MG/DL (1.5-2.5) Sodium Level 145 MEQ/L (136-145) Potassium Level 3.8 MEQ/L (3.5-5.1) Chloride Level 112 MEQ/L (98-107) Carbon Dioxide Level 27.4 MEQ/L (21.0-32.0) Anion Gap 6 MEQ/L (5-15) Estimat Glomerular Filtration Rate 140 ML/MIN (>89) Urine Color YELLOW (YELLW/STRAW) Urine Turbidity CLEAR (CLEAR) Urine pH 6.5 (5.0-8.5) Urine Specific [place] GREATER THAN 1.050 Urine Protein 30 mg/dL (NEG-TRACE) Urine Glucose (UA) NEG mg/dL (NEG) Urine Ketones TRACE mg/dL (NEG) Urine Occult Blood MOD (NEG) Urine Nitrite NEG (NEG) Urine Bilirubin NEG (NEG) Urine Urobilinogen 2.0 MG/DL (LESS THAN Urine Leukocyte Esterase NEG (NEG) Urine RBC /hpf (0-3) Urine WBC 14 /hpf (0-5) Urine Bacteria MOD /hpf (NONE) Microscopic Urinalysis Comment CULTURE INDICATED Vancomycin Level Trough 16.6 MCG/ML (5.0-10.0) Blood Gas Puncture Site LT RADIAL Blood Gas Patient Temperature 98.6 Blood Gas HCO3 27 mmol/L (22-26) Blood Gas Base Excess 3.2 mmol/L (-2-2) Blood Gas Oxygen Saturation 96 % (90-100) Arterial Blood pH 7.42 (7.380-7.420) Arterial Blood Partial Pressure CO2 43 mmHg (38-42) Arterial Blood Partial Pressure O2 88 mmHg (61-120) Arterial Blood Oxygen Content 16.1 Vol % (12.0-20.0) Arterial Blood Carboxyhemoglobin 1.1 % (0-4) Arterial Blood Methemoglobin 0.7 % (0-2) Blood Gas Hemoglobin 12.0 G/DL (12.0-16.0) Oxygen Delivery Device NASAL CANNULA Blood Gas Liter Flow 4 L/M Test 06/03/17 08:45 06/03/17 11:45 White Blood Count 14.1 TH/MM3 (4.0-11.0) Red Blood Count 3.88 MIL/MM3 (4.00-5.30) Hemoglobin 12.0 GM/DL (11.6-15.3) Hematocrit 35.3 % (35.0-46.0) Mean Corpuscular Volume 90.9 FL (80.0-100.0) Mean Corpuscular Hemoglobin 31.0 PG (27.0-34.0) Mean Corpuscular Hemoglobin Concent 34.1 % (32.0-36.0) Red Cell Distribution Width 15.2 % (11.6-17.2) Platelet Count 330 TH/MM3 (150-450) Mean Platelet Volume 8.1 FL (7.0-11.0) Neutrophils (%) (Auto) 93.1 % (16.0-70.0) Lymphocytes (%) (Auto) 4.4 % (9.0-44.0) Monocytes (%) (Auto) 2.0 % (0.0-8.0) Eosinophils (%) (Auto) 0.0 % (0.0-4.0) Basophils (%) (Auto) 0.5 % (0.0-2.0) Neutrophils # (Auto) 13.1 TH/MM3 (1.8-7.7) Lymphocytes # (Auto) 0.6 TH/MM3 (1.0-4.8) Monocytes # (Auto) 0.3 TH/MM3 (0-0.9) Eosinophils # (Auto) 0.0 TH/MM3 (0-0.4) Basophils # (Auto) 0.1 TH/MM3 (0-0.2) CBC Comment DIFF FINAL Differential Comment Blood Urea Nitrogen 19 MG/DL (7-18) Creatinine 0.50 MG/DL (0.50-1.00) Random Glucose 117 MG/DL (74-106) Total Protein 6.0 GM/DL (6.4-8.2) Albumin 2.0 GM/DL (3.4-5.0) Calcium Level 8.7 MG/DL (8.5-10.1) Alkaline Phosphatase 73 U/L (45-117) Aspartate Amino Transf (AST/SGOT) 18 U/L (15-37) Alanine Aminotransferase (ALT/SGPT) 14 U/L (10-53) Total Bilirubin 0.2 MG/DL (0.2-1.0) Sodium Level 146 MEQ/L (136-145) Potassium Level 3.6 MEQ/L (3.5-5.1) Chloride Level 112 MEQ/L (98-107) Carbon Dioxide Level 25.3 MEQ/L (21.0-32.0) Anion Gap 9 MEQ/L (5-15) Estimat Glomerular Filtration Rate 124 ML/MIN (>89) B-Type Natriuretic Peptide 496 PG/ML (0-100) Lactic Acid Level 2.2 mmol/L (0.4-2.0) Vancomycin Level Trough 19.3 MCG/ML (5.0-10.0) Result Diagram: 06/03/17 0845 06/03/17 0845 Microbiology Microbiology Date/Time Source Procedure Growth Status 06/01/17 10:45 Urine Clean Catch Urine Culture - Final NO GROWTH IN 48 HOURS. Complete Imaging Last 24 hours Impressions Chest X-Ray 06/03/17 0000 Signed Impressions: Service Date/Time: Saturday, June 03, 2017 08:29 - CONCLUSION: 1. Cardiomegaly with pulmonary edema pattern. 2. Small bilateral pleural effusions. Guzman Oakley MD Assessment and Plan Disease Oriented Problem List: (1) PNA (pneumonia) (2) COPD (chronic obstructive pulmonary disease) (3) CHF (congestive heart failure) (4) History of CVA (cerebrovascular accident) (5) Hyperlipidemia Symptom Scale: (1) Shortness of breath 0-10 Scale: Unable to quantify Comment: History of COPD. Came in with complaints of shortness of breath. Chest x-ray significant for perihilar and bibasilar opacities. . (2) Debility 0-10 Scale: Unable to quantify Comment: Progressive . Pertinent Non-Medical Issues Psychosocial:Patient was born and raised in [place]. Patient is . She had 3 children, 2 sons and 1 daughter. One of her sons` is and her other son is Saman and her daughter is Laury. Highest level of education is high school. 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 Spiritual:Patient is Protestant Legal:Patient has a DPOA (Pts brother is self named DPOA)-patient completed HCS Ethical issues impacting care:None identified at this time . Important Contacts Brother-Ilir Lam [phone] / [phone] cell Daughter-Dc Schaeffer [phone] Son-Dc Davison [phone] Daughter in law (was to patient`s son)- Tena Cespedes [phone] Mother- Rut Lam [phone]- . Prognosis Ms. 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 Patient is on Plavix. Patient presented to the ED on from an [facility] for further evaluation of weakness and difficulty in breathing for approximately 2 hours. Clinical course complicated with increased shortness of breath,persistent weakness and hematuria. With patient's ongoing comorbidities, debility, patient remains at high risk for further complications , deterioration and decline. . Code Status: No Code Plan PLAN: Legal decision maker: Patient has a history of CVA with aphasia and right sided hemiparesis, she is able to participate in decision making. Due to expressive aphasia, recommending shared decision making with her brother Ilir Lam whom she has designated as her health care surrogate Goals: Aggressive short of no code CODE STATUS: DNR/DNI SYMPTOMS: * Shortness of breath: Patient has history of COPD and came in with increased respiratory status. Chest x-ray revealed pneumonia. Patient was started on antibiotics, Solu-Medrol 40 mg every 6 hours, duo nebs every 4 hours and prn. Had respiratory distress today, managed with furosemide, Solu-Medrol and duo nebs. Currently on 4L nasal cannula with O2 sats in the mid to high 90s. No signs of respiratory distress at this time. No recommendation * Debility: Patient has a history of CVA with aphasia and residual right-sided hemiparesis. Resides in a [facility]dc facility. Came in with complaints of generalized weakness. PT consulted recommended PT at Rehab. Speech therapy also consulted. Patient may benefit from occupational therapy. Palliative care will continue to follow the patient during hospital course as condition evolves, to assist patient/decision-maker with understanding of their medical conditions, weighing benefits/burdens of treatment options, for clarification of goals of treatment. Additionally will assist with any symptoms of palliative concern. . Attestation To help prompt me to consider important information that might be impacting today's encounter and assessment, information from prior notes written by myself or my colleagues may have been "brought forward" into today's note. My signature on this note, however, is an attestation that I personally performed the exam, history, and/or decision-making noted today, and, unless otherwise indicated, the interactions with patient, family, and staff as well as the review of records all occurred today. I also attest that the listed assessment and stated plan reflect my best clinical judgment today based on the combination of historical information, prior notes, and today's exam/ interactions. When time spent is documented, it refers only to time spent today by the signer, or if indicated, combined time spent today by collaborating physician/nurse practitioner. Flaco Mcbride Jun 03, 2017 13:28
[2017-06-03] MEDS: ATORVASTATIN 20 MG TAB PO SCH (20:52)
[2017-06-04] VITALS (12 sets, daily range): BP systolic 137–166; BP diastolic 68–96; PULSE 61–89; RESP 15–26; TEMP 97.3–98; O2SAT 94–99
[2017-06-04] MEDS: PIPERACIL-TAZO 4.5 GM PREMIX 100 ML IV SCH ×2 (03:18→08:44)
[2017-06-04] MEDS: methylPREDNISolone SOD SUCC 40 MG/1 ML VIAL IV PUSH SCH ×4 (05:35→21:36)
[2017-06-04 07:47] LABS: AUTOMATED NEUTROPHIL # 13.2 TH/MM3 (1.8-7.7); BASOPHIL # 0.1 TH/MM3 (0-0.2); BASOPHIL % 0.4 % (0.0-2.0); EOSINOPHIL % 0.1 % (0.0-4.0); HEMATOCRIT 37.4 % (35.0-46.0); HEMOGLOBIN 12.5 GM/DL (11.6-15.3); LYMPH % 4.1 % (9.0-44.0); LYMPHOCYTE # 0.6 TH/MM3 (1.0-4.8); MEAN CELL VOLUME 91.5 FL (80.0-100.0); MEAN CORPUSCULAR HEMOGLOBIN 30.6 PG (27.0-34.0); MEAN CORPUSCULAR HGB CONC 33.4 % (32.0-36.0); MEAN PLATELET VOLUME 8.1 FL (7.0-11.0); MONO % 3.4 % (0.0-8.0); MONOCYTE # 0.5 TH/MM3 (0-0.9); PLATELET COUNT 336 TH/MM3 (150-450); RED BLOOD COUNT 4.09 MIL/MM3 (4.00-5.30); RED CELL DISTRIBUTION WIDTH 15.2 % (11.6-17.2); WHITE BLOOD COUNT 14.3 TH/MM3 (4.0-11.0)
[2017-06-04 07:51] LABS: BICARBONATE 27.1 MEQ/L (21.0-32.0); CALCIUM 8.3 MG/DL (8.5-10.1); CREATININE 0.49 MG/DL (0.50-1.00); MAGNESIUM 1.8 MG/DL (1.5-2.5)
[2017-06-04] MEDS: RESP: ALBUTEROL 2.5 MG/IPRATROPIUM 0.5 MG NEB (SCH) NEB ×4 (08:06→21:04)
[2017-06-04] MEDS: SODIUM CHLORIDE 0.9% FLUSH 10 ML FLUSH IV FLUSH SCH ×2 (08:44→18:11)
[2017-06-04] MEDS: CLOPIDOGREL 75 MG TAB PO SCH (08:44)
[2017-06-04] MEDS: CARVEDILOL 6.25 MG TAB PO SCH ×2 (08:45→20:37)
[2017-06-04] MEDS: PANTOPRAZOLE SOD 40 MG DELAYED RELEASE TAB PO SCH (08:45)
[2017-06-04] MEDS: DIGOXIN 0.125 MG TAB PO SCH (08:45)
[2017-06-04] MEDS: DOCUSATE SODIUM 50 MG/SENNA 8.6 MG TAB PO SCH ×2 (08:45→20:40)
--- NOTE | 2017-06-04 09:45 | MB ---
cc: Jace Munroe MD DATE: 06/03/2017 REASON REQUESTING PHYSICIAN: Dr. Tamara Santiago. REASON FOR CONSULTATION: Evaluate for shortness of breath. HISTORY OF PRESENT ILLNESS: Ms. Irwin is a pleasant 62-year-old female who has a history of seizure and she is aphasic. She has right-sided weakness. She also has a history of coronary artery disease, status post CABG, pacemaker placement, CHF and COPD. The patient lives in a [facility] and she was brought over here with worsening of her shortness of breath, did not have any chest pain. No fever or chills. No night sweats. She was evaluated at the hospital. She had a blood gas done, which showed pH 7.39, pCO2 of 44, pO2 81 on 80% oxygen. She was put on BiPAP. Now, she is weaned down to nasal cannula. She is alert, awake, follows command. Denies any chest pain. PAST MEDICAL HISTORY: Significant for coronary artery disease, status post CABG, pacemaker placement, COPD, CHF, CVA, with right-sided weakness, aphasia. MEDICATIONS: She is currently taking Solu-Medrol 40 mg every 6 hours, albuterol, Atrovent nebulizer treatment, Zosyn IV, Lipitor 20 mg a day, vancomycin IV, Plavix 75 mg b.i.d., Coreg 6.25 mg twice a day, digoxin 0.125 mg, Protonix 40 mg a day. ALLERGIES: ALLERGIC TO ADHESIVE TAPE, LOVENOX, GADOBENIC ACID, HEPARIN AND IODINE. SOCIAL HISTORY: She is , has a history of smoking, alcohol abuse in the past. FAMILY HISTORY: She has 3 children. REVIEW OF SYSTEMS: The patient is bedbound, has right-sided weakness and aphasia. She tolerates p.o. feeding. PHYSICAL EXAMINATION: GENERAL: Thin, elderly female, mild short of breath, not in any acute distress. VITAL SIGNS: Blood pressure 138/73, heart rate 78, respirations 20, temperature 97.4. HEENT: Pupils are equal and reactive to light. Oral mucosa and nasal mucosa normal. NECK: Supple. JVD not raised. CHEST: Equal air bilaterally, scattered rhonchi CARDIOVASCULAR: S1, S2 normal. ABDOMEN: Soft, nondistended. Bowel sounds are present. EXTREMITIES: No edema. CENTRAL NERVOUS SYSTEM: The patient is alert, awake, follows command, has right-sided weakness and aphasia. LABORATORY DATA: WBC count is 14.1, hemoglobin 12.0, hematocrit 35.3, MCV 90, platelet count 330. Sodium 146, potassium 3.6, chloride 112, CO2 25, BUN 19, creatinine 0.50. Urine culture is negative. Blood cultures are negative. IMPRESSION: 1. Chronic obstructive pulmonary disease with exacerbation. 2. Respiratory insufficiency has improved. 3. Small pleural effusion. 4. Congestive heart failure. 5. Coronary artery disease, status post coronary artery bypass grafting. 6. Cerebrovascular accident with right-sided weakness. PLAN: I will give her aerosol treatment with albuterol, Atrovent, supplemental oxygen. Continue present antibiotic and check her cultures. Monitor her electrolytes. Keep oxygen greater than 90%. Further treatment will depend on the course in the hospital. Thank you, Dr. Tamara Santiago, for this consult. MD HOOD Martinez/CHINYERE , 08:09 PM , 08:38 PM
--- NOTE | 2017-06-04 11:29 | HHI.PR ---
Subjective Remarks The patient is more awake. No much wheezing today however still with shortness of breath and crackles on the thecal exam. Blood pressure is better controlled and we can give Lasix. Patient still with shortness of breath some labored breathing however improved some. No nausea or vomiting no diarrhea or constipation. Feels very weak. Objective Vitals Vital Signs Date Time Temp Pulse Resp B/P (MAP) Pulse Ox O2 Delivery O2 Flow Rate FiO2 06/04/17 08:08 98 Nasal Cannula 4.00 06/04/17 08:00 97.3 73 19 166/81 (109) 98 06/04/17 07:00 Nasal Cannula 4.00 06/04/17 06:34 98.0 61 26 147/96 (113) 97 06/04/17 04:00 Nasal Cannula 4.00 06/04/17 03:40 61 06/04/17 03:17 77 06/04/17 00:00 97.4 76 18 137/68 (91) 99 06/03/17 23:42 77 06/03/17 20:00 97.4 78 17 135/78 (97) 96 06/03/17 20:00 Nasal Cannula 4.00 06/03/17 19:46 60 06/03/17 16:00 80 06/03/17 16:00 97.9 81 18 126/70 (88) 91 06/03/17 15:35 93 Nasal Cannula 4.00 06/03/17 12:00 87 06/03/17 12:00 97.8 86 18 119/74 (89) 96 I/O 06/03/17 06/03/17 06/03/17 06/04/17 06/04/17 06/04/17 07:00 15:00 23:00 07:00 15:00 23:00 Intake Total 500 ml 350 ml 790 ml Output Total 200 ml 700 ml Balance 300 ml 350 ml 90 ml Intake Oral 150 ml 240 ml IV Total 350 ml 350 ml 550 ml Output Urine Total 200 ml 700 ml # Voids 3 1 # Bowel Movements 3 0 Result Diagram: 06/04/17 0700 06/04/17 0700 Imaging Last Impressions Chest X-Ray 06/03/17 0000 Signed Impressions: Service Date/Time: Saturday, June 03, 2017 08:29 - CONCLUSION: 1. Cardiomegaly with pulmonary edema pattern. 2. Small bilateral pleural effusions. Guzman Oakley MD Upper Extremity Ultrasound 05/31/17 0000 Signed Impressions: Service Date/Time: Wednesday, May 31, 2017 18:33 - CONCLUSION: Negative study. No venous thrombosis of the right upper chest remain. Devin Rocha MD Lung Scan-[facility] Nuclear Medicine 05/29/17 0000 Signed Impressions: Service Date/Time: May 23:57 - CONCLUSION: Low probability scan for pulmonary embolism Devin Castro MD Objective Remarks GENERAL: 62 yo female, in bed chronically ill, brock with clearing urine SKIN: Warm and dry. HEAD: Bitemporal waisting. Atraumatic. Normocephalic. EYES: Pupils equal and round. No scleral icterus. No injection or drainage. ENT: No nasal bleeding or discharge. Mucous membranes pink and moist. NECK: Trachea midline. No JVD. CARDIOVASCULAR: Regular rate and rhythm. RESPIRATORY: Decreased breath sounds, with sob. Scattered wheezing. Bibasilar crackles. GASTROINTESTINAL: Abdomen soft, non-tender, nondistended. Hepatic and splenic margins not palpable. MUSCULOSKELETAL: Right arm edema resolved. Extremities without clubbing, cyanosis. No obvious deformities. NEUROLOGICAL: Awake and alert. Follows some commands. Slurred speech at baseline from previous CVA, also right sided paralysis from previous stroke, right foot drop. A/P Problem List: (1) Hematuria ICD Code: R31.9 - Hematuria, unspecified Assessment and Plan Healthcare associated pneumonia Severe sepsis on admission Acute respiratory failure COPD now with exacerbation Pulmonary congestion, small BL pleural effusions systolic CHF with exacerbation with low EF of 45% Patient with leukocytosis, tachycardia, hypoxia and hypotension on admission ABG 7.39/44/81/26 on admission Repeat ABG 06/03 as patient with sob and with labored breathing, RR of > 35 using some resp accessory muscle, ABG reviewed and reassuring. Repeat Chest x-ray 06/03 reviewed with pulm congestion and small pleural effusions. Give one dose lasix 20 mg IV and monitor closely BP. Give one dose of Solumedrol IV and duonebs. Check BNP. Will do 2D ECHO. Blood cx neg x5 days Received Vancomycin/Zosyn IV abx , change to ceftin po bid BiPAP as need Received NS bolus for Hypotension on admission and was on fluids. Now eating better. Stop fluids. Monitor closely VS. BP is better controlled. On Solumedrol, taper as tolerated Duonebs scheduled and as need Consult pulm if need Acute Anemia drop 2U in HGB , anemia is 2/2 blood loss from hematuria. Urology consulted. Monitor HGB and transfuse if need. H/H stable . Urine is clearing up Hematuria UA with contaminant. Consult urology appreciate recommendations. Protein calorie malnutrition moderate to severe patient with low alb, muscle waisting, weak handgrip, bitemporal waisting . Consult c application developer Right arm edema. Resolved . Doppler US ordered and reviewed no DVT. Keep arm elevated, apply compresses. History of CVA with right sided deficit Continue home Plavix Physical therapy consulted CAD Acute systolic CHF now with exacerbation with low ef 45% Continue home digoxin, carvedilol Will check BNP elevated as noted with pleural effusions. 2D ECHO EF 45%. Received one dose of Lasix IV 20 mg one time. Monitor closely kidney fx and BP as patient was hypotensive 2/2 sepsis Started lasix 20 mg IV daily . Monitor kidney function, UPO , BP closely Hyperlipidemia Continue home statin Heart healthy diet Electrolytes: monitor and replete prn Discussed with the patient. nurse Patient with severe sepsis and now with acute exacerbation of COPD, hematuria Discussed with palliative care patient is DNR also brother is POA will obtain docs. CODE STATUS: DNR DC plan: Pending improvement. Patient is not ready for DC , poss DC tomorrow if improves. Problem Qualifiers (1) Hematuria: Qualified Codes: R31.9 - Hematuria, unspecified Tamara Santiago MD Jun 04, 2017 11:29
--- NOTE | 2017-06-04 12:09 | HHI.HCPN ---
Spoke with patient's brother regarding [facility] DNR. He is aware [facility] DNR is currently on patient's chart for him to sign during his next visit. He denies any questions or concerns at this time. Appreciative of call and assistance with this. Updated RN of paperwork on chart as well. [facility] DNR (yellow copy) will need to go with patient upon discharge to ensure continuity of care regarding her wishes. Palliative care will continue to follow throughout hospitalization. Pebbles Soliz, MECHANICAL FITTER Jun 04, 2017 12:09
[2017-06-04] MEDS ORDERED: FUROSEMIDE 20 MG/2 ML VIAL IV PUSH ONE (14:30)
--- NOTE | 2017-06-04 18:13 | ECHRPT ---
Indication: Heart Failure CONCLUSIONS The left ventricular systolic function is mildly reduced with an estimated ejection fraction of 45%. Wall thickness is measured at the upper limits of normal. Normal left ventricular size. A pacemaker wire is noted. Mitral annular calcification is present. Mild mitral valve regurgitation. There is mild to moderate tricuspid valve regurgitation. The estimated pulmonary arterial pressure is 49 mmHg. Mild pulmonary valve regurgitation. A left sided pleural effusion is present. BP: / HR: Rhythm: Sinus MEASUREMENTS (Male / Female) Normal Values Technical Quality:Fair 2D ECHO LV Diastolic Diameter PLAX 4.5 cm 4.2 - 5.9 / 3.9 - 5.3 cm LV Systolic Diameter PLAX 3.6 cm IVS Diastolic Thickness 1.0 cm 0.6 - 1.0 / 0.6 - 0.9 cm LVPW Diastolic Thickness 0.9 cm 0.6 - 1.0 / 0.6 - 0.9 cm LV Relative Wall Thickness 0.4 RV Internal Dim ED PLAX 2.5 cm LVOT Diameter 1.8 cm LA Systolic Diameter LX 3.1 cm 3.0 - 4.0 / 2.7 - 3.8 cm M-MODE Aortic Root Diameter MM 2.4 cm LA Systolic Diameter MM 3.4 cm LA Ao Ratio MM 1.4 AV Cusp Separation MM 1.6 cm DOPPLER AV Peak Velocity 122.0 cm/s AV Peak Gradient 6.0 mmHg LVOT Peak Velocity 98.7 cm/s LVOT Peak Gradient 3.9 mmHg AV Area Cont Eq pk 2.1 cm MV Area PHT 4.9 cm Mitral E Point Velocity 75.4 cm/s Mitral A Point Velocity 80.6 cm/s Mitral E to A Ratio 0.9 LV E' Lateral Velocity 6.5 cm/s Mitral E to LV E' Lateral Ratio 11.6 LV E' Septal Velocity 6.3 cm/s Mitral E to LV E' Septal Ratio 12.0 TR Peak Velocity 311.0 cm/s TR Peak Gradient 38.7 mmHg Right Atrial Pressure 10.0 mmHg Pulmonary Artery Systolic Pressu 48.7 mmHg Right Ventricular Systolic Press 48.7 mmHg FINDINGS LEFT VENTRICLE The left ventricular systolic function is mildly reduced with an estimated ejection fraction of 45%. Wall thickness is measured at the upper limits of normal. Normal left ventricular size. RIGHT VENTRICLE A pacemaker wire is noted. LEFT ATRIUM The left atrial size is normal. RIGHT ATRIUM There is a pacemaker wire present in the right atrial cavity. ATRIAL SEPTUM Normal atrial septal thickness without atrial level shunting by limited color doppler interrogation. AORTA The aortic root and proximal ascending aorta are normal in size on limited imaging. MITRAL VALVE Mitral annular calcification is present. Mild mitral valve regurgitation. AORTIC VALVE Trileaflet aortic valve. No aortic valve stenosis or regurgitation. TRICUSPID VALVE Structurally normal tricuspid valve. There is mild to moderate tricuspid valve regurgitation. The estimated pulmonary arterial pressure is 48.7 mmHg. PULMONARY VALVE Mild pulmonary valve regurgitation. VESSELS The inferior vena cava is normal in size. PERICARDIUM A left sided pleural effusion is present. Ladonna Oconnor MD, FACC (Electronically Signed) Final Date:04 June 2017 18:11
[2017-06-04] MEDS ORDERED: CEFU1TAB20 PO (19:00)
[2017-06-04] MEDS ORDERED: SYMB160A INH (19:00)
[2017-06-04] MEDS ORDERED: VENTAER INH (19:00)
[2017-06-04] MEDS ORDERED: IPRA17I INH (19:00)
[2017-06-04] MEDS ORDERED: PRED10PA PO (19:00)
--- NOTE | 2017-06-04 19:01 | HHI.DS ---
Discharge Summary Admission Date May 30, 2017 at 01:08 Discharge Date: Jun 06, 2017 Admitting Diagnosis PNA; SIRS; Hypoxia (1) Hematuria ICD Code: R31.9 - Hematuria, unspecified Procedures none Brief History - From Admission 62-year-old female with a past medical history significant for hypertension, COPD, CHF (no recent echo for comparison), history of CVA with residual right- sided hemiparesis and CAD presents to the emergency department from her [facility] for the evaluation of weakness and difficulty breathing 2 hours. The patient is on BiPAP when I evaluated her. She will open her eyes to voice but does not answer questions. Per emergency department documentation the patient endorses shortness of breath and weakness. She denied abdominal pain and dysuria. She denied chest pain/palpitations. No headaches or dizziness. CBC/BMP: 06/04/17 0700 06/04/17 0700 Significant Findings Laboratory Tests Test 06/02/17 11:53 06/03/17 08:20 06/03/17 08:45 06/03/17 11:45 Vancomycin Level Trough 16.6 MCG/ML (5.0-10.0) 19.3 MCG/ML (5.0-10.0) Blood Gas HCO3 27 mmol/L (22-26) Blood Gas Base Excess 3.2 mmol/L (-2-2) Arterial Blood Partial Pressure CO2 43 mmHg (38-42) White Blood Count 14.1 TH/MM3 (4.0-11.0) Red Blood Count 3.88 MIL/MM3 (4.00-5.30) Neutrophils (%) (Auto) 93.1 % (16.0-70.0) Lymphocytes (%) (Auto) 4.4 % (9.0-44.0) Neutrophils # (Auto) 13.1 TH/MM3 (1.8-7.7) Lymphocytes # (Auto) 0.6 TH/MM3 (1.0-4.8) Blood Urea Nitrogen 19 MG/DL (7-18) Random Glucose 117 MG/DL (74-106) Total Protein 6.0 GM/DL (6.4-8.2) Albumin 2.0 GM/DL (3.4-5.0) Sodium Level 146 MEQ/L (136-145) Chloride Level 112 MEQ/L (98-107) B-Type Natriuretic Peptide 496 PG/ML (0-100) Lactic Acid Level 2.2 mmol/L (0.4-2.0) Test 06/03/17 23:40 06/04/17 07:00 Lactic Acid Level 2.2 mmol/L (0.4-2.0) White Blood Count 14.3 TH/MM3 (4.0-11.0) Neutrophils (%) (Auto) 92.0 % (16.0-70.0) Lymphocytes (%) (Auto) 4.1 % (9.0-44.0) Neutrophils # (Auto) 13.2 TH/MM3 (1.8-7.7) Lymphocytes # (Auto) 0.6 TH/MM3 (1.0-4.8) Blood Urea Nitrogen 22 MG/DL (7-18) Creatinine 0.49 MG/DL (0.50-1.00) Random Glucose 111 MG/DL (74-106) Calcium Level 8.3 MG/DL (8.5-10.1) Chloride Level 110 MEQ/L (98-107) Prealbumin 17 MG/DL (20-40) Imaging Last Impressions Chest X-Ray 06/03/17 0000 Signed Impressions: Service Date/Time: Saturday, June 03, 2017 08:29 - CONCLUSION: 1. Cardiomegaly with pulmonary edema pattern. 2. Small bilateral pleural effusions. Guzman Oakley MD Upper Extremity Ultrasound 05/31/17 0000 Signed Impressions: Service Date/Time: Wednesday, May 31, 2017 18:33 - CONCLUSION: Negative study. No venous thrombosis of the right upper chest remain. Devin Rocha MD Lung Scan-V Nuclear Medicine 05/29/17 0000 Signed Impressions: Service Date/Time: May 23:57 - CONCLUSION: Low probability scan for pulmonary embolism Devin Castro MD PE at Discharge GENERAL: 62 yo female, in bed chronically ill, brock with clearing urine SKIN: Warm and dry. HEAD: Bitemporal waisting. Atraumatic. Normocephalic. EYES: Pupils equal and round. No scleral icterus. No injection or drainage. ENT: No nasal bleeding or discharge. Mucous membranes pink and moist. NECK: Trachea midline. No JVD. CARDIOVASCULAR: Regular rate and rhythm. RESPIRATORY: Decreased breath sounds, with sob. Scattered wheezing. Bibasilar crackles. GASTROINTESTINAL: Abdomen soft, non-tender, nondistended. Hepatic and splenic margins not palpable. MUSCULOSKELETAL: Right arm edema resolved. Extremities without clubbing, cyanosis. No obvious deformities. NEUROLOGICAL: Awake and alert. Follows some commands. Slurred speech at baseline from previous CVA, also right sided paralysis from previous stroke, right foot drop. Pt update on day of discharge thing better , no much cough. No n/v/d/c. Improved. No fever or chills. Hospital Course Healthcare associated pneumonia Severe sepsis on admission Acute respiratory failure COPD now with exacerbation Pulmonary congestion, small BL pleural effusions systolic CHF with exacerbation with low EF of 45% Patient with leukocytosis, tachycardia, hypoxia and hypotension on admission ABG 7.39/44/81/26 on admission Repeat ABG 06/03 as patient with sob and with labored breathing, RR of > 35 using some resp accessory muscle, ABG reviewed and reassuring. Repeat Chest x-ray 06/03 reviewed with pulm congestion and small pleural effusions. Give one dose lasix 20 mg IV and monitor closely BP. Give one dose of Solumedrol IV and duonebs. Check BNP. 2D ECHO. Blood cx neg x5 days Received Vancomycin/Zosyn IV abx , change to ceftin po bid BiPAP as need Received NS bolus for Hypotension on admission and was on fluids. Now eating better. Stop fluids. Monitor closely VS. BP is better controlled. On Solumedrol, taper as tolerated Duonebs scheduled and as need Consult pulm appreciate recs Acute Anemia drop 2U in HGB , anemia is 2/2 blood loss from hematuria. Urology consulted. Monitor HGB and transfuse if need. H/H stable . Urine is clearing up Hematuria UA with contaminant. Consult urology appreciate recommendations. Urine is cleared Protein calorie malnutrition moderate to severe patient with low alb, muscle waisting, weak handgrip, bitemporal waisting . Consult automotive electrical helper Right arm edema. Resolved . Doppler US ordered and reviewed no DVT. Keep arm elevated, apply compresses. History of CVA with right sided deficit Continue home Plavix Physical therapy consulted CAD Acute systolic CHF now with exacerbation with low ef 45% Continue home digoxin, carvedilol Will check BNP elevated as noted with pleural effusions. 2D ECHO EF 45%. Received one dose of Lasix IV 20 mg one time. Monitor closely kidney fx and BP as patient was hypotensive 2/2 sepsis Started lasix 20 mg IV daily . Monitor kidney function, UPO , BP closely Hyperlipidemia Continue home statin Heart healthy diet Electrolytes: monitor and replete prn Discussed with the patient. nurse Patient with severe sepsis and now with acute exacerbation of COPD, hematuria Discussed with palliative care patient is DNR also brother is POA will obtain docs. CODE STATUS: DNR Improved. Patient is DC to SNF in stable condition to follow up as OP with PCP and consultants. Pt Condition on Discharge: Deteriorating Discharge Disposition: Hospice/ Home Discharge Time: > 30 minutes Discharge Instructions DIET: Follow Instructions for: Heart Healthy Diet Speech Therapy-Diet Recommends: Pureed, [place] Thickened Liquids Activities you can perform: Regular-No Restrictions Follow up Referrals: PCP Follow-up - 2-3 Days Pulmonology - 2 Weeks with Jace Munroe MD Urology - 1 Week New Orders: PFT W/ABG - 1 Week New Medications: Albuterol 18 GM Inh (Ventolin Hfa 18 GM Inh) 90 Mcg/Act Aer 2 PUFF INH Q4-6H PRN for SHORTNESS OF BREATH, #1 INHALER 0 Refills Budesonide-Formoterol Inh (Symbicort Inh) 160-4.5 Mcg/Act Aero 2 PUFF INH Q12HR, #1 INHALER 0 Refills Ipratropium HFA 12.9 GM Inh (Atrovent HFA 12.9 GM Inh) 17 Mcg/Actuation Aer 2 PUFF INH Q6HR PRN for SHORTNESS OF BREATH, #1 INHALER 0 Refills Prednisone (21) 10 mg tab Dose Pack (Prednisone (21) 10 mg tab Dose Pack) 10 Mg Pack 10 MG PO DIRECTED for Inflammation, #1 DSPK 0 Refills Cefuroxime (Cefuroxime) 500 Mg Tab 500 MG PO Q12HR for infection, #14 TAB Continued Medications: Arformoterol Neb (Brovana Neb) 15 Mcg/2 Ml Vial 1 NEBULE NEB BID for Broncospasm, #60 NEBULE Maintenance treatment of bronchoconstriction in COPD. Atorvastatin (Atorvastatin) 20 Mg Tab 20 MG PO HS for Cholesterol Management, #30 TAB 0 Refills Carvedilol (Carvedilol) 6.25 Mg Tab 6.25 MG PO BID, #60 TAB 0 Refills Clopidogrel (Clopidogrel) 75 Mg Tab 75 MG PO DAILY for Blood Clot Prevention, #30 TAB 0 Refills Digoxin (Digoxin) 0.125 Mg Tab 125 MCG PO DAILY for Regulate Heart Beat, #30 TAB 0 Refills Gabapentin (Gabapentin) 300 Mg Cap 300 MG PO TID, #90 CAP 0 Refills Guaifenesin ER (Mucus Relief ER) 600 Mg Tab 600 MG PO BID PRN for CHEST CONGESTION AND/OR COUGH, TAB 0 Refills Pantoprazole (Protonix) 40 Mg Tab 40 MG PO DAILY for Reflux, #30 TAB 0 Refills Tamara Santiago MD Jun 04, 2017 19:01
--- NOTE | 2017-06-04 19:46 | HHI.PR ---
Subjective Remarks 62 YOWF with CVA, rt weakness, aphasia,CAD,Pacemaker Alert, awake, follows commands No fever no CP Objective Vital Signs Vital Signs Date Time Temp Pulse Resp B/P (MAP) Pulse Ox O2 Delivery O2 Flow Rate FiO2 06/04/17 16:15 97.3 73 15 163/83 (109) 97 06/04/17 12:00 97.6 82 18 142/73 (96) 94 06/04/17 12:00 79 06/04/17 08:08 98 Nasal Cannula 4.00 06/04/17 08:00 97.3 73 19 166/81 (109) 98 06/04/17 07:00 Nasal Cannula 4.00 06/04/17 06:34 98.0 61 26 147/96 (113) 97 06/04/17 04:00 Nasal Cannula 4.00 06/04/17 03:40 61 06/04/17 03:17 77 06/04/17 00:00 97.4 76 18 137/68 (91) 99 06/03/17 23:42 77 06/03/17 20:00 97.4 78 17 135/78 (97) 96 06/03/17 20:00 Nasal Cannula 4.00 06/03/17 19:46 60 I/O 06/03/17 06/03/17 06/03/17 06/04/17 06/04/17 06/04/17 07:00 15:00 23:00 07:00 15:00 23:00 Intake Total 500 ml 350 ml 790 ml 580 ml Output Total 200 ml 700 ml Balance 300 ml 350 ml 90 ml 580 ml Intake Oral 150 ml 240 ml 580 ml IV Total 350 ml 350 ml 550 ml Output Urine Total 200 ml 700 ml # Voids 3 1 # Bowel Movements 3 0 Result Diagram: 06/04/17 0700 06/04/17 0700 Objective Remarks GENERAL: Thin built WF,NAD SKIN: Warm and dry. HEAD: Normocephalic. EYES: No scleral icterus. No injection or drainage. NECK: Supple, trachea midline. No JVD or lymphadenopathy. CARDIOVASCULAR: Regular rate and rhythm without murmurs, gallops, or rubs. RESPIRATORY: Breath sounds equal bilaterally. No accessory muscle use. GASTROINTESTINAL: Abdomen soft, non-tender, nondistended. MUSCULOSKELETAL: No cyanosis, or edema. BACK: Nontender without obvious deformity. No CVA tenderness. A/P Assessment and Plan IMPRESSION: 1. Chronic obstructive pulmonary disease with exacerbation. 2. Respiratory insufficiency has improved. 3. Small pleural effusion. 4. Congestive heart failure. 5. Coronary artery disease, status post coronary artery bypass grafting. 6. Cerebrovascular accident with right-sided weakness. PLAN: Aerosol nebs PO ABX IV Solumedrol Supplement 02 Encourage po Jace Munroe MD Jun 04, 2017 19:46
[2017-06-04] MEDS: CEFUROXIME AXETIL 500 MG TAB PO SCH (20:37)
[2017-06-04] MEDS: ATORVASTATIN 20 MG TAB PO SCH (20:37)
[2017-06-05] VITALS (7 sets, daily range): BP systolic 135–163; BP diastolic 82–91; PULSE 63–83; RESP 16–20; TEMP 97.8–98.4; O2SAT 94–97
[2017-06-05] MEDS: methylPREDNISolone SOD SUCC 40 MG/1 ML VIAL IV PUSH SCH ×2 (05:40→14:00)
[2017-06-05] MEDS: RESP: ALBUTEROL 2.5 MG/IPRATROPIUM 0.5 MG NEB (SCH) NEB ×3 (08:18→15:21)
[2017-06-05] MEDS ORDERED: FUROSEMIDE 20 MG/2 ML VIAL IV PUSH SCH (09:00)
[2017-06-05] MEDS: DOCUSATE SODIUM 50 MG/SENNA 8.6 MG TAB PO SCH (09:00)
[2017-06-05] MEDS: SODIUM CHLORIDE 0.9% FLUSH 10 ML FLUSH IV FLUSH SCH (09:08)
[2017-06-05] MEDS: CLOPIDOGREL 75 MG TAB PO SCH (09:09)
[2017-06-05] MEDS: CARVEDILOL 6.25 MG TAB PO SCH (09:09)
[2017-06-05] MEDS: PANTOPRAZOLE SOD 40 MG DELAYED RELEASE TAB PO SCH (09:09)
[2017-06-05] MEDS: CEFUROXIME AXETIL 500 MG TAB PO SCH (09:09)
[2017-06-05] MEDS: DIGOXIN 0.125 MG TAB PO SCH (09:10)
--- NOTE | 2017-06-05 15:57 | HHI.PR ---
Subjective Remarks 62 YOWF with CVA, rt weakness, aphasia,CAD,Pacemaker Alert, awake, follows commands No fever no CP On 2LNC Objective Vital Signs Vital Signs Date Time Temp Pulse Resp B/P (MAP) Pulse Ox O2 Delivery O2 Flow Rate FiO2 06/05/17 15:21 94 Nasal Cannula 2.50 06/05/17 15:06 Nasal Cannula 4.00 06/05/17 12:00 98.4 77 20 135/91 (106) 94 06/05/17 09:10 Nasal Cannula 4.00 06/05/17 08:00 72 06/05/17 08:00 98.2 75 20 160/89 (112) 97 06/05/17 04:00 63 06/05/17 04:00 98.3 69 16 147/87 (107) 95 06/05/17 00:05 71 06/05/17 00:00 98.0 82 16 147/82 (103) 96 06/04/17 21:29 97 Nasal Cannula 3.00 06/04/17 20:45 Nasal Cannula 4.00 06/04/17 20:05 89 06/04/17 19:30 97.9 75 17 145/82 (103) 94 06/04/17 16:15 97.3 73 15 163/83 (109) 97 06/04/17 16:00 72 I/O 06/04/17 06/04/17 06/04/17 06/05/17 06/05/17 06/05/17 07:00 15:00 23:00 07:00 15:00 23:00 Intake Total 880 ml 240 ml 240 ml Output Total 2000 ml 500 ml 1200 ml Balance -1120 ml -260 ml -960 ml Intake Oral 880 ml 240 ml 240 ml Output Urine Total 2000 ml 500 ml 1200 ml # Voids 1 # Bowel Movements 0 2 Result Diagram: 06/04/17 0700 06/04/17 0700 Objective Remarks GENERAL: Thin built WF,NAD SKIN: Warm and dry. HEAD: Normocephalic. EYES: No scleral icterus. No injection or drainage. NECK: Supple, trachea midline. No JVD or lymphadenopathy. CARDIOVASCULAR: Regular rate and rhythm without murmurs, gallops, or rubs. RESPIRATORY: Breath sounds equal bilaterally. No accessory muscle use. GASTROINTESTINAL: Abdomen soft, non-tender, nondistended. MUSCULOSKELETAL: No cyanosis, or edema. BACK: Nontender without obvious deformity. No CVA tenderness. A/P Assessment and Plan IMPRESSION: 1. Chronic obstructive pulmonary disease with exacerbation. 2. Respiratory insufficiency has improved. 3. Small pleural effusion. 4. Congestive heart failure. 5. Coronary artery disease, status post coronary artery bypass grafting. 6. Cerebrovascular accident with right-sided weakness. PLAN: Aerosol nebs PO ABX Supplement 02 DC 02 if sat >90% Encourage po Jace Munroe MD Jun 05, 2017 15:57
== END 2017-06-05 16:00 | DRG 871 ==
LOC: NEPE 21:40 → NEDA 05-30 01:08 → NEDH 05-30 05:08 → N04B 05-30 18:14
PROVIDERS: ADMIT Hospitalist; ATTEND Hospitalist
PROC: 5A09357 Assistance with Respiratory Ventilation, Less than 24 Consecutive Hours, Continuous Positive Airway Pressure (ICD-10-PCS; principal; 2017-05-29)
DX: A41.9 Sepsis, unspecified organism (principal); I50.23 Acute on chronic systolic (congestive) heart failure; J96.01 Acute respiratory failure with hypoxia; I95.9 Hypotension, unspecified; J18.9 Pneumonia, unspecified organism; E44.0 Moderate protein-calorie malnutrition; I11.0 Hypertensive heart disease with heart failure; J44.0 Chronic obstructive pulmonary disease with (acute) lower respiratory infection; D62 Acute posthemorrhagic anemia; I69.351 Hemiplegia and hemiparesis following cerebral infarction affecting right dominant side; J44.1 Chronic obstructive pulmonary disease with (acute) exacerbation; Z91.041 Radiographic dye allergy status; I69.320 Aphasia following cerebral infarction; I25.10 Atherosclerotic heart disease of native coronary artery without angina pectoris; E78.5 Hyperlipidemia, unspecified; I25.2 Old myocardial infarction; K21.9 Gastro-esophageal reflux disease without esophagitis; K44.9 Diaphragmatic hernia without obstruction or gangrene; Z95.1 Presence of aortocoronary bypass graft; Z95.810 Presence of automatic (implantable) cardiac defibrillator; Y95 Nosocomial condition; I48.91 Unspecified atrial fibrillation; Z82.49 Family history of ischemic heart disease and other diseases of the circulatory system; Z79.02 Long term (current) use of antithrombotics/antiplatelets; Z82.5 Family history of asthma and other chronic lower respiratory diseases; Z87.891 Personal history of nicotine dependence; Z66 Do not resuscitate; R65.20 Severe sepsis without septic shock; R31.9 Hematuria, unspecified
CPT/HCPCS: 36600; 71045; 76937; 78582; 80048; 80053; 80202; 81001; 82550; 82805; 83605; 83735; 83880; 84134; 84484; 85025; 85610; 85730; 87040; 87086; 93005; 93306; 93971; 94002; 94003; 94640; 94664; 96365; 96375; A9540; A9567; J1644; J1940; J2543; J2920; J2930; J3370; J7040; J7050

== ENCOUNTER 2017-06-15 13:59 | Inpatient (IN) | payer MEDICARE ==
[~2017-06-15] VITALS: Ht 160 cm; Wt 46.1 kg
[2017-06-15] VITALS (12 sets, daily range): BP systolic 10–93; BP diastolic 49–67; PULSE 78–102; RESP 12–18; TEMP 97.5–98.1; O2SAT 93–100
[~2017-06-15 13:59] MED LIST changes: +ATOR20TA15 PO; +BROV15NE NEB; -CARV12.5; +CARV6.252 PO; +CEFU1TAB20 PO; -CLOP75; +CLOP75TA PO; -DIAZ10; -DIGO.125; +DIGO0.12 PO; +GABA300C5 PO; +GUAI600T11 PO; +IPRA17I INH; -LASI20TA; -LORT5TAB; +PRED10PA PO; -PREV30CA36; +PROT40TA PO; -REST15CA; -ROSU20; -SOMA350T; +SYMB160A INH; +VENTAER INH; -ZOLO25TA
[2017-06-15 14:41] LABS: AUTOMATED NEUTROPHIL # 15.8 TH/MM3 (1.8-7.7); BASOPHIL # 0.1 TH/MM3 (0-0.2); BASOPHIL % 0.6 % (0.0-2.0); EOSINOPHIL % 0.1 % (0.0-4.0); HEMOGLOBIN 12.5 GM/DL (11.6-15.3); LYMPH % 4.2 % (9.0-44.0); LYMPHOCYTE # 0.7 TH/MM3 (1.0-4.8); MEAN CELL VOLUME 92.4 FL (80.0-100.0); MEAN CORPUSCULAR HEMOGLOBIN 29.6 PG (27.0-34.0); MEAN PLATELET VOLUME 9.2 FL (7.0-11.0); MONO % 5.9 % (0.0-8.0); MONOCYTE # 1.1 TH/MM3 (0-0.9); NEUT % 89.2 % (16.0-70.0); PLATELET COUNT 309 TH/MM3 (150-450); RED BLOOD COUNT 4.22 MIL/MM3 (4.00-5.30); RED CELL DISTRIBUTION WIDTH 15.8 % (11.6-17.2); WHITE BLOOD COUNT 17.7 TH/MM3 (4.0-11.0)
--- NOTE | 2017-06-15 14:51 | PD ---
HPI Chief Complaint: Respiratory Symptoms Time Seen by Provider: 14:06 Travel History International Travel<30 days: No Contact w/Intl Traveler<30days: No Traveled to known affect area: No History of Present Illness HPI 62-year-old female was brought in from local intermediate for respiratory distress. Patient was found to have respiratory distress this afternoon. EMS was called. Patient was brought to ED for evaluation. Patient was given O2 via nonrebreathing mask on the way to the ED. Patient has history hypertension , COPD, CHF, status post CVA with residual right-sided hemiparesis. Patient also has history of CAD status post pacemaker placement. Patient was admitted to [facility] May 30 and discharged June 06 with diagnosis of pneumonia, severe sepsis, acute respiratory failure, COPD exacerbation, pulmonary congestion with bilateral effusion, systolic CHF with low ejection fraction of 45%, anemia, malnutrition. CODE STATUS was noted to be DNR. PFSH Past Medical History Arthritis: No Asthma: No Autoimmune Disease: No Blood Disorders: No Anxiety: No Depression: No Heart Rhythm Problems: No Cancer: No Cardiovascular Problems: Yes (CHEST PAIN, ANGINA, HEART ATTACK) High Cholesterol: Yes Chemotherapy: No Chest Pain: Yes Congestive Heart Failure: Yes COPD: Yes Cerebrovascular Accident: Yes Coronary Artery Disease: Yes Diabetes: No Diminished Hearing: No Endocrine: No GERD: Yes Glaucoma: No Genitourinary: No Headaches: No Hepatitis: No Hiatal Hernia: Yes Hypertension: Yes Immune Disorder: No Kidney Stones: No Musculoskeletal: No Neurologic: Yes (STROKE) Psychiatric: No Reproductive: No Respiratory: No Myocardial Infarction: Yes Radiation Therapy: No Renal Failure: No Seizures: No Sickle Cell Disease: No Sleep Apnea: No Thyroid Disease: No Ulcer: No ?: Not Menopausal: Yes Past Surgical History Abdominal Surgery: Yes AICD: Yes Appendectomy: Yes Arteriovenous Shunt: No Body Medical Devices: STATES CARDIAC STINTS Cardiac Surgery: Yes Cholecystectomy: Yes Coronary Artery Bypass Graft: Yes (3 VESSEL BYPASS) Coronary Stent: Yes (MULTIPLE STENT PLACEMENTS) Ear Surgery: No Endocrine Surgery: No Eye Surgery: No Genitourinary Surgery: No Gynecologic Surgery: No Insulin Pump: No Joint Replacement: No Oral Surgery: No Pacemaker: Yes (AICD V-193) Thoracic Surgery: Yes Other Surgery: Yes (CABG X 3 CAROTID ARTERY, APPY, RUAL, AICD) Social History Alcohol Use: No Tobacco Use: No Substance Use: No Allergies-Medications (Allergen,Severity, Reaction): Coded Allergies: adhesive (Unverified Allergy, Severe, 05/29/17) aspirin (Unverified Allergy, Severe, 05/29/17) diatrizoate meglumine (Unverified Allergy, Severe, Hives, 05/29/17) enoxaparin (Unverified Allergy, Severe, 05/29/17) HIT POSITIVE gadobenic acid (Unverified Allergy, Severe, Hives, 05/29/17) gadodiamide (Unverified Allergy, Severe, Hives, 05/29/17) gadoteridol (Unverified Allergy, Severe, Hives, 05/29/17) heparin (porcine) (Unverified Allergy, Severe, 05/29/17) HIT POSITIVE iodine (Unverified Allergy, Severe, 05/29/17) iodixanol (Unverified Allergy, Severe, Hives, 05/29/17) iohexol (Unverified Allergy, Severe, Hives, 05/29/17) sodium iodide (Unverified Allergy, Severe, 05/29/17) sodium iodide (Unverified Allergy, Severe, 05/29/17) sulfamethoxazole (Unverified Allergy, Severe, 05/29/17) trimethoprim (Unverified Allergy, Severe, 05/29/17) Reported Meds & Prescriptions Reported Meds & Active Scripts Active Reported Tramadol (Tramadol HCl) 50 Mg Tab 50 Mg PO BID PRN Duoneb (Ipratropium-Albuterol Neb) 0.5-2.5 Mg/3 Ml Neb 3 Ml NEB Q6HR PRN Budesonide Neb 0.5 Mg/2 Ml Neb 0.5 Mg NEB Q12HR NEB Carvedilol 6.25 Mg Tab 6.25 Mg PO BID Mucus Relief ER (Guaifenesin) 600 Mg Tab 1,200 Mg PO BID Gabapentin 300 Mg Cap 300 Mg PO TID Brovana Neb (Arformoterol Neb) 15 Mcg/2 Ml Vial 2 Ml NEB BID Maintenance treatment of bronchoconstriction in COPD. Atorvastatin (Atorvastatin Calcium) 20 Mg Tab 20 Mg PO HS Clopidogrel (Clopidogrel Bisulfate) 75 Mg Tab 75 Mg PO DAILY Digoxin 0.125 Mg Tab 125 Mcg PO DAILY Protonix (Pantoprazole Sodium) 40 Mg Tab 40 Mg PO DAILY Review of Systems General / Constitutional: No: Fever Eyes: No: Visual changes HENT: No: Headaches Cardiovascular: No: Chest Pain or Discomfort Respiratory: Positive: Shortness of Breath Gastrointestinal: No: Abdominal Pain Genitourinary: No: Dysuria Musculoskeletal: No: Pain Skin: No Rash Neurologic: No: Weakness Psychiatric: No: Depression Endocrine: No: Polydipsia Hematologic/Lymphatic: No: Easy Bruising Physical Exam Narrative GENERAL: Thin patient, tachypnea. SKIN: Focused skin assessment warm/dry. HEAD: Normocephalic. EYES: No scleral icterus. No injection or drainage. NECK: Supple, trachea midline. No JVD or lymphadenopathy. CARDIOVASCULAR: Regular rate and rhythm without murmurs, gallops, or rubs. RESPIRATORY: Markedly decreased breath sounds in the left lung. Rhonchi at the bases. Patient is tachypneic. GASTROINTESTINAL: Abdomen soft, non-tender, nondistended. MUSCULOSKELETAL: No cyanosis, or edema. BACK: Nontender without obvious deformity. No CVA tenderness. Neurologic exam: Patient is lethargic and not verbalizing. Patient lying in bed with eyes closed. Data Data Last Documented VS Vital Signs Date Time Temp Pulse Resp B/P (MAP) Pulse Ox O2 Delivery O2 Flow Rate FiO2 06/15/17 16:40 95 18 93/56 (68) 98 Non-Rebreather 13.00 Orders Orders Electrocardiogram (06/15/17 14:06) Complete Blood Count With Diff (06/15/17 14:06) Comprehensive Metabolic Panel (06/15/17 14:06) Creatine Kinase (Cpk) (06/15/17 14:06) Troponin I (06/15/17 14:06) B-Type Natriuretic Peptide (06/15/17 14:06) Prothrombin Time / Inr (Pt) (06/15/17 14:06) Act Partial Throm Time (Ptt) (06/15/17 14:06) Blood Culture (06/15/17 14:06) Urinalysis - C+S If Indicated (06/15/17 14:06) Thyroid Stimulating Hormone (06/15/17 14:06) Chest, Single Ap (06/15/17 14:06) Iv Access Insert/Monitor (06/15/17 14:06) Ecg Monitoring (06/15/17 14:06) Oximetry (06/15/17 14:06) Lactic Acid (06/15/17 14:24) Urine Culture (06/15/17 14:38) Levofloxacin 750 Mg Premix Inj (Levaquin (06/15/17 16:45) Vancomycin Inj (Vancomycin Inj) (06/15/17 16:45) Labs Laboratory Tests Test 06/15/17 14:14 06/15/17 14:38 06/15/17 14:45 White Blood Count 17.7 TH/MM3 Red Blood Count 4.22 MIL/MM3 Hemoglobin 12.5 GM/DL Hematocrit 39.0 % Mean Corpuscular Volume 92.4 FL Mean Corpuscular Hemoglobin 29.6 PG Mean Corpuscular Hemoglobin Concent 32.0 % Red Cell Distribution Width 15.8 % Platelet Count 309 TH/MM3 Mean Platelet Volume 9.2 FL Neutrophils (%) (Auto) 89.2 % Lymphocytes (%) (Auto) 4.2 % Monocytes (%) (Auto) 5.9 % Eosinophils (%) (Auto) 0.1 % Basophils (%) (Auto) 0.6 % Neutrophils # (Auto) 15.8 TH/MM3 Lymphocytes # (Auto) 0.7 TH/MM3 Monocytes # (Auto) 1.1 TH/MM3 Eosinophils # (Auto) 0.0 TH/MM3 Basophils # (Auto) 0.1 TH/MM3 CBC Comment DIFF FINAL Differential Comment Prothrombin Time 10.7 SEC Prothromb Time International Ratio 1.1 RATIO Activated Partial Thromboplast Time 24.0 SEC Blood Urea Nitrogen 33 MG/DL Creatinine 0.56 MG/DL Random Glucose 139 MG/DL Total Protein 6.2 GM/DL Albumin 1.8 GM/DL Calcium Level 8.6 MG/DL Alkaline Phosphatase 104 U/L Aspartate Amino Transf (AST/SGOT) 28 U/L Alanine Aminotransferase (ALT/SGPT) 20 U/L Total Bilirubin 0.3 MG/DL Sodium Level 148 MEQ/L Potassium Level 4.4 MEQ/L Chloride Level 111 MEQ/L Carbon Dioxide Level 30.1 MEQ/L Anion Gap 7 MEQ/L Estimat Glomerular Filtration Rate 109 ML/MIN Total Creatine Kinase 35 U/L Troponin I 0.12 NG/ML B-Type Natriuretic Peptide 233 PG/ML Thyroid Stimulating Hormone 3rd Gen 0.726 uIU/ML Urine Color YELLOW Urine Turbidity HAZY Urine pH 5.5 Urine Specific [place] 1.034 Urine Protein 30 mg/dL Urine Glucose (UA) NEG mg/dL Urine Ketones NEG mg/dL Urine Occult Blood SMALL Urine Nitrite POS Urine Bilirubin NEG Urine Urobilinogen LESS THAN 2.0 MG/DL Urine Leukocyte Esterase MOD Urine RBC 36 /hpf Urine WBC 48 /hpf Urine Squamous Epithelial Cells 3 /hpf Urine Calcium Oxalate Crystals RARE /hpf Urine Hyaline Casts 8 /lpf Urine White Blood Cell Casts 5 /lpf Urine Mucus MANY /lpf Urine Yeast (Budding) FEW Microscopic Urinalysis Comment CULTURE INDICATED Lactic Acid Level 1.4 mmol/L [facility] Medical Decision Making Medical Screen Exam Complete: Yes Emergency Medical Condition: Yes Interpretation(s) Last Impressions Chest X-Ray 06/15/17 1406 Signed Impressions: Service Date/Time: Thursday, June 15, 2017 14:11 - CONCLUSION: Suspected at least moderate left pleural effusion with some cupping atelectasis or consolidation the left base. Devin Osborn MD 1641 PM. CBC WBC 17.7. 89 neutrophil. BUN 33. Lactic acid 1.4. Troponin 0 0.12. BNP 233. UA positive for WBC and bacteria. Differential Diagnosis Differential diagnoses include acute exacerbation COPD, CHF, pneumonia, PE, pneumothorax, pleural effusion. Narrative Course 62-year-old female with respiratory distress. Patient was recently admitted and discharged for acute exacerbation COPD, pleural effusion, CHF, and pneumonia. Diagnosis Primary Impression: Pneumonia Qualified Codes: J18.1 - Lobar pneumonia, unspecified organism Additional Impressions: Pleural effusion, left Respiratory failure Qualified Codes: J96.01 - Acute respiratory failure with hypoxia; J96.02 - Acute respiratory failure with hypercapnia Jeremi Stout MD Jun 15, 2017 14:51
[2017-06-15 14:59] LABS: ALBUMIN 1.8 GM/DL (3.4-5.0); ALT (GPT) 20 U/L (10-53); AST (GOT) 28 U/L (15-37); BICARBONATE 30.1 MEQ/L (21.0-32.0); BLOOD UREA NITROGEN 33 MG/DL (7-18); CALCIUM 8.6 MG/DL (8.5-10.1); CHLORIDE 111 MEQ/L (98-107); CREATININE 0.56 MG/DL (0.50-1.00); GLOMERULAR FILTRATION RATE 109 ML/MIN (>89); GLUCOSE,RANDOM 139 MG/DL (74-106); SODIUM (NA) 148 MEQ/L (136-145)
[2017-06-15 15:11] LABS: ALKALINE PHOSPHATASE 104 U/L (45-117); TOTAL BILIRUBIN ADULT 0.3 MG/DL (0.2-1.0); TOTAL PROTEIN 6.2 GM/DL (6.4-8.2); TROPONIN I 0.12 NG/ML (0.02-0.05)
--- NOTE | 2017-06-15 15:11 | RADRPT ---
EXAM DATE/TIME: 06/15/2017 14:11 [facility] COMPARISON: CHEST SINGLE AP, June 03, 2017, 8:29. INDICATIONS : Shortness of breath. MEDICAL HISTORY : Hypertension. Chronic obstructive pulmonary disease. Gastroesophageal reflux disease. Stroke. Con gestive heart failure. SURGICAL HISTORY : Pacemaker. CABG. Appendectomy. ENCOUNTER: Initial ACUITY: 1 day PAIN SCORE: Non-responsive. LOCATION: Bilateral chest FINDINGS: Patient is status post sternotomy. There is a multilead biventricular pacing device seen in the left chest. The heart size is upper limits of normal. There is increased density at the left base consiste nt with at least a moderate effusion. There is hazy density throughout the left chest likely related to the effusion. Some degree of superimposed atelectasis or consolidation of the left basal needs to be considered. Right lung is grossly clear. CONCLUSION: Suspected at least moderate left pleural effusion with some cupping atelectasis or consolidation the left base. Devin Osborn MD on June 15, 2017 at 15:06 Board Certified Radiologist. This report was verified electronically.
[2017-06-15 15:21] LABS: INTERNATIONAL NORMALIZED RATIO 1.1 RATIO; PROTHROMBIN TIME - PATIENT 10.7 SEC (9.8-11.6)
[2017-06-15 15:59] LABS: BILIRUBIN, URINE NEG (NEG); BLOOD, URINE SMALL (NEG); CALCIUM OXALATE CRYSTALS,URINE RARE /hpf; GLUCOSE,URINE NEG (NEG); HYALINE CAST, URINE 8 /lpf (RARE); KETONE, URINE NEG (NEG); MUCUS URINE MANY /lpf (OCC); NITRITE,URINE POS (NEG); PH, URINE 5.5 (5.0-8.5); SQUAMOUS EPITHELIAL CELL URINE 3 /hpf (0-5); URINE COLOR YELLOW (YELLW/STRAW); URINE LEUKOCYTE ESTERASE MOD (NEG); WHITE BLOOD CELL CAST, URINE 5 /lpf
[2017-06-15] MEDS ORDERED: VANCOMYCIN INJ 1,000 MG in SODIUM CHLOR 0.9% 250 ML INJ 250 ML IV ONE (16:45)
[2017-06-15] MEDS ORDERED: LEVOFLOXACIN 750 MG PREMIX INJ 150 ML IV ONE (16:45)
[2017-06-15] MEDS ORDERED: TRAM50TA PO (16:54)
[2017-06-15] MEDS ORDERED: BUDE0.5S NEB (16:54)
[2017-06-15] MEDS ORDERED: IPRASOL NEB (16:54)
--- NOTE | 2017-06-15 17:31 | HHI.HP ---
HPI Service [facility] Primary Care Physician Unknown Admission Diagnosis Pneumonia. Pleural effusion. Respiratory failure Diagnoses: Chief Complaint: Shortness of breath Travel History International Travel<30 Days: No Contact w/Intl Traveler <30 Da: No Traveled to Known Affected Are: No History of Present Illness This is a 62-year-old female with history of systolic congestive heart failure, dyslipidemia, CVA with right-sided deficits who was brought from [facility] for shortness of breath and hypoxia. Of note, the patient was admitted on May 30, 2017 and stayed in the hospital for 1 week, discharged June 06, 2017 to [facility]. She was treated for respiratory failure secondary to acute congestive heart failure exacerbation and pneumonia. She responded to Lasix and antibiotics and was then discharged to skilled rehab. Per notes from [facility], the patient was sent to the hospital because of hypoxia. Patient is a very poor historian, she nods but is nonverbal. She follows some commands. She has a DNR form from the [facility] and was on a DNR during her previous hospitalization. Presently, she is on a nonrebreather. Review of Systems ROS Limitations: Speech Impaired, Poor Historian, Other Past Family Social History Past Medical History Per EMR Hypertension COPD Systolic congestive heart failure CVA with right-sided hemiparesis Coronary artery disease Past Surgical History Cannot be obtained due to mental status Reported Medications Tramadol (Tramadol HCl) 50 Mg Tab 50 Mg PO BID PRN Duoneb (Ipratropium-Albuterol Neb) 0.5-2.5 Mg/3 Ml Neb 3 Ml NEB Q6HR PRN Budesonide Neb 0.5 Mg/2 Ml Neb 0.5 Mg NEB Q12HR NEB Carvedilol 6.25 Mg Tab 6.25 Mg PO BID Mucus Relief ER (Guaifenesin) 600 Mg Tab 1,200 Mg PO BID Gabapentin 300 Mg Cap 300 Mg PO TID Brovana Neb (Arformoterol Neb) 15 Mcg/2 Ml Vial 2 Ml NEB BID Maintenance treatment of bronchoconstriction in COPD. Atorvastatin (Atorvastatin Calcium) 20 Mg Tab 20 Mg PO HS Clopidogrel (Clopidogrel Bisulfate) 75 Mg Tab 75 Mg PO DAILY Digoxin 0.125 Mg Tab 125 Mcg PO DAILY Protonix (Pantoprazole Sodium) 40 Mg Tab 40 Mg PO DAILY Allergies: Coded Allergies: adhesive (Unverified Allergy, Severe, 05/29/17) aspirin (Unverified Allergy, Severe, 05/29/17) diatrizoate meglumine (Unverified Allergy, Severe, Hives, 05/29/17) enoxaparin (Unverified Allergy, Severe, 05/29/17) HIT POSITIVE gadobenic acid (Unverified Allergy, Severe, Hives, 05/29/17) gadodiamide (Unverified Allergy, Severe, Hives, 05/29/17) gadoteridol (Unverified Allergy, Severe, Hives, 05/29/17) heparin (porcine) (Unverified Allergy, Severe, 05/29/17) HIT POSITIVE iodine (Unverified Allergy, Severe, 05/29/17) iodixanol (Unverified Allergy, Severe, Hives, 05/29/17) iohexol (Unverified Allergy, Severe, Hives, 05/29/17) sodium iodide (Unverified Allergy, Severe, 05/29/17) sodium iodide (Unverified Allergy, Severe, 05/29/17) sulfamethoxazole (Unverified Allergy, Severe, 05/29/17) trimethoprim (Unverified Allergy, Severe, 05/29/17) Family History Cannot be obtained due to mental status Social History Cannot be obtained due to mental status. Physical Exam Vital Signs Vital Signs Date Time Temp Pulse Resp B/P (MAP) Pulse Ox O2 Delivery O2 Flow Rate FiO2 06/15/17 16:40 95 18 93/56 (68) 98 Non-Rebreather 13.00 06/15/17 14:57 18 98 Room Air 06/15/17 14:02 102 12 10/67 (48) 98 Non-Rebreather 15.00 Physical Exam In mild respiratory distress, appears malnourished, she is on a nonrebreather, mildly tachypneic. PERRL, sunken eyeballs, pink conjunctivae, dry oral mucosa. Nose without bleeding Supple neck Borderline tachycardic but regular, no murmurs. Poor respiratory effort, occasional rhonchi on the left, no wheezing. No crackles. Decreased breath sounds bilaterally at bases. Normal bowel sounds, soft, non-tender, nondistended, no guarding. No edema. Awake, difficult to determine if she is oriented to place but appears to be oriented to self. Nonverbal, neurological exam limited by patient's ability to participate. She has right-sided hemiparesis which is chronic. Good handgrip on the left, follow some commands, closes her eyes on command. Laboratory Laboratory Tests Test 06/15/17 14:14 06/15/17 14:38 06/15/17 14:45 White Blood Count 17.7 Red Blood Count 4.22 Hemoglobin 12.5 Hematocrit 39.0 Mean Corpuscular Volume 92.4 Mean Corpuscular Hemoglobin 29.6 Mean Corpuscular Hemoglobin Concent 32.0 Red Cell Distribution Width 15.8 Platelet Count 309 Mean Platelet Volume 9.2 Neutrophils (%) (Auto) 89.2 Lymphocytes (%) (Auto) 4.2 Monocytes (%) (Auto) 5.9 Eosinophils (%) (Auto) 0.1 Basophils (%) (Auto) 0.6 Neutrophils # (Auto) 15.8 Lymphocytes # (Auto) 0.7 Monocytes # (Auto) 1.1 Eosinophils # (Auto) 0.0 Basophils # (Auto) 0.1 CBC Comment DIFF FINAL Differential Comment Prothrombin Time 10.7 Prothromb Time International Ratio 1.1 Activated Partial Thromboplast Time 24.0 Blood Urea Nitrogen 33 Creatinine 0.56 Random Glucose 139 Total Protein 6.2 Albumin 1.8 Calcium Level 8.6 Alkaline Phosphatase 104 Aspartate Amino Transf (AST/SGOT) 28 Alanine Aminotransferase (ALT/SGPT) 20 Total Bilirubin 0.3 Sodium Level 148 Potassium Level 4.4 Chloride Level 111 Carbon Dioxide Level 30.1 Anion Gap 7 Estimat Glomerular Filtration Rate 109 Total Creatine Kinase 35 Troponin I 0.12 B-Type Natriuretic Peptide 233 Thyroid Stimulating Hormone 3rd Gen 0.726 Urine Color YELLOW Urine Turbidity HAZY Urine pH 5.5 Urine Specific [place] 1.034 Urine Protein 30 Urine Glucose (UA) NEG Urine Ketones NEG Urine Occult Blood SMALL Urine Nitrite POS Urine Bilirubin NEG Urine Urobilinogen LESS THAN 2.0 Urine Leukocyte Esterase MOD Urine RBC 36 Urine WBC 48 Urine Squamous Epithelial Cells 3 Urine Calcium Oxalate Crystals RARE Urine Hyaline Casts 8 Urine White Blood Cell Casts 5 Urine Mucus MANY Urine Yeast (Budding) FEW Microscopic Urinalysis Comment CULTURE INDICATED Lactic Acid Level 1.4 Date/Time Source Procedure Growth Status 06/15/17 14:48 Blood Peripheral Aerobic Blood Culture Pending Received 06/15/17 14:48 Blood Peripheral Anaerobic Blood Culture Pending Received 06/15/17 14:38 Urine Random Urine Urine Culture Pending Received Result Diagram: 06/15/17 1414 06/15/17 1414 Imaging Last Impressions Chest X-Ray 06/15/17 1406 Signed Impressions: Service Date/Time: Thursday, June 15, 2017 14:11 - CONCLUSION: Suspected at least moderate left pleural effusion with some cupping atelectasis or consolidation the left base. Devin Osborn MD [place] VTE Risk Assessment Caprini VTE Risk Assessment: Mod/High Risk (score >= 2) Caprini Risk Assessment Model Point Value = 1 Point Value = 2 Point Value = 3 Point Value = 5 Age 41-60 Minor surgery BMI > 25 kg/m2 Swollen legs Varicose veins or History of unexplained or recurrent spontaneous Oral contraceptives or hormone replacement Sepsis (< 1 month) Serious lung disease, including pneumonia (< 1 month) Abnormal pulmonary function Acute myocardial infarction Congestive heart failure (< 1 month) History of inflammatory bowel disease Medical patient at bed rest Age 61-74 Arthroscopic surgery Major open surgery (> 45 min) Laparoscopic surgery (> 45 min) Malignancy Confined to bed (> 72 hours) Immobilizing plaster cast Central venous access Age >= 75 History of VTE Family history of VTE Factor V Leiden Prothrombin [id number] Lupus anticoagulant Anticardiolipin antibodies Elevated serum homocysteine Heparin-induced thrombocytopenia Other congenital or acquired thrombophilia Stroke (< 1 month) Elective arthroplasty Hip, pelvis, or leg fracture Acute spinal cord injury (< 1 month) Prophylaxis Regimen Total Risk Factor Score Risk Level Prophylaxis Regimen 0-1 Low Early ambulation 2 Moderate Order ONE of the following: *Sequential Compression Device (SCD) *Heparin 5000 units SQ BID 3-4 Higher Order ONE of the following medications: *Heparin 5000 units SQ TID *Enoxaparin/Lovenox 40 mg SQ daily (WT < 150 kg, CrCl > 30 mL/min) *Enoxaparin/Lovenox 30 mg SQ daily (WT < 150 kg, CrCl > 10-29 mL/min) *Enoxaparin/Lovenox 30 mg SQ BID (WT < 150 kg, CrCl > 30 mL/min) AND/OR *Sequential Compression Device (SCD) 5 or more Highest Order ONE of the following medications: *Heparin 5000 units SQ TID (Preferred with Epidurals) *Enoxaparin/Lovenox 40 mg SQ daily (WT < 150 kg, CrCl > 30 mL/min) *Enoxaparin/Lovenox 30 mg SQ daily (WT < 150 kg, CrCl > 10-29 mL/min) *Enoxaparin/Lovenox 30 mg SQ BID (WT < 150 kg, CrCl > 30 mL/min) AND *Sequential Compression Device (SCD) Assessment and Plan Assessment and Plan This is a 62-year-old female with history of CVA with right-sided hemiparesis, coronary artery disease, COPD, CHF previously admitted 2 weeks ago for pneumonia and CHF exacerbation, discharged to rehab, being readmitted for hypoxia. Hypoxic respiratory failure secondary to pneumonia versus CHF-most recent echocardiogram showed an ejection fraction of 45% from an echocardiogram from , BNP is slightly elevated, chest x-ray personally reviewed showed pleural effusion more on the left, no obvious consolidation. Keep on nonrebreather. Suspicion for possible recurrent pneumonia or new pneumonia with leukocytosis. Was previously on vancomycin and Zosyn, switched and discharged on Ceftin. Will restart on Zosyn. Patient is a poor historian, cannot get enough clinical history to clinch the diagnosis, will start on broad-spectrum antibiotics as above. No note of wheezing, we will not start any steroids at this point. May continue with budesonide nebulizations. Follow-up blood culture. Duo nebs around the clock and as needed. Systolic CHF exacerbation-start Lasix 40 mg twice a day, monitor BMP, monitor urine output, oxygen supplementation. Echocardiogram EF of 45%. Restart Coreg , digoxin, check digoxin levels History of CVA with right-sided hemiparesis-restart Plavix ? Altered mental status-looks like not very far from baseline, CT scan of the head is unremarkable. Neuro checks for now, she has CVA with right-sided weakness. ? UTI-urinalysis is positive with pyuria, follow-up urine culture, start Zosyn as above. Troponin elevation-recheck EKG and troponin serially. Moderate protein energy malnutrition-albumin is 1.8, total protein is 6.2, patient is cachectic. When patient is better, needs to be evaluated for swallow , will consult dietary for supplementation DVT prophylaxis: Lovenox Patient is DNR from [facility] and also DNR from previous admissions. Physician Certification 2 Midnight Certification Type: Admission for Inpatient Services Order for Inpatient Services The services are ordered in accordance with Medicare regulations or non- Medicare payer requirements, as applicable. In the case of services not specified as inpatient-only, they are appropriately provided as inpatient services in accordance with the 2-midnight benchmark. Estimated LOS (days): 2 days is the estimated time the patient will need to remain in the hospital, assuming treatment plan goals are met and no additional complications. Post-Hospital Plan: [facility] Sonia Lu MD Jun 15, 2017 17:31
[2017-06-15] MEDS ORDERED: NALOXONE HCL 0.4 MG/ML AMP IV PUSH PRN (18:00)
[2017-06-15] MEDS ORDERED: LACTULOSE SYRUP 20 GM/30 ML CUP PO PRN (18:00)
[2017-06-15] MEDS ORDERED: ENOXAPARIN SODIUM 30 MG/0.3 ML SYRINGE SQ SCH (18:00)
[2017-06-15] MEDS ORDERED: MAGNESIUM HYDROXIDE SUSP 30 ML CUP PO PRN (18:00)
[2017-06-15] MEDS ORDERED: BISACODYL 10 MG SUPP RECTAL PRN (18:00)
[2017-06-15] MEDS ORDERED: ACETAMINOPHEN 325 MG TAB PO PRN (18:00)
[2017-06-15] MEDS ORDERED: SENNOSIDES 8.6 MG TAB PO PRN (18:00)
[2017-06-15] MEDS ORDERED: SODIUM CHLORIDE 0.9% FLUSH 10 ML FLUSH IV FLUSH PRN (18:00)
[2017-06-15] MEDS ORDERED: RESP: ALBUTEROL 2.5 MG/IPRATROPIUM 0.5 MG NEB (PRN) NEB (18:15)
[2017-06-15] MEDS ORDERED: SODIUM CHLORID 0.9% 500 ML INJ 500 ML IV ONE (18:15)
[2017-06-15] MEDS: RESP: ALBUTEROL 2.5 MG/IPRATROPIUM 0.5 MG NEB (SCH) NEB (20:46)
[2017-06-15] MEDS: RESP: BUDESONIDE 0.5 MG/2 ML NEB NEB SCH (20:46)
[2017-06-15] MEDS: ATORVASTATIN 20 MG TAB PO SCH (21:04)
[2017-06-15] MEDS: FUROSEMIDE 40 MG/4 ML VIAL IV PUSH SCH (21:04)
[2017-06-15] MEDS: DOCUSATE SODIUM 50 MG/SENNA 8.6 MG TAB PO SCH (21:04)
[2017-06-15] MEDS: guaiFENesin E.R. 600 MG TAB PO SCH (21:05)
[2017-06-15] MEDS: SODIUM CHLORIDE 0.9% FLUSH 10 ML FLUSH IV FLUSH SCH (21:05)
[2017-06-15] MEDS: CARVEDILOL 6.25 MG TAB PO SCH (21:05)
[2017-06-16] VITALS (12 sets, daily range): BP systolic 111–134; BP diastolic 56–89; PULSE 90–119; RESP 14–34; TEMP 97.8–98.4; O2SAT 88–100
[2017-06-16 03:12] LABS: AUTOMATED NEUTROPHIL # 13.7 TH/MM3 (1.8-7.7); BASOPHIL # 0.1 TH/MM3 (0-0.2); BASOPHIL % 0.8 % (0.0-2.0); EOSINOPHIL % 0.2 % (0.0-4.0); HEMATOCRIT 39.5 % (35.0-46.0); HEMOGLOBIN 12.9 GM/DL (11.6-15.3); LYMPH % 4.4 % (9.0-44.0); LYMPHOCYTE # 0.7 TH/MM3 (1.0-4.8); MEAN CELL VOLUME 92.4 FL (80.0-100.0); MEAN CORPUSCULAR HEMOGLOBIN 30.1 PG (27.0-34.0); MEAN CORPUSCULAR HGB CONC 32.6 % (32.0-36.0); MEAN PLATELET VOLUME 8.9 FL (7.0-11.0); MONO % 5.9 % (0.0-8.0); MONOCYTE # 0.9 TH/MM3 (0-0.9); NEUT % 88.7 % (16.0-70.0); PLATELET COUNT 263 TH/MM3 (150-450); RED BLOOD COUNT 4.28 MIL/MM3 (4.00-5.30); RED CELL DISTRIBUTION WIDTH 15.4 % (11.6-17.2); WHITE BLOOD COUNT 15.4 TH/MM3 (4.0-11.0)
[2017-06-16 03:30] LABS: ALBUMIN 1.9 GM/DL (3.4-5.0); ALKALINE PHOSPHATASE 97 U/L (45-117); ALT (GPT) 18 U/L (10-53); AST (GOT) 23 U/L (15-37); BICARBONATE 35.5 MEQ/L (21.0-32.0); BLOOD UREA NITROGEN 26 MG/DL (7-18); CALCIUM 8.6 MG/DL (8.5-10.1); CHLORIDE 107 MEQ/L (98-107); CREATININE 0.52 MG/DL (0.50-1.00); GLOMERULAR FILTRATION RATE 119 ML/MIN (>89); GLUCOSE,RANDOM 114 MG/DL (74-106); SODIUM (NA) 150 MEQ/L (136-145); TOTAL BILIRUBIN ADULT 0.4 MG/DL (0.2-1.0); TOTAL PROTEIN 6.3 GM/DL (6.4-8.2)
[2017-06-16 03:43] LABS: DIGOXIN 0.7 NG/ML (0.8-2.0); TROPONIN I 0.08 NG/ML (0.02-0.05)
[2017-06-16] MEDS: RESP: BUDESONIDE 0.5 MG/2 ML NEB NEB SCH ×2 (07:44→20:23)
[2017-06-16] MEDS: RESP: ALBUTEROL 2.5 MG/IPRATROPIUM 0.5 MG NEB (SCH) NEB ×4 (07:44→23:25)
--- NOTE | 2017-06-16 08:30 | RADRPT ---
EXAM DATE/TIME: 06/16/2017 08:07 [facility] COMPARISON: CHEST SINGLE AP, June 15, 2017, 14:11. INDICATIONS : Shortness of breath. MEDICAL HISTORY : Stroke. Congestive heart failure. Hypertension. Glasses. Coronary artery disease. COPD. Hiatal hernia . Gastroesophageal reflux disease. Hyperlipidemia SURGICAL HISTORY : CABG. Pacemaker. Appendectomy. Cholecystectomy. ENCOUNTER: Initial ACUITY: 1 day PAIN SCORE: 0/10 LOCATION: Left chest. MEASUREMENTS: SKIN TO PARIETAL PLEURA: Inadequate fluid SKIN TO MAX SAFE DEPTH: Inadequate fluid ESTIMATED FLUID VOLUME: 241 cc FLUID COMPOSITION: complex FINDINGS: No marking was performed. CONCLUSION: Mild left pleural effusion. This was not marked. Devin Osborn MD on June 16, 2017 at 8:27 Board Certified Radiologist. This report was verified electronically.
[2017-06-16] MEDS: SODIUM CHLORIDE 0.9% FLUSH 10 ML FLUSH IV FLUSH SCH ×2 (09:00→20:35)
[2017-06-16] MEDS: CARVEDILOL 6.25 MG TAB PO SCH ×2 (09:00→20:35)
[2017-06-16] MEDS: DOCUSATE SODIUM 50 MG/SENNA 8.6 MG TAB PO SCH (09:00)
[2017-06-16] MEDS: GABAPENTIN 300 MG CAP PO SCH ×3 (11:00→18:00)
[2017-06-16] MEDS: FUROSEMIDE 40 MG/4 ML VIAL IV PUSH SCH ×2 (11:00→20:35)
[2017-06-16] MEDS: CLOPIDOGREL 75 MG TAB PO SCH (11:00)
[2017-06-16] MEDS: guaiFENesin E.R. 600 MG TAB PO SCH ×2 (11:00→20:35)
[2017-06-16] MEDS: PANTOPRAZOLE SOD 40 MG DELAYED RELEASE TAB PO SCH (11:00)
[2017-06-16] MEDS: DIGOXIN 0.125 MG TAB PO SCH (11:01)
--- NOTE | 2017-06-16 12:13 | HHI.PR ---
Subjective Remarks Follow-up sepsis /healthcare associated pneumonia/UTI/acute hypoxic respiratory failure June 16, 2017-patient seen and examined, currently afebrile with improving respiratory symptoms of shortness of breath. Alert but pleasantly confused. Chest ultrasound with evidence of 240+ cc left pleural effusion Objective Vitals Vital Signs Date Time Temp Pulse Resp B/P (MAP) Pulse Ox O2 Delivery O2 Flow Rate FiO2 06/16/17 10:00 118 18 126/80 (95) 95 Room Air 06/16/17 07:46 97 Nasal Cannula 3.00 06/16/17 06:46 95 16 127/71 (89) 97 Room Air 06/16/17 01:45 90 14 134/58 (83) 94 06/16/17 01:00 90 14 112/56 (74) 92 06/15/17 23:30 88 16 80/56 (64) 98 Nasal Cannula 06/15/17 23:15 Automatic Cuff 06/15/17 22:45 88 16 82/60 (67) 93 Nasal Cannula 06/15/17 20:49 100 Nasal Cannula 3.00 06/15/17 20:38 80 16 90/56 (67) 99 Nasal Cannula 3.00 06/15/17 19:07 82 16 93/54 (67) 98 Nasal Cannula 3.00 06/15/17 18:50 80 18 89/50 (63) 98 Room Air 06/15/17 18:35 98.1 78 15 85/55 (65) 99 Nasal Cannula 3.00 06/15/17 18:09 86 18 80/53 (62) 97 Nasal Cannula 2.00 06/15/17 18:08 88 18 71/49 (56) 98 Nasal Cannula 2.00 06/15/17 17:34 16 13 Non-Rebreather 06/15/17 16:40 97.5 95 18 93/56 (68) 98 Non-Rebreather 13.00 06/15/17 14:57 18 98 Room Air 06/15/17 14:02 102 12 (48) 98 Non-Rebreather 15.00 I/O 06/15/17 06/15/17 06/15/17 06/16/17 06/16/17 06/16/17 07:00 15:00 23:00 07:00 15:00 23:00 Intake Total 900 ml Output Total 1 ml Balance 899 ml Intake IV Total 900 ml Output Stool Total 1 ml # Voids 1 1 # Bowel Movements 1 Result Diagram: 06/16/17 0252 06/16/17 0252 Imaging Last Impressions Chest Ultrasound 06/16/17 0000 Signed Impressions: Service Date/Time: Friday, June 16, 2017 08:07 - CONCLUSION: Mild left pleural effusion. This was not marked. Devin Osborn MD Chest X-Ray 06/15/17 1406 Signed Impressions: Service Date/Time: Thursday, June 15, 2017 14:11 - CONCLUSION: Suspected at least moderate left pleural effusion with some cupping atelectasis or consolidation the left base. Devin Osborn MD Objective Remarks GENERAL: NAD but pleasantly confused SKIN: Warm and dry. HEAD: Normocephalic. EYES: No scleral icterus. No injection or drainage. NECK: Supple, trachea midline. No JVD or lymphadenopathy. CARDIOVASCULAR: Regular rate and rhythm without murmurs, gallops, or rubs. RESPIRATORY: Breath sounds equal bilaterally. No accessory muscle use. GASTROINTESTINAL: Abdomen soft, non-tender, nondistended. MUSCULOSKELETAL: No cyanosis, or edema. Right sided weakness BACK: Nontender without obvious deformity. No CVA tenderness. A/P Problem List: (1) Sepsis ICD Code: A41.9 - Sepsis, unspecified organism (2) UTI (urinary tract infection) ICD Code: N39.0 - Urinary tract infection, site not specified (3) HCAP (healthcare-associated pneumonia) ICD Code: J18.9 - Pneumonia, unspecified organism (4) Pleural effusion, left ICD Code: J90 - Pleural effusion, not elsewhere classified Status: Acute Assessment and Plan 62-year-old female with Sepsis on presentation Secondary to UTI and HCAP Status post Levaquin IV 1 in ED, will resume Levaquin 750 mg IV daily Check urinary Legionella and pneumococcal antigens Monitor cultures Healthcare associated pneumonia Start Levaquin 750 mg IV daily Bronchodilator as needed Maintain oxygen saturation above 88-92% UTI Levaquin IV pending urine culture Left pleural effusion Chest ultrasound ordered this morning with evidence of 241 cc Currently on IV Lasix Hypokalemia Give potassium 75 mEq 1 now and monitor electrolytes Acute on chronic respiratory failure hypoxic Multi-factorial, combination of left pleural effusion, HCAP Improving and continue treatment as above Systolic CHF exacerbation- Lasix 40 mg daily. Echocardiogram EF of 45%. Continue Coreg, digoxin History of CVA with right-sided hemiparesis- On Plavix Moderate protein energy malnutrition-albumin is 1.8, total protein is 6.2, patient is cachectic. consult dietary for supplementation DVT prophylaxis: Omid Pacheco MD Jun 16, 2017 12:13
[2017-06-16] MEDS ORDERED: POTASSIUM CHLORIDE 25 MEQ EFFERVESCENT TAB PO ONE (12:15)
[2017-06-16] MEDS: LEVOFLOXACIN 750 MG PREMIX INJ 150 ML IV SCH (15:07)
[2017-06-16] MEDS ORDERED: METOPROLOL TARTRATE 5 MG/5 ML VIAL IV PUSH PRN (17:15)
[2017-06-16] MEDS ORDERED: LORazepam 2 MG/ML VIAL IV PRN (17:15)
[2017-06-16] MEDS ORDERED: RESP: ALBUTEROL 2.5 MG/IPRATROPIUM 0.5 MG NEB (PRN) NEB (17:15)
[2017-06-16] MEDS ORDERED: METOPROLOL TARTRATE 5 MG/5 ML VIAL IV PUSH ONE (17:15)
[2017-06-16] MEDS: ATORVASTATIN 20 MG TAB PO SCH (20:35)
--- NOTE | 2017-06-16 20:55 | EKG ---
Date Performed: 06/16/2017 Time Performed: 03:07:56 PTAGE: 62 years EKG: ELECTRONIC VENTRICULAR PACEMAKER ABNORMAL RHYTHM ECG Sinus rhythm PREVIOUS TRACING : 06/15/2017 20.09 Since the previous tracing, no significant change not ed DOCTOR: Fer Jones Interpretating Date/Time 06/16/2017 20:55:40
--- NOTE | 2017-06-16 21:11 | EKG ---
Date Performed: 06/15/2017 Time Performed: 20:09:12 PTAGE: 62 years EKG: ELECTRONIC VENTRICULAR PACEMAKER ABNORMAL RHYTHM ECG PREVIOUS TRACING : 06/15/2017 14.05 Since the previous tracing, no significant change noted DOCTOR: Fer Jones Interpretating Date/Time 06/16/2017 21:10:24
--- NOTE | 2017-06-16 21:23 | EKG ---
Date Performed: 06/15/2017 Time Performed: 14:05:41 PTAGE: 62 years EKG: ELECTRONIC VENTRICULAR PACEMAKER ABNORMAL RHYTHM ECG NO PREVIOUS TRACING DOCTOR: Fer Jones Interpretating Date/Time 06/16/2017 21:22:00
--- NOTE | 2017-06-16 21:50 | EKG ---
Date Performed: 06/16/2017 Time Performed: 17:19:58 PTAGE: 62 years EKG: Marked baseline artifact Sinus tachycardia. Inferior infarct - age undetermined Left ventri cular hypertrophy Nonspecific T wave changes Abnormal ECG Compared to prior electrocardiogram, rate h as increased DOCTOR: Andrey Calvo Interpretating Date/Time 06/16/2017 21:49:34
[2017-06-16 22:41] LABS: MAGNESIUM 1.6 MG/DL (1.5-2.5)
[2017-06-17] VITALS (11 sets, daily range): BP systolic 94–142; BP diastolic 64–90; PULSE 108–129; RESP 24–31; TEMP 97.4–98.7; O2SAT 93–100
[2017-06-17] MEDS: RESP: ALBUTEROL 2.5 MG/IPRATROPIUM 0.5 MG NEB (SCH) NEB ×6 (03:20→23:17)
[2017-06-17] MEDS: RESP: BUDESONIDE 0.5 MG/2 ML NEB NEB SCH ×2 (07:41→19:47)
[2017-06-17] MEDS: CLOPIDOGREL 75 MG TAB PO SCH (08:33)
[2017-06-17] MEDS: GABAPENTIN 300 MG CAP PO SCH ×3 (08:33→17:05)
[2017-06-17] MEDS: SODIUM CHLORIDE 0.9% FLUSH 10 ML FLUSH IV FLUSH SCH ×2 (08:34→20:41)
[2017-06-17] MEDS: CARVEDILOL 6.25 MG TAB PO SCH ×2 (08:34→20:41)
[2017-06-17] MEDS: PANTOPRAZOLE SOD 40 MG DELAYED RELEASE TAB PO SCH (08:34)
[2017-06-17] MEDS: guaiFENesin E.R. 600 MG TAB PO SCH ×2 (08:34→20:42)
[2017-06-17] MEDS: FUROSEMIDE 40 MG/4 ML VIAL IV PUSH SCH ×2 (08:34→20:41)
[2017-06-17] MEDS: DIGOXIN 0.125 MG TAB PO SCH (08:34)
[2017-06-17] MEDS: LEVOFLOXACIN 750 MG PREMIX INJ 150 ML IV SCH (12:41)
--- NOTE | 2017-06-17 14:55 | HHI.PR ---
Subjective Remarks Follow-up sepsis /healthcare associated pneumonia/UTI/acute hypoxic respiratory failure June 16, 2017-patient seen and examined, currently afebrile with improving respiratory symptoms of shortness of breath. Alert but pleasantly confused. Chest ultrasound with evidence of 240+ cc left pleural effusion June 17, 2017-patient seen and examined, +SOB and requiring NPR;+obtunded. afebrile Objective Vitals Vital Signs Date Time Temp Pulse Resp B/P (MAP) Pulse Ox O2 Delivery O2 Flow Rate FiO2 06/17/17 12:00 97.4 108 26 98/76 (83) 97 06/17/17 08:00 96 Simple Mask 8.00 06/17/17 08:00 98.7 122 28 122/67 (85) 99 06/17/17 07:41 100 Simple Mask 8.00 06/17/17 06:01 118 31 107/90 (96) 99 06/17/17 03:22 100 Simple Mask 8.00 06/17/17 02:01 120 27 94/64 (74) 99 06/16/17 23:29 96 Simple Mask 8.00 06/16/17 22:01 119 34 127/70 (89) 93 06/16/17 20:26 99 Simple Mask 8.00 06/16/17 19:00 96 Simple Mask 8.00 06/16/17 18:00 112 06/16/17 16:00 98.4 119 30 130/89 (103) 88 06/16/17 16:00 88 Partial Non-Rebreather 2.00 06/16/17 16:00 119 I/O 06/16/17 06/16/17 06/16/17 06/17/17 06/17/17 06/17/17 07:00 15:00 23:00 07:00 15:00 23:00 Intake Total 240 ml Balance 240 ml Intake Oral 240 ml # Voids 1 # Bowel Movements 1 Result Diagram: 06/16/17 0252 06/16/172055 Imaging Last Impressions Chest Ultrasound 06/16/17 0000 Signed Impressions: Service Date/Time: Friday, June 16, 2017 08:07 - CONCLUSION: Mild left pleural effusion. This was not marked. Devin Osborn MD Chest X-Ray 06/15/17 1406 Signed Impressions: Service Date/Time: Thursday, June 15, 2017 14:11 - CONCLUSION: Suspected at least moderate left pleural effusion with some cupping atelectasis or consolidation the left base. Devin Osborn MD Objective Remarks GENERAL: obtunded SKIN: Warm and dry. HEAD: Normocephalic. EYES: No scleral icterus. No injection or drainage. NECK: Supple, trachea midline. No JVD or lymphadenopathy. CARDIOVASCULAR: Regular rate and rhythm without murmurs, gallops, or rubs. RESPIRATORY: Breath sounds decrease bilaterally. No accessory muscle use. GASTROINTESTINAL: Abdomen soft, non-tender, nondistended. MUSCULOSKELETAL: No cyanosis, or edema. Right sided weakness BACK: Nontender without obvious deformity. No CVA tenderness. A/P Problem List: (1) Sepsis ICD Code: A41.9 - Sepsis, unspecified organism (2) UTI (urinary tract infection) ICD Code: N39.0 - Urinary tract infection, site not specified (3) HCAP (healthcare-associated pneumonia) ICD Code: J18.9 - Pneumonia, unspecified organism (4) Pleural effusion, left ICD Code: J90 - Pleural effusion, not elsewhere classified Status: Acute Assessment and Plan 62-year-old female with Sepsis on presentation Secondary to UTI and HCAP Status post Levaquin IV 1 in ED, continue Levaquin 750 mg IV daily Check urinary Legionella and pneumococcal antigens Monitor cultures Healthcare associated pneumonia Continue Levaquin 750 mg IV daily Bronchodilator as needed Maintain oxygen saturation above 88-92% UTI Levaquin IV pending urine culture Left pleural effusion Chest ultrasound ordered this morning with evidence of 241 cc Currently on IV Lasix Hypokalemia Resolved s/p potassium 75 mEq 1 and monitor electrolytes Acute on chronic respiratory failure hypoxic Multi-factorial, combination of left pleural effusion, HCAP Systolic CHF exacerbation- Lasix 40 mg daily. Echocardiogram EF of 45%. Continue Coreg, digoxin History of CVA with right-sided hemiparesis- On Plavix Moderate protein energy malnutrition-albumin is 1.8, total protein is 6.2, patient is cachectic. consult dietary for supplementation DVT prophylaxis: Lovenox Prognosis: Overall guarded Omid Manzo MD June 17, 2017 14:55
--- NOTE | 2017-06-17 16:16 | PD.CONS ---
Consult Service Palliative Care Consult Requested By Dr. Manzo . Primary Care Physician Unknown Reason for Consultation a. To assist with evaluation and management of symptoms including: Shortness of breath, debility b. To assist medical decision maker(s) with: better understanding of current medical conditions; weighing benefits/burdens of medical treatment options; making medical treatment decisions. 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 Patient was brought in by EMS to the ER on 06/15/17 from [facility] for further evaluation of respiratory distress. Patient was recently hospitalized from - 06/06/2017 and was treated for respiratory failure secondary to acute congestive heart failure exacerbation and pneumonia. Patient last echocardiogram was on 06/04/17 showed an ejection fraction of 45%. Patient brought in a DNR form from the shelter. Patient is known to palliative care and during his last hospitalization she made himself a DNR. ER course: * Vital signs: Pulse 95, respirations 18, BP 93/56, O2 saturation 98% on 15 L nonrebreather * Chest x-ray revealed suspected at least moderate left pleural effusion with some cupping atelectasis or consolidation in the left base * EKG revealed electronic ventricular pacemaker abnormal rhythm. * Laboratory workup revealed WBC 17.7, hemoglobin 12.5, hematocrit 39.0, platelet count 309, sodium 148, potassium 4.4, BUN/creatinine 33/0.56, random glucose 139, AST 28, ALT 20, alkaline phosphatase, troponin 0 0.12, BNP 233, total protein 6.2, albumin 1.6, TSH 0.726. * UA positive for WBC and bacteria. Urine culture growing pseudomonas aeruginosa * Blood cultures-no growth in 2 days * Patient admitted for further evaluation and treatment under the services of [facility] Hospital[facility] Patient was started on antibiotics. Chest ultrasound on 06/16/17 revealed mild left pleural effusion. 06/16/17 a hospice consult was placed. Palliative care consulted 06/17/17 to assist with symptom management and establishing goals of care. No recent laboratory workup. Patient is afebrile but has been sinus tachycardic heart rate from low 100s-120s and tachypneic with respiration rate in the mid 30s. Patient seen and examined in [facility]. Patient lethargic, awake, aphasic, following simple commands. Patient communicating with nodding head for "yes" or shaking of head for "no". Addressed code status, asked patient if she would like to be intubated and placed on mechanical ventilation in the event that her respiratory status worsens, patient shook head fo no and asked patient if she would want medical staff to perform CPR in the event that she is in cardiac arrest, patient shook her head for no. Explained to patient that if the above interventions are not carried out, she will . Repeated the questions again and patient`s responses did not change. Attempted to call patient`s brother with no success. Telephone call to patient`s daughter Laury Irwin, brief update of patient`s status, requested her to notify her uncle that patient is critically ill in the hospital. Telephone conversation with patient`s brother Genaro Hazel who is her health care surrogate. Updated him on patient`s current medical condition. Patient`s brother voiced concern that hospice was consulted without him contacted or informed of his sisters condition. Addressed code status and notified patients brother of patient`s responses and he also elected DNR/DNI for patient. Explained to patient`s brother that patient was critically ill and is currently in intensive care unit. Patient`s brother expressed that he will inform patient`s daughter and son that patient is critically ill. . Function/Cognitive Trajectory Patient has a history of CVA with aphasia and residual hemiparesis. She has been a resident at [facility] for the past 3-4 months and requires assistance with all his ADLs. Patient has a wheelchair at longterm facility and requires 2 person assist with transfers. Patient was recently hospitalized at [facility] from 05/30- 06/06 and was treated for pneumonia severe sepsis, acute respiratory failure and COPD exacerbation. Patient was also hospitalized at [facility] from 03/31-04/09/17 for sepsis PNA and also had a Stage 11 decubitus ulcer- and was discharged to [facility]. . Review of Systems ROS Limitations: Other (lethargic and aphasic) Constitutional: DENIES: Weight loss Eyes: DENIES: Eye inflammation Ears, nose, mouth, throat: DENIES: Nasal discharge Respiratory: COMPLAINS OF: Wheezing, Shortness of breath Cardiovascular: COMPLAINS OF: Dyspnea on Exertion, DENIES: Lower Extremity Edema Genitourinary: COMPLAINS OF: Urinary incontinence Integumentary: DENIES: Rash Hematologic/Lymphatics: COMPLAINS OF: Bruising Neurologic: COMPLAINS OF: Speech Problems (aphasic) Other ROS: ROS obtained from EMR and clinical observation. . Past Family Social History Coded Allergies: adhesive (Unverified Allergy, Severe, 05/29/17) aspirin (Unverified Allergy, Severe, 05/29/17) diatrizoate meglumine (Unverified Allergy, Severe, Hives, 05/29/17) enoxaparin (Unverified Allergy, Severe, 05/29/17) HIT POSITIVE gadobenic acid (Unverified Allergy, Severe, Hives, 05/29/17) gadodiamide (Unverified Allergy, Severe, Hives, 05/29/17) gadoteridol (Unverified Allergy, Severe, Hives, 05/29/17) heparin (porcine) (Unverified Allergy, Severe, 05/29/17) HIT POSITIVE iodine (Unverified Allergy, Severe, 05/29/17) iodixanol (Unverified Allergy, Severe, Hives, 05/29/17) iohexol (Unverified Allergy, Severe, Hives, 05/29/17) sodium iodide (Unverified Allergy, Severe, 05/29/17) sodium iodide (Unverified Allergy, Severe, 05/29/17) sulfamethoxazole (Unverified Allergy, Severe, 05/29/17) trimethoprim (Unverified Allergy, Severe, 05/29/17) Past Medical History Obtained from EMR Coronary artery disease s/p bypass grafting and AICD placement Hypertension Hyperlipidemia CVA with residual right-sided hemiparesis Myocardial infarction COPD Atrial fibrillation Congestive heart failure Heparin-induced thrombocytopenia . Past Surgical History Obtained from EMR Multiple stent placements AICD placement Carotid endarterectomy Cholecystectomy Appendectomy Bilateral tubal ligation . Reported Medications Tramadol (Tramadol HCl) 50 Mg Tab 50 Mg PO BID PRN Duoneb (Ipratropium-Albuterol Neb) 0.5-2.5 Mg/3 Ml Neb 3 Ml NEB Q6HR PRN Budesonide Neb 0.5 Mg/2 Ml Neb 0.5 Mg NEB Q12HR NEB Carvedilol 6.25 Mg Tab 6.25 Mg PO BID Mucus Relief ER (Guaifenesin) 600 Mg Tab 1,200 Mg PO BID Gabapentin 300 Mg Cap 300 Mg PO TID Brovana Neb (Arformoterol Neb) 15 Mcg/2 Ml Vial 2 Ml NEB BID Atorvastatin (Atorvastatin Calcium) 20 Mg Tab 20 Mg PO HS Clopidogrel (Clopidogrel Bisulfate) 75 Mg Tab 75 Mg PO DAILY Digoxin 0.125 Mg Tab 125 Mcg PO DAILY Protonix (Pantoprazole Sodium) 40 Mg Tab 40 Mg PO DAILY . Current Medications Medications (Trade) Dose Ordered Sig/Yesenia Route Start Time Stop Time Status Last Admin (NS Flush) 2 ml UNSCH PRN IV FLUSH 06/15/17 18:00 (NS Flush) 2 ml BID IV FLUSH 06/15/17 21:00 06/17/17 08:34 (Tylenol) 650 mg Q4H PRN PO 06/15/17 18:00 (Narcan Inj) 0.4 mg UNSCH PRN IV PUSH 06/15/17 18:00 (Milk Of Magnesia Liq) 30 ml Q12H PRN PO 06/15/17 18:00 (Lasix Inj) 40 mg BID IV PUSH 06/15/17 21:00 06/17/17 08:34 (Lipitor) 20 mg HS PO 06/15/17 21:00 06/16/17 20:35 (Pulmicort Respule Neb) 0.5 mg Q12HR NEB NEB 06/15/17 20:00 06/17/17 07:41 (Coreg) 6.25 mg BID PO 06/15/17 21:00 06/17/17 08:34 (Plavix) 75 mg DAILY PO 06/16/17 09:00 06/17/17 08:33 (Lanoxin) 0.125 mg DAILY PO 06/16/17 09:00 06/17/17 08:34 (Neurontin) 300 mg TID PO 06/16/17 09:00 06/17/17 12:40 (Mucinex Er) 1,200 mg BID PO 06/15/17 21:00 06/17/17 08:34 (Protonix) 40 mg DAILY PO 06/16/17 09:00 06/17/17 08:34 Levofloxacin/ Dextrose 150 ml @ 100 mls/hr Q24H IV 4/30/18 13:00 06/17/17 12:41 (Lopressor Inj) 5 mg Q8H PRN IV PUSH 06/16/17 17:15 (Ativan Inj) 0.5 mg Q8H PRN IV 06/16/17 17:15 06/16/17 17:16 (Duoneb Neb) 1 ampule Q4HR NEB NEB 06/16/17 20:00 06/17/17 11:26 (Duoneb Neb) 1 ampule Q2HR NEB PRN NEB 06/16/17 17:15 Family History Mother- , had COPD Father- had a heart attack . Substance Use Tobacco: History of smoking Alcohol: History of alcohol Prescription med abuse: None reported Illicits: None reported . Psychosocial History Patient was born and raised in [place]. Patient is . She had 3 children, 2 sons and 1 daughter. One of her sons` is and her other son is Saman and her daughter is Laury. Highest level of education is high school. 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 . Spiritual/Cultural Factors Patient is Alevism . Health Care Surrogate: Copy in medical record Durable Power of Recoverer: Completed, but not made available Date completed: 06/02/2017 . Health Care Surrogate(s): Brother-Ilir Lam [phone] / [phone] cell . Ethical and Legal Issues None identified at this time . Physical Exam Vital Signs Date Time Temp Pulse Resp B/P (MAP) Pulse Ox O2 Delivery O2 Flow Rate FiO2 06/17/17 12:00 97.4 108 26 98/76 (83) 97 06/17/17 08:00 96 Simple Mask 8.00 06/17/17 08:00 98.7 122 28 122/67 (85) 99 06/17/17 07:41 100 Simple Mask 8.00 06/17/17 06:01 118 31 107/90 (96) 99 06/17/17 03:22 100 Simple Mask 8.00 06/17/17 02:01 120 27 94/64 (74) 99 06/16/17 23:29 96 Simple Mask 8.00 06/16/17 22:01 119 34 127/70 (89) 93 06/16/17 20:26 99 Simple Mask 8.00 06/16/17 19:00 96 Simple Mask 8.00 06/16/17 18:00 112 06/16/17 16:00 98.4 119 30 130/89 (103) 88 06/16/17 16:00 88 Partial Non-Rebreather 2.00 06/16/17 16:00 119 Exam CONSTITUTIONAL/GENERAL: This is a cachectic patient, in respiratory distress. TUBES/LINES/DRAINS:PIV, Morton catheter, face mask SKIN: No jaundice, rashes, or lesions. Ecchymoses on upper extremities. No wounds seen anteriorly. Cool bilateral lower extremities. HEAD: Atraumatic. Normocephalic. EYES: Pupils equal and round and reactive. Extraocular motions intact. No scleral icterus. No injection or drainage. Fundi not examined. ENT: Hearing grossly normal. Nose without bleeding or purulent drainage. Dry oral mucosa NECK: Trachea midline. Supple, nontender. CARDIOVASCULAR: Sinus tachycardic HR 124,No audible murmurs, gallops, or rubs. No JVD. Peripheral pulses symmetric. RESPIRATORY/CHEST:Labored respirations. Rhonchi to auscultation in all cuadra. GASTROINTESTINAL: Abdomen soft, non-tender, nondistended. No guarding. Hypoactive Bowel sounds GENITOURINARY: Without palpable bladder distension. Morton catheter in place. MUSCULOSKELETAL: Extremities without clubbing, cyanosis, or edema. Contracture to right hand and foot drop to RLE NEUROLOGICAL: Awake, lethargic and aphasic. Follows commands with LUE and LLE. Right sided hemiparesis PSYCHIATRIC: Unable to assess. Calm. Diagnostic Tests Laboratory Laboratory Tests Test 06/15/17 14:14 06/15/17 14:38 06/15/17 14:45 06/15/17 20:25 White Blood Count 17.7 TH/MM3 (4.0-11.0) Red Blood Count 4.22 MIL/MM3 (4.00-5.30) Hemoglobin 12.5 GM/DL (11.6-15.3) Hematocrit 39.0 % (35.0-46.0) Mean Corpuscular Volume 92.4 FL (80.0-100.0) Mean Corpuscular Hemoglobin 29.6 PG (27.0-34.0) Mean Corpuscular Hemoglobin Concent 32.0 % (32.0-36.0) Red Cell Distribution Width 15.8 % (11.6-17.2) Platelet Count 309 TH/MM3 (150-450) Mean Platelet Volume 9.2 FL (7.0-11.0) Neutrophils (%) (Auto) 89.2 % (16.0-70.0) Lymphocytes (%) (Auto) 4.2 % (9.0-44.0) Monocytes (%) (Auto) 5.9 % (0.0-8.0) Eosinophils (%) (Auto) 0.1 % (0.0-4.0) Basophils (%) (Auto) 0.6 % (0.0-2.0) Neutrophils # (Auto) 15.8 TH/MM3 (1.8-7.7) Lymphocytes # (Auto) 0.7 TH/MM3 (1.0-4.8) Monocytes # (Auto) 1.1 TH/MM3 (0-0.9) Eosinophils # (Auto) 0.0 TH/MM3 (0-0.4) Basophils # (Auto) 0.1 TH/MM3 (0-0.2) CBC Comment DIFF FINAL Differential Comment Prothrombin Time 10.7 SEC (9.8-11.6) Prothromb Time International Ratio 1.1 RATIO Activated Partial Thromboplast Time 24.0 SEC (24.3-30.1) Blood Urea Nitrogen 33 MG/DL (7-18) Creatinine 0.56 MG/DL (0.50-1.00) Random Glucose 139 MG/DL (74-106) Total Protein 6.2 GM/DL (6.4-8.2) Albumin 1.8 GM/DL (3.4-5.0) Calcium Level 8.6 MG/DL (8.5-10.1) Alkaline Phosphatase 104 U/L (45-117) Aspartate Amino Transf (AST/SGOT) 28 U/L (15-37) Alanine Aminotransferase (ALT/SGPT) 20 U/L (10-53) Total Bilirubin 0.3 MG/DL (0.2-1.0) Sodium Level 148 MEQ/L (136-145) Potassium Level 4.4 MEQ/L (3.5-5.1) Chloride Level 111 MEQ/L (98-107) Carbon Dioxide Level 30.1 MEQ/L (21.0-32.0) Anion Gap 7 MEQ/L (5-15) Estimat Glomerular Filtration Rate 109 ML/MIN (>89) Total Creatine Kinase 35 U/L (26-192) Troponin I 0.12 NG/ML (0.02-0.05) 0.11 NG/ML (0.02-0.05) B-Type Natriuretic Peptide 233 PG/ML (0-100) Thyroid Stimulating Hormone 3rd Gen 0.726 uIU/ML (0.358-3.740) Urine Color YELLOW (YELLW/STRAW) Urine Turbidity HAZY (CLEAR) Urine pH 5.5 (5.0-8.5) Urine Specific [place] 1.034 (1.002-1.035) Urine Protein 30 mg/dL (NEG-TRACE) Urine Glucose (UA) NEG mg/dL (NEG) Urine Ketones NEG mg/dL (NEG) Urine Occult Blood SMALL (NEG) Urine Nitrite POS (NEG) Urine Bilirubin NEG (NEG) Urine Urobilinogen LESS THAN 2.0 MG/DL (LESS Urine Leukocyte Esterase MOD (NEG) Urine RBC 36 /hpf (0-3) Urine WBC 48 /hpf (0-5) Urine Squamous Epithelial Cells 3 /hpf (0-5) Urine Calcium Oxalate Crystals RARE /hpf (NONE) Urine Hyaline Casts 8 /lpf (RARE) Urine White Blood Cell Casts 5 /lpf (NONE) Urine Mucus MANY /lpf (OCC) Urine Yeast (Budding) FEW (NONE) Microscopic Urinalysis Comment CULTURE INDICATED Lactic Acid Level 1.4 mmol/L (0.4-2.0) Test 06/16/17 02:52 06/16/17 18:00 06/16/17 20:56 White Blood Count 15.4 TH/MM3 (4.0-11.0) Red Blood Count 4.28 MIL/MM3 (4.00-5.30) Hemoglobin 12.9 GM/DL (11.6-15.3) Hematocrit 39.5 % (35.0-46.0) Mean Corpuscular Volume 92.4 FL (80.0-100.0) Mean Corpuscular Hemoglobin 30.1 PG (27.0-34.0) Mean Corpuscular Hemoglobin Concent 32.6 % (32.0-36.0) Red Cell Distribution Width 15.4 % (11.6-17.2) Platelet Count 263 TH/MM3 (150-450) Mean Platelet Volume 8.9 FL (7.0-11.0) Neutrophils (%) (Auto) 88.7 % (16.0-70.0) Lymphocytes (%) (Auto) 4.4 % (9.0-44.0) Monocytes (%) (Auto) 5.9 % (0.0-8.0) Eosinophils (%) (Auto) 0.2 % (0.0-4.0) Basophils (%) (Auto) 0.8 % (0.0-2.0) Neutrophils # (Auto) 13.7 TH/MM3 (1.8-7.7) Lymphocytes # (Auto) 0.7 TH/MM3 (1.0-4.8) Monocytes # (Auto) 0.9 TH/MM3 (0-0.9) Eosinophils # (Auto) 0.0 TH/MM3 (0-0.4) Basophils # (Auto) 0.1 TH/MM3 (0-0.2) CBC Comment DIFF FINAL Differential Comment Blood Urea Nitrogen 26 MG/DL (7-18) Creatinine 0.52 MG/DL (0.50-1.00) Random Glucose 114 MG/DL (74-106) Total Protein 6.3 GM/DL (6.4-8.2) Albumin 1.9 GM/DL (3.4-5.0) Calcium Level 8.6 MG/DL (8.5-10.1) Alkaline Phosphatase 97 U/L (45-117) Aspartate Amino Transf (AST/SGOT) 23 U/L (15-37) Alanine Aminotransferase (ALT/SGPT) 18 U/L (10-53) Total Bilirubin 0.4 MG/DL (0.2-1.0) Sodium Level 150 MEQ/L (136-145) Potassium Level 3.1 MEQ/L (3.5-5.1) 4.4 MEQ/L (3.5-5.1) Chloride Level 107 MEQ/L (98-107) Carbon Dioxide Level 35.5 MEQ/L (21.0-32.0) Anion Gap 8 MEQ/L (5-15) Estimat Glomerular Filtration Rate 119 ML/MIN (>89) Troponin I 0.08 NG/ML (0.02-0.05) Digoxin Level 0.7 NG/ML (0.8-2.0) Nasal Screen MRSA (PCR) MRSA NOT DETECTED (NOT Magnesium Level 1.6 MG/DL (1.5-2.5) Result Diagram: 06/16/1725106/16/172055 Microbiology Microbiology Date/Time Source Procedure Growth Status 06/15/17 14:48 Blood Peripheral Aerobic Blood Culture - Preliminary NO GROWTH IN 2 DAYS Resulted 06/15/17 14:48 Blood Peripheral Anaerobic Blood Culture - Preliminary NO GROWTH IN 2 DAYS Resulted 06/15/17 14:40 Blood Peripheral Aerobic Blood Culture - Preliminary NO GROWTH IN 2 DAYS Resulted 06/15/17 14:40 Blood Peripheral Anaerobic Blood Culture - Preliminary NO GROWTH IN 2 DAYS Resulted 06/15/17 14:38 Urine Random Urine Urine Culture - Final Pseudomonas Aeruginosa Complete Imaging Last Impressions Chest Ultrasound 06/16/17 0000 Signed Impressions: Service Date/Time: Friday, June 16, 2017 08:07 - CONCLUSION: Mild left pleural effusion. This was not marked. Devin Osborn MD Chest X-Ray 06/15/17 1406 Signed Impressions: Service Date/Time: Thursday, June 15, 2017 14:11 - CONCLUSION: Suspected at least moderate left pleural effusion with some cupping atelectasis or consolidation the left base. Devin Osborn MD Patient/Family Conference Family Conference Location: Telephone Issues Discussed: * Palliative care role, purpose, approach * Additional medical, psychosocial, and spiritual history * Patients general health, functional status, and cognitive changes in the months leading up to the current hospitalization * Patient/family understanding of the current medical problems * Patient/family understanding of prognosis * Patients goals of care as best understood from advance directives and/or conversations and/or values * Current medical treatment options and benefits/burdens of those options * Likely scenarios comparing ongoing aggressive care with a transition to comfort measures only * Questions answered to the best of my ability * Palliative care contact information provided Assessment and Plan Disease Oriented Problem List: (1) Sepsis (2) HCAP (healthcare-associated pneumonia) (3) Pleural effusion, left (4) UTI (urinary tract infection) Symptom Scale: (1) Shortness of breath 0-10 Scale: Unable to quantify Comment: Patient has history of COPD and currently his pneumonia with left pleural effusion. . (2) Debility 0-10 Scale: Unable to quantify Comment: Progressive . Pertinent Non-Medical Issues Psychosocial:Patient was born and raised in [place]. Patient is . She had 3 children, 2 sons and 1 daughter. One of her sons` is and her other son is Saman and her daughter is Laury. Highest level of education is high school. 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 Spiritual:Patient is Alevism Legal:Patient has a DPOA (Pts brother is self named DPOA) Ethical issues impacting care: Important Contacts Brother-Ilir Lam [phone] / [phone] cell Daughter-Dc Schaeffer [phone] Son-Dc Davison [phone] Daughter in law (was to patient`s son)- Tena Cespedes . 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 Patient was brought in by EMS to the ER on 06/15/17 from [facility] for further evaluation of respiratory distress. Patient was recently hospitalized and treated for respiratory failure secondary to acute congestive heart failure exacerbation and pneumonia in May, and was hospitalized as well for sepsis pneumonia in March. Given ongoing comorbidities, patient is at high risk for further complications, deterioration and decline. . 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 Patient is currently lethargic in respiratory distress. Due to expressive aphasia, and lethargy, medical decision making falls to her brother Ilir Lam who is her health care surrogate Goals: Aggressive short of no code CODE STATUS: No code DNR/DNI Patient communicating with nodding head for "yes" or shaking of head for "no". Addressed code status, asked patient if she would like to be intubated and placed on mechanical ventilation in the event that her respiratory status worsens, patient shook head fo no and asked patient if she would want medical staff to perform CPR in the event that she is in cardiac arrest, patient shook her head for no. Explained to patient that if the above interventions are not carried out, she will . Repeated the questions again and patient`s responses did not change. Telephone conversation with patient`s brother Genaro Hazel who is her health care surrogate. Updated him on patient`s current medical condition. Patient`s brother voiced concern that hospice was consulted without him contacted or informed of his sisters condition. Addressed code status and notified patients brother of patient`s responses and he also elected DNR/DNI for patient. Explained to patient`s brother that patient was critically ill and is currently in intensive care unit. Patient`s brother expressed that he will inform patient`s daughter and son that patient is critically ill. SYMPTOMS: * Shortness of breath: Patient came in with complaints of respiratory distress. Chest x-ray showed pneumonia. chest ultrasound revealed mild left pleural effusion. Patient was started on antibiotics, bronchodilator and furosemide administered. Patient is tachycardic, tachypneic and has increased work of breathing. Patient may benefit from a low dose morphine sulfate. * Debility: Progressive. Patient has a history of CVA with residual left-sided hemiparesis. She has been hospitalized twice in the past 2 months. PT consulted. If goals remain aggressive patient may benefit from physical therapy , speech therapy and Occupational Therapy. Palliative care will continue to follow the patient during hospital course as condition evolves, to assist patient/decision-maker with understanding of their medical conditions, weighing benefits/burdens of treatment options, for clarification of goals of treatment. Additionally will assist with any symptoms of palliative concern Thank you for the opportunity to participate in the care of Ms. Irwin. Attestation To help prompt me to consider important information that might be impacting today's encounter and assessment, information from prior notes written by myself or my colleagues may have been "brought forward" into today's note. My signature on this note, however, is an attestation that I personally performed the exam, history, and/or decision-making noted today, and, unless otherwise indicated, the interactions with patient, family, and staff as well as the review of records all occurred today. I also attest that the listed assessment and stated plan reflect my best clinical judgment today based on the combination of historical information, prior notes, and today's exam/ interactions. When time spent is documented, it refers only to time spent today by the signer, or if indicated, combined time spent today by collaborating physician/nurse practitioner. Flaco Mcbride June 17, 2017 16:16
[2017-06-17] MEDS: ATORVASTATIN 20 MG TAB PO SCH (20:42)
[2017-06-18] VITALS (12 sets, daily range): BP systolic 91–106; BP diastolic 65–79; PULSE 104–118; RESP 26–30; TEMP 96.8–98.1; O2SAT 88–100
[2017-06-18] MEDS: RESP: ALBUTEROL 2.5 MG/IPRATROPIUM 0.5 MG NEB (SCH) NEB ×4 (04:02→16:21)
[2017-06-18] MEDS: RESP: BUDESONIDE 0.5 MG/2 ML NEB NEB SCH (07:49)
[2017-06-18] MEDS: CLOPIDOGREL 75 MG TAB PO SCH (08:03)
[2017-06-18] MEDS: CARVEDILOL 6.25 MG TAB PO SCH (08:03)
[2017-06-18] MEDS: FUROSEMIDE 40 MG/4 ML VIAL IV PUSH SCH (08:03)
[2017-06-18] MEDS: guaiFENesin E.R. 600 MG TAB PO SCH (08:03)
[2017-06-18] MEDS: DIGOXIN 0.125 MG TAB PO SCH (08:03)
[2017-06-18] MEDS: PANTOPRAZOLE SOD 40 MG DELAYED RELEASE TAB PO SCH (08:03)
[2017-06-18] MEDS: GABAPENTIN 300 MG CAP PO SCH ×3 (08:03→17:10)
[2017-06-18] MEDS: SODIUM CHLORIDE 0.9% FLUSH 10 ML FLUSH IV FLUSH SCH (08:03)
--- NOTE | 2017-06-18 12:04 | HHI.PR ---
Subjective Remarks Follow-up sepsis /healthcare associated pneumonia/UTI/acute hypoxic respiratory failure June 16, 2017-patient seen and examined, currently afebrile with improving respiratory symptoms of shortness of breath. Alert but pleasantly confused. Chest ultrasound with evidence of 240+ cc left pleural effusion June 17, 2017-patient seen and examined, +SOB and requiring NPR;+obtunded. afebrile June 18, 2017-patient seen and examined, still critical with increase respiratory work. Tachycardic. Palliative care nurse practitioner able to talk to patient' s brother yesterday, we will inform patient's family regarding her current prognosis Objective Vitals Vital Signs Date Time Temp Pulse Resp B/P (MAP) Pulse Ox O2 Delivery O2 Flow Rate FiO2 06/18/17 10:00 117 06/18/17 08:00 112 06/18/17 08:00 96.8 112 30 106/79 (88) 96 06/18/17 07:52 100 Partial Rebreather 15.00 06/18/17 07:00 96 Partial Non-Rebreather 06/18/17 06:00 108 06/18/17 04:05 99 Partial Rebreather 13.00 06/18/17 04:00 98.1 105 26 94/74 (81) 95 06/18/17 04:00 104 06/18/17 02:00 106 06/18/17 00:00 106 06/18/17 00:00 97.9 106 26 91/66 (74) 96 06/17/17 23:21 100 Partial Rebreather 12.00 06/17/17 22:00 124 06/17/17 20:00 98.0 120 24 142/90 (107) 97 06/17/17 20:00 129 06/17/17 19:50 98 Simple Mask 8.00 06/17/17 19:00 96 Simple Mask 8.00 06/17/17 16:00 97.8 124 27 117/84 (95) 93 I/O 06/17/17 06/17/17 06/17/17 06/18/17 06/18/17 06/18/17 07:00 15:00 23:00 07:00 15:00 23:00 Intake Total 240 ml 360 ml Output Total 350 ml 400 ml Balance -110 ml -40 ml Intake Oral 240 ml 360 ml Output Urine Total 350 ml 400 ml # Voids 1 2 # Bowel Movements 1 0 Result Diagram: 06/16/17 0252 06/16/172055 Objective Remarks GENERAL: obtunded SKIN: Warm and dry. HEAD: Normocephalic. EYES: No scleral icterus. No injection or drainage. NECK: Supple, trachea midline. No JVD or lymphadenopathy. CARDIOVASCULAR: Tachycardic regular rate and rhythm without murmurs, gallops, or rubs. RESPIRATORY: Breath sounds decrease bilaterally. No accessory muscle use. GASTROINTESTINAL: Abdomen soft, non-tender, nondistended. MUSCULOSKELETAL: No cyanosis, or edema. Right sided weakness BACK: Nontender without obvious deformity. No CVA tenderness. A/P Problem List: (1) Sepsis ICD Code: A41.9 - Sepsis, unspecified organism (2) UTI (urinary tract infection) ICD Code: N39.0 - Urinary tract infection, site not specified (3) HCAP (healthcare-associated pneumonia) ICD Code: J18.9 - Pneumonia, unspecified organism (4) Pleural effusion, left ICD Code: J90 - Pleural effusion, not elsewhere classified Status: Acute Assessment and Plan 62-year-old female with Sepsis on presentation Secondary to UTI and HCAP Status post Levaquin IV 1 in ED, continue Levaquin 750 mg IV daily Monitor cultures Healthcare associated pneumonia Continue Levaquin 750 mg IV daily Bronchodilator as needed Maintain oxygen saturation above 88-92% UTI Levaquin IV pending urine culture Left pleural effusion Chest ultrasound ordered this morning with evidence of 241 cc Currently on IV Lasix Hypokalemia Resolved s/p potassium 75 mEq 1 and monitor electrolytes Acute on chronic respiratory failure hypoxic Multi-factorial, combination of left pleural effusion, HCAP Systolic CHF exacerbation- Lasix 40 mg daily. Echocardiogram EF of 45%. Continue Coreg, digoxin History of CVA with right-sided hemiparesis- On Plavix Moderate protein energy malnutrition-albumin is 1.8, total protein is 6.2, patient is cachectic. consult dietary for supplementation DVT prophylaxis: Lovenox Prognosis: Overall guarded, poor Appreciate input from relative care medicine, and awaiting from family to make decision prior to transfer the patient to hospice Omid Manzo MD June 18, 2017 12:04
[2017-06-18] MEDS: LEVOFLOXACIN 750 MG PREMIX INJ 150 ML IV SCH (12:17)
--- NOTE | 2017-06-18 15:44 | HHI.HCPN ---
Reason for visit a. To assist with evaluation and management of symptoms including: Shortness of breath, debility b. To assist medical decision maker(s) with: better understanding of current medical conditions; weighing benefits/burdens of medical treatment options; making medical treatment decisions. Subjective/Interval History Follow-up medically necessary for symptom management and further clarification of goals of care. Patient seen and examined in the room on [facility] in the presence of bedside RN. Patient is awake, lethargic, aphasic. Patient was able to say "hie" when greeted today. Patient denied pain by shaking her head "no" for pain. When asked if she was having difficulty with breathing, patient nodded her head for "yes". Patient follows simple commands. Patient appears to respond appropriately to questions being asked. Patient is now on a partial rebreather, O2 saturations of high 80s-90s. Patient still in respiratory distress, with increased work of breathing using abdominal muscles. Report from bedside RN that patient has been mostly hypotensive with systolic blood pressure in the 90s. Bedside RN reports that patient is only eating pudding out of him meals. No recent lab work or imaging. Introduced hospice philosophy and benefits. Asked patient if she has ever heard about hospice, patient shook head for "no". Explained what it means. I asked patient if she would want to stop aggressive treatment and transition to comfort care, patient shook her head for "no". Asked patient if she would like her daughter to visit with her and she nodded her head for "yes". Telephone conversation with patient`s daughter Laury and informed her that her mother agreed to have her visit. Telephone conversation with patient`s brother Ilir who is the Healthcare surrogate- notified him of patient`s worsening condition and poor prognosis. Patient`s brother planning on coming to see patient shawn. Patient`s brother requesting update from medical team. Goals remain aggressive at this time. . Family/friend interactions Telephone conversation with patient's daughter Laury and patient's brother Ilir ([facility]). . Advance Directives Health Care Surrogate: Copy in medical record Durable Power of Burn Out Tender Lace: Completed, but not made available Advance Directive Specifics Date completed: 06/02/2017 . Health Care Surrogate(s): Brother-Ilir Lam [phone] / [phone] cell . Objective Vital Signs Date Time Temp Pulse Resp B/P (MAP) Pulse Ox O2 Delivery O2 Flow Rate FiO2 06/18/17 12:00 112 06/18/17 12:00 97.2 112 30 97/72 (80) 94 06/18/17 10:00 117 06/18/17 08:00 112 06/18/17 08:00 96.8 112 30 106/79 (88) 96 06/18/17 07:52 100 Partial Rebreather 15.00 06/18/17 07:00 96 Partial Non-Rebreather 06/18/17 06:00 108 06/18/17 04:05 99 Partial Rebreather 13.00 06/18/17 04:00 98.1 105 26 94/74 (81) 95 06/18/17 04:00 104 06/18/17 02:00 106 06/18/17 00:00 106 06/18/17 00:00 97.9 106 26 91/66 (74) 96 06/17/17 23:21 100 Partial Rebreather 12.00 06/17/17 22:00 124 06/17/17 20:00 98.0 120 24 142/90 (107) 97 06/17/17 20:00 129 06/17/17 19:50 98 Simple Mask 8.00 06/17/17 19:00 96 Simple Mask 8.00 06/17/17 16:00 97.8 124 27 117/84 (95) 93 Intake & Output 06/18/17 06/18/17 07:00 19:00 Intake Total 360 ml Output Total 400 ml Balance -40 ml Intake Oral 360 ml Output Urine Total 400 ml # Voids 2 # Bowel Movements 0 Physical Exam CONSTITUTIONAL/GENERAL: This is a cachectic patient, in respiratory distress. TUBES/LINES/DRAINS:PIV, Morton catheter, face mask SKIN: No jaundice, rashes, or lesions. Ecchymoses on upper extremities. No wounds seen anteriorly. Cool bilateral lower extremities. HEAD: Atraumatic. Normocephalic. EYES: Pupils equal and round and reactive. Extraocular motions intact. No scleral icterus. No injection or drainage. Fundi not examined. ENT: Hearing grossly normal. Nose without bleeding or purulent drainage. Dry oral mucosa NECK: Trachea midline. Supple, nontender. CARDIOVASCULAR: Sinus tachycardic,No audible murmurs, gallops, or rubs. No JVD. Peripheral pulses symmetric. RESPIRATORY/CHEST:Labored respirations. Rhonchi to auscultation in all cuadra. Tachypnic. increased work of breathing, now on a partial nonrebreather. GASTROINTESTINAL: Abdomen soft, non-tender, nondistended. No guarding. Hypoactive Bowel sounds GENITOURINARY: Without palpable bladder distension. Mortno catheter in place. MUSCULOSKELETAL: Extremities without clubbing, cyanosis, or edema. Contracture to right hand and foot drop to RLE NEUROLOGICAL: Awake, lethargic and aphasic.-was able to say "hi". Follows commands with LUE and LLE. Right sided hemiparesis PSYCHIATRIC: Unable to assess. Calm. Diagnostic Tests Laboratory Laboratory Tests Test 06/15/17 20:25 06/16/17 02:52 06/16/17 18:00 06/16/17 20:56 Troponin I 0.11 NG/ML (0.02-0.05) 0.08 NG/ML (0.02-0.05) White Blood Count 15.4 TH/MM3 (4.0-11.0) Red Blood Count 4.28 MIL/MM3 (4.00-5.30) Hemoglobin 12.9 GM/DL (11.6-15.3) Hematocrit 39.5 % (35.0-46.0) Mean Corpuscular Volume 92.4 FL (80.0-100.0) Mean Corpuscular Hemoglobin 30.1 PG (27.0-34.0) Mean Corpuscular Hemoglobin Concent 32.6 % (32.0-36.0) Red Cell Distribution Width 15.4 % (11.6-17.2) Platelet Count 263 TH/MM3 (150-450) Mean Platelet Volume 8.9 FL (7.0-11.0) Neutrophils (%) (Auto) 88.7 % (16.0-70.0) Lymphocytes (%) (Auto) 4.4 % (9.0-44.0) Monocytes (%) (Auto) 5.9 % (0.0-8.0) Eosinophils (%) (Auto) 0.2 % (0.0-4.0) Basophils (%) (Auto) 0.8 % (0.0-2.0) Neutrophils # (Auto) 13.7 TH/MM3 (1.8-7.7) Lymphocytes # (Auto) 0.7 TH/MM3 (1.0-4.8) Monocytes # (Auto) 0.9 TH/MM3 (0-0.9) Eosinophils # (Auto) 0.0 TH/MM3 (0-0.4) Basophils # (Auto) 0.1 TH/MM3 (0-0.2) CBC Comment DIFF FINAL Differential Comment Blood Urea Nitrogen 26 MG/DL (7-18) Creatinine 0.52 MG/DL (0.50-1.00) Random Glucose 114 MG/DL (74-106) Total Protein 6.3 GM/DL (6.4-8.2) Albumin 1.9 GM/DL (3.4-5.0) Calcium Level 8.6 MG/DL (8.5-10.1) Alkaline Phosphatase 97 U/L (45-117) Aspartate Amino Transf (AST/SGOT) 23 U/L (15-37) Alanine Aminotransferase (ALT/SGPT) 18 U/L (10-53) Total Bilirubin 0.4 MG/DL (0.2-1.0) Sodium Level 150 MEQ/L (136-145) Potassium Level 3.1 MEQ/L (3.5-5.1) 4.4 MEQ/L (3.5-5.1) Chloride Level 107 MEQ/L (98-107) Carbon Dioxide Level 35.5 MEQ/L (21.0-32.0) Anion Gap 8 MEQ/L (5-15) Estimat Glomerular Filtration Rate 119 ML/MIN (>89) Digoxin Level 0.7 NG/ML (0.8-2.0) Nasal Screen MRSA (PCR) MRSA NOT DETECTED (NOT Magnesium Level 1.6 MG/DL (1.5-2.5) Result Diagram: 06/16/172 06/16/172055 Assessment and Plan Disease Oriented Problem List: (1) Sepsis (2) HCAP (healthcare-associated pneumonia) (3) Pleural effusion, left (4) UTI (urinary tract infection) Symptom Scale: (1) Shortness of breath 0-10 Scale: Unable to quantify Comment: Patient has history of COPD and currently his pneumonia with left pleural effusion. . (2) Debility 0-10 Scale: Unable to quantify Comment: Progressive . Pertinent Non-Medical Issues Psychosocial:Patient was born and raised in [place]. Patient is . She had 3 children, 2 sons and 1 daughter. One of her sons` is and her other son is Saman and her daughter is Laury. Highest level of education is high school. 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 Spiritual:Patient is Denominational Legal:Patient has a DPOA (Pts brother is self named DPOA) Ethical issues impacting care: Important Contacts Brother-Ilir Lam [phone] / [phone] cell Daughter-Dc Schaeffer [phone] Son-Dc Davison [phone] Daughter in law (was to patient`s son)- Tena Cespedes [phone] . 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 Patient was brought in by EMS to the ER on 06/15/17 from [facility] for further evaluation of respiratory distress. Patient was recently hospitalized and treated for respiratory failure secondary to acute congestive heart failure exacerbation and pneumonia in May, and was hospitalized as well for sepsis pneumonia in March. Given ongoing comorbidities, patient is at high risk for further complications, deterioration and decline. . 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 Patient is currently lethargic in respiratory distress. Due to expressive aphasia, and lethargy, medical decision making falls to her brother Ilir Lam who is her health care surrogate Goals: Aggressive short of no code CODE STATUS: No code DNR/DNI Introduced hospice philosophy and benefits. Asked patient if she has ever heard about hospice, patient shook head for "no". Explained what it means. I asked patient if she would want to stop aggressive treatment and transition to comfort care, patient shook her head for "no". Asked patient if she would like her daughter to visit with her and she nodded her head for "yes". Telephone conversation with patient`s daughter Laury and informed her that her mother agreed to have her visit. Telephone conversation with patient`s brother Ilir who is the Healthcare surrogate- notified him of patient`s worsening condition and poor prognosis. Patient`s brother planning on coming to see patient shawn. Patient`s brother requesting update from medical team. Goals remain aggressive at this time. SYMPTOMS: * Shortness of breath: Patient came in with complaints of respiratory distress. Chest x-ray showed pneumonia. chest ultrasound revealed mild left pleural effusion. Patient was started on antibiotics, bronchodilator and furosemide administered. Patient is tachycardic, tachypneic and has increased work of breathing. Patient now on a partial nonrebreather, with O2 saturation in the high 80s-90s. patient may benefit from a low dose morphine sulfate. * Debility: Progressive. Patient has a history of CVA with residual left-sided hemiparesis. She has been hospitalized twice in the past 2 months. PT consulted. If goals remain aggressive patient may benefit from physical therapy , speech therapy and Occupational Therapy. Palliative care will continue to follow the patient during hospital course as condition evolves, to assist patient/decision-maker with understanding of their medical conditions, weighing benefits/burdens of treatment options, for clarification of goals of treatment. Additionally will assist with any symptoms of palliative concern Attestation To help prompt me to consider important information that might be impacting today's encounter and assessment, information from prior notes written by myself or my colleagues may have been "brought forward" into today's note. My signature on this note, however, is an attestation that I personally performed the exam, history, and/or decision-making noted today, and, unless otherwise indicated, the interactions with patient, family, and staff as well as the review of records all occurred today. I also attest that the listed assessment and stated plan reflect my best clinical judgment today based on the combination of historical information, prior notes, and today's exam/ interactions. When time spent is documented, it refers only to time spent today by the signer, or if indicated, combined time spent today by collaborating physician/nurse practitioner. Flaco Mcbride June 18, 2017 15:44
--- NOTE | 2017-06-18 23:45 | HHI.PR ---
Addendum to Inpatient Note Addendum Reason: Additional Documentation Additional Information Note S: Medical team location manager paged to pronounce of patient. Per brief chart review patient admitted for sepsis secondary to UTI and HCAP. Patient with DNR order per chart, confirmed by palliative care note. O: GENERAL: Elderly appearing female lying in bed. SKIN: Cool and dry. Mottling on all 4 extremities. EYES: Fixed and dilated. Negative corneal reflex. HENT: Normocephalic. Atraumatic. Dry mucous membranes. NECK: No visible JVD or lymphadenopathy. CARDIOVASCULAR: No cardiac activity appreciated on four-point anterior auscultation. No palpable pulses in all 4 extremities. RESPIRATORY: No breath sounds appreciated bilaterally to anterior auscultation. No visible inspiratory or expiratory effort. GASTROINTESTINAL: Abdomen nondistended. NEURO/PSYCH: AAO 3. Corneal reflux not intact. GCS: 3 (no motor response, no verbal response, no eye opening) A/P: Ms. Irwin is a 62-year-old female admitted for sepsis who has decompensated with time of at 2244. 1. -Per report patient earlier during the day, however ICD activity continues on telemetry -Attempted to disengage ICD with magnet, however unsuccessful -Per chart review ICD company is [employer] who was contacted and recommended pronouncement of despite ICD activity -Time of called at 2244 after complete exam -Family notified earlier per nursing report -Attending medicine team notified earlier per nursing report DW: Azael Zambrano MD R2 June 18, 2017 23:45
== END 2017-06-19 01:48 | disposition expired | DRG 871 ==
LOC: NEPC 13:59 → NEDA 17:10 → NEDH 20:12 → N03A 06-16 13:10
PROVIDERS: ADMIT Hospitalist; ATTEND Hospitalist
DX: A41.9 Sepsis, unspecified organism (principal); J96.21 Acute and chronic respiratory failure with hypoxia; R64 Cachexia; J18.9 Pneumonia, unspecified organism; I11.0 Hypertensive heart disease with heart failure; E44.0 Moderate protein-calorie malnutrition; I50.20 Unspecified systolic (congestive) heart failure; I95.9 Hypotension, unspecified; J44.0 Chronic obstructive pulmonary disease with (acute) lower respiratory infection; N39.0 Urinary tract infection, site not specified; I69.351 Hemiplegia and hemiparesis following cerebral infarction affecting right dominant side; E78.00 Pure hypercholesterolemia, unspecified; I25.10 Atherosclerotic heart disease of native coronary artery without angina pectoris; K21.9 Gastro-esophageal reflux disease without esophagitis; E78.5 Hyperlipidemia, unspecified; R41.82 Altered mental status, unspecified; Z51.5 Encounter for palliative care; R00.0 Tachycardia, unspecified; E87.6 Hypokalemia; J44.9 Chronic obstructive pulmonary disease, unspecified; I25.2 Old myocardial infarction; Z95.810 Presence of automatic (implantable) cardiac defibrillator; Z87.891 Personal history of nicotine dependence; Z82.49 Family history of ischemic heart disease and other diseases of the circulatory system; Z79.02 Long term (current) use of antithrombotics/antiplatelets; I69.320 Aphasia following cerebral infarction; Z95.1 Presence of aortocoronary bypass graft; Z87.01 Personal history of pneumonia (recurrent); Z66 Do not resuscitate
CPT/HCPCS: 71045; 76604; 80053; 80162; 81001; 82550; 82948; 83605; 83735; 83880; 84132; 84443; 84484; 85025; 85610; 85730; 87040; 87077; 87086; 87186; 87641; 93005; 94640; 94664; 96374; 96375; J1940; J1956; J2060; J3370; J7040; J7050; J7626